=== PATIENT | male | born 1930 | race Asian ===

== ENCOUNTER 2016-06-02 04:02 | Inpatient (IN) | payer MEDICARE, OTHER ==
[~2016-06-02] VITALS: Ht 162.6 cm; Wt 61.8 kg
[2016-06-02] MEDS ORDERED: CEFTRIAXONE 1 GM/50 ML (PMX) 50 ML IVPB STA (04:51)
[2016-06-02] MEDS ORDERED: SOD CHLORIDE 0.9% 1,000 ML IV STA (04:51)
[2016-06-02] MEDS ORDERED: ALBUTEROL 0.5% (NEB) 2.5 MG/0.5 ML AMP INH STA (04:51)
[2016-06-02] MEDS ORDERED: AZITHROMYCIN 500MG/250 ML NS IVPB IV STA (04:51)
--- NOTE | 2016-06-02 04:59 | ERA ---
ER Documentation Chief Complaint Date/Time DATE: 06/02/16 TIME: 04:56 Chief Complaint incessant cough and vomiting since 2250 last night. Appears unwell HPI Patient is an 85-year-old male who has had cough and congestion for the last 3 months however he developed increasing respiratory distress last night. They have seen their primary care physician who is done a chest x-ray was which was within normal limits and who evaluated him for possible recurrent lymphoma which was also negative. Initially the patient had flulike symptoms which started all this coughing and congestion. His flulike symptoms apparently resolved but the coughing and congestion never went away. Patient does not have any chest pain, fever, sore throat, otalgia, or rhinorrhea. His coughing and congestion has progressed however he does not produce any sputum. He has become so dyspneic he can ambulate nor can he lay down flat. He has not had any swelling or edema. He does not have any abdominal pain or nausea or vomiting. He is never experienced these symptoms before. Nothing seems to help him. The remainder of the systems are negative ROS All systems reviewed and are negative except as per history of present illness. Medications Home Meds No Active Prescriptions or Reported Meds Allergies Allergies: Coded Allergies: No Known Allergies (Verified Allergy, Unknown, 04/28/15) PMhx/Soc History of Surgery: Yes (bilat brain hematoma drain,rt knee sx) Anesthesia Reaction: No Hx Neurological Disorder: Yes (Seizure) Hx Respiratory Disorders: No Hx Cardiac Disorders: Yes (HTN) Hx Psychiatric Problems: Yes (Depression) Hx Miscellaneous Medical Probl: Yes (UTI,non-Hodgkins lymphoma,DM) Hx Alcohol Use: No Hx Substance Use: No Hx Tobacco Use: Yes (ex-smoker) Smoking Status: Former smoker FmHx Family History: coronary disease Physical Exam Vitals Vital Signs Date Time Temp Pulse Resp B/P Pulse Ox O2 Delivery O2 Flow Rate FiO2 06/02/16 05:44 97 24 100 Non Rebreather Mask 15.0 06/02/16 05:05 104 32 113/88 98 Non Rebreather 15.0 06/02/16 04:50 Non Rebreather 15 06/02/16 04:11 98.6 109 34 105/58 82 Physical Exam Const: [] Well-developed male lying on the bed with obvious respiratory distress Head: Atraumatic normocephalic Eyes: Normal Conjunctiva ENT: Normal External Ears, Nose and Mouth. Neck: Full range of motion..~ No meningismus. Resp: Moderate respiratory distress noted with tachypnea, retractions, nasal flaring, crackles noted in the right base Cardio: Regular rate and rhythm, no murmurs Abd: Soft, non tender, non distended. Normal bowel sounds Skin: No petechiae or rashes Back: No midline or flank tenderness Ext: No cyanosis, or edema Neur: Awake and alert, oriented 3, generally weak but moves all extremities equally Psych: Normal Mood and Affect Result Diagram: 06/02/16 0505 06/02/16 0505 Results 24 hrs Laboratory Tests Test 06/02/16 04:51 06/02/16 05:05 Arterial Blood HCO3 18.4mmol/L Arterial Blood Base Excess -4.9mmol/L Arterial Blood Oxygen Saturation 95.3mmHG Tom Test ACCEPTAB Arterial Blood Gas Puncture Site Right Radial Arterial Blood Carboxyhemoglobin 0.3% Arterial Blood Date Drawn 06/02/2016 5:37:52 AM Arterial Blood Methemoglobin 0.5% Arterial Blood pCO2 (Temp correct) 29.9mmhg Arterial Blood pH (Temp corrected) 7.408 Arterial Blood pO2 (Temp corrected) 79.8mmHG Blood Gas A-a O2 Differential 603.3mmHg Blood Gas Modality MASK - NRB Blood Gas Notified Time 06/02/2016 5:43:38 AM Blood Gas Notified Whom BR Blood Gas Specimen Source Blood arterial Blood Gas Temperature 37.0C FiO2 100.0% Oxyhemoglobin Percent 94.5% Total Hemoglobin 14.4g/dl Activated Partial Thromboplast Time 25.9Sec Alanine Aminotransferase (ALT/SGPT) 24IU/L Albumin 4.3g/dl Albumin/Globulin Ratio 1.30 Alkaline Phosphatase 106IU/L Anion Gap 23 Aspartate Amino Transf (AST/SGOT) 25IU/L B-Type Natriuretic Peptide 268PG/ML Basophils # 0.010^3/ul Basophils % 0.2% Blood Urea Nitrogen 38mg/dl Calcium Level 9.9mg/dl Carbon Dioxide Level 21mmol/L Chloride Level 100mmol/L Creatinine 0.87mg/dl Direct Bilirubin 0.00mg/dl Eosinophils # 0.010^3/ul Eosinophils % 0.1% Globulin 3.30g/dl Glucose Level 137mg/dl Hematocrit 42.3% Hemoglobin 14.4g/dl INR International Normalized Ratio 0.97 Indirect Bilirubin 0.6mg/dl Lactic Acid Level 6.2mmol/L Lymphocytes # 0.810^3/ul Lymphocytes % 4.9% Mean Corpuscular Hemoglobin 28.8pg Mean Corpuscular Hemoglobin Concent 34.0g/dl Mean Corpuscular Volume 84.6fl Mean Platelet Volume 9.0fl Monocytes # 0.610^3/ul Monocytes % 3.6% Neutrophils # 14.410^3/ul Neutrophils % 90.9% Nucleated Red Blood Cells # 0.010^3/ul Nucleated Red Blood Cells % 0.0/100WBC Platelet Count 82037^3/UL Potassium Level 4.0mmol/L Prothrombin Time 12.9Sec Prothrombin Time Ratio 1.0 Red Blood Count 5.0010^6/ul Red Cell Distribution Width 13.9% Sodium Level 140mmol/L Total Bilirubin 0.6mg/dl Total Protein 7.6g/dl Troponin I < 0.010ng/ml White Blood Count 15.910^3/ul Current Medications Medications (Trade) Dose Ordered Sig/Sidney Route PRN Reason Start Time Stop Time Status Last Admin Dose Admin Sodium Chloride (NS) 1,000 ml @ 1,000 mls/hr Q1H STAT IV 06/02/16 04:51 06/02/16 05:50 DC 06/02/16 05:16 Albuterol (Proventil 0.5% (Neb)) 10 mg ONCE STAT INH 06/02/16 04:51 06/02/16 04:55 DC 06/02/16 05:44 Azithromycin 500 mg 500 mg ONCE STAT IV 06/02/16 04:51 06/02/16 04:55 DC 06/02/16 06:08 Ceftriaxone Sodium (Rocephin) 50 ml @ 100 mls/hr ONCE STAT IVPB 06/02/16 04:51 06/02/16 05:20 DC 06/02/16 05:26 IV Flush 10 ml 10 ml STK-MED ONCE .ROUTE 06/02/16 05:44 06/02/16 05:45 DC Sodium Chloride 100 ml @ ud STK-MED ONCE .ROUTE 06/02/16 05:44 06/02/16 05:45 DC Iohexol 100 ml @ ud STK-MED ONCE .ROUTE 06/02/16 05:44 06/02/16 05:45 DC Iohexol (Omnipaque) 100 ml @ ud STK-MED ONCE .ROUTE 06/02/16 05:44 06/02/16 05:45 DC Procedures/MDM Differential includes but is not limited to congestive heart failure, pulmonary edema, pneumonia, pleural effusion, pulmonary embolus, cancer EKG: Rate/Rhythm: Normal Sinus Rhythm at 103 bpm patient has T-wave inversions noted in lateral leads, he has significant motion artifact noted QRS, ST, T-waves: No changes consistent w/ acute ischemia Impression: No evidence of ischemia or arrhythmia Chest x-ray confirms that he has a right middle and right lower lobe pneumonia Patient is currently receiving his neb treatment. I have a call out to Dr. Maribeth Lima to admit him to the stepdown unit. I have discussed his pneumonia with his family. A CAT scan of his chest is pending at this time. Critical care time of 40 minutes not to include procedures. Departure Diagnosis: Primary Impression: Pneumonia Qualified Code: J18.9 - Pneumonia of right lower lobe due to infectious organism Additional Impressions: Dyspnea Qualified Code: R06.02 - Shortness of breath Hypoxemia Respiratory distress Condition: JILLIAN Daigle Jun 02, 2016 04:59
[2016-06-02 05:21] LABS: ADD SCAN DIFF NO
[2016-06-02 05:24] LABS: BASOPHILS % 0.2 % (0.0-2.0); EOSINOPHILS % 0.1 % (0.0-7.0); HEMATOCRIT 42.3 % (42.0-52.0); HEMOGLOBIN 14.4 g/dl (14.0-18.0); LYMPHOCYTES # 0.8 10^3/ul (0.8-2.9); LYMPHOCYTES % 4.9 % (15.0-51.0); MEAN CORPUSCULAR HEMOGLOBIN 28.8 pg (29.0-33.0); MEAN CORPUSCULAR VOLUME 84.6 fl (82.0-101.0); MONOCYTE # 0.6 10^3/ul (0.3-0.9); MONOCYTES % 3.6 % (0.0-11.0); NEUTROPHIL # 14.4 10^3/ul (1.6-7.5); NEUTROPHILS % 90.9 % (39.0-77.0); PLATELET COUNT 301 10^3/UL (140-415); RED CELL DISTRIBUTION WIDTH 13.9 % (11.5-14.5); WHITE BLOOD COUNT 15.9 10^3/ul (4.8-10.8)
[2016-06-02 05:34] LABS: ALBUMIN 4.3 g/dl (3.3-4.9)
[2016-06-02 05:35] LABS: CHLORIDE 100 mmol/L (97-110); INR 0.97; PROTIME 12.9 Sec (12.2-14.2); SODIUM 140 mmol/L (135-144)
[2016-06-02 05:36] LABS: PARTIAL THROMBOPLASTIN TIME 25.9 Sec (25.0-35.0)
[2016-06-02 05:37] LABS: ALKALINE PHOSPHATASE 106 IU/L (42-121); ANION GAP 23 (8-16); ASPARTATE AMINO TRANSFERASE 25 IU/L (15-46); BILIRUBIN,INDIRECT 0.6 mg/dl (0-1.1); BILIRUBIN,TOTAL 0.6 mg/dl (0.2-1.3); CARBON DIOXIDE 21 mmol/L (21-31); CREATININE 0.87 mg/dl (0.61-1.24); TOTAL PROTEIN 7.6 g/dl (6.1-8.1)
[2016-06-02 05:38] LABS: ALANINE AMINOTRANSFERASE 24 IU/L (13-69); BLOOD UREA NITROGEN 38 mg/dl (7-20); CALCIUM 9.9 mg/dl (8.4-10.2); GLUCOSE 137 mg/dl (70-220)
[2016-06-02 05:43] LABS: AADO2 Arterial 603.3 mmHg (7.0-24.0); Allen Test ACCEPTAB; Arterial Base Excess -4.9 mmol/L (-3.0-3); Arterial COHb 0.3 % (0.0-3.0); Arterial Fraction of Oxyhgb 94.5 % (93.0-99.0); Arterial HCO3 18.4 mmol/L (22.0-26.0); Arterial MetHb 0.5 % (0.0-1.5); Arterial Total Hemglobin 14.4 g/dl (12.0-18.0); MODE MASK - NRB
[2016-06-02] MEDS ORDERED: SOD CHLORIDE 0.9% 100 ML ONE (05:44)
[2016-06-02] MEDS ORDERED: IOHEXOL 100 ML ONE ×2 (05:44)
[2016-06-02 05:47] LABS: B-TYPE NATRIURETIC PEPTIDE 268 PG/ML (0-450)
[2016-06-02 05:52] LABS: TROPONIN-I < 0.010 ng/ml (0.00-0.12)
--- NOTE | 2016-06-02 06:11 | RADRPT ---
PROCEDURE: CHEST - 1 VIEW CLINICAL INDICATION: 85-year-old male with shortness of breath. TECHNIQUE: A single frontal AP view of the chest was performed portably. The images were reviewed on a PACS workstation. COMPARISON: And 2015 FINDINGS: The cardiomediastinal silhouette is within normal limits. There is diffuse patchy infiltrate within the right mid/lower lung zone. There is mild left basilar subsegmental atelectasis. There is no evidence for congestive heart failure. There is no evidence for pneumothorax. The osseous structures are intact. IMPRESSION: 1. Diffuse patchy right mid/lower lung zone infiltrate. 2. Mild left basilar subsegmental atelectasis. .Ray Ace MD, MD Date Time Electronically viewed and signed by .Ray Ace MD, MD on 06/02/2016 06:11 .Missy/
[2016-06-02] MEDS ORDERED: SOD CHLORIDE 0.9% 1,000 ML IV SCH (07:51)
[2016-06-02] MEDS ORDERED: DOCUSATE SODIUM 100 MG CAP PO PRN (08:00)
[2016-06-02] MEDS ORDERED: ONDANSETRON 4 MG INJ IV PRN ×2 (08:00)
[2016-06-02] MEDS ORDERED: ACETAMINOPHEN 325 MG TAB PO PRN (08:00)
[2016-06-02] MEDS ORDERED: NACL 0.9% 3 ML SYG IV SCH (08:00)
[2016-06-02] MEDS ORDERED: SOD CHLORIDE 0.9% 1,000 ML IV ONE ×2 (08:00→10:30)
[2016-06-02] MEDS ORDERED: MAGNESIUM HYDROXIDE 30ML CUP PO PRN (08:00)
[2016-06-02] MEDS ORDERED: HYDROCODONE/APAP (5/325) TAB PO PRN ×2 (08:00)
[2016-06-02] MEDS ORDERED: BISACODYL (EC) 5 MG TAB PO PRN (08:00)
--- NOTE | 2016-06-02 08:12 | EN ---
Date/Time of Note Date/Time of Note DATE: 06/02/16 TIME: 08:11 ER Progress Note This patient was signed out to me as the admitting physician had not been spoken to. I spoke to Dr. Benito, who will be admitting this patient to telemetry. The admission underwent an that her Dr. Ahn because Dr. Choudhury name did not appear as an option in the computer even though he does have admitting privileges here. Patient is currently doing well and speaking full sentences on a nonrebreather mask. AMARI FOSTER DO Jun 02, 2016 08:12
[2016-06-02] MEDS ORDERED: HYPOGLYCEMIA PROTOCOL when Glucose is <70 mg/dL or symptomatic <90 mg/dL. XX ONE (08:30)
[2016-06-02] MEDS: HEPARIN 5,000 UNIT/0.5 ML SYG SC SCH ×2 (08:44→22:36)
[2016-06-02] MEDS: metroNIDAZOLE 500 MG/NS (PMX) 100 ML IVPB SCH ×3 (08:46→22:28)
[2016-06-02] MEDS: IPRATROPIUM (NEB) 0.5 MG/2.5 ML AMP NEB SCH ×5 (09:00→21:24)
[2016-06-02] MEDS: ALBUTEROL 0.5% (NEB) 2.5 MG/0.5 ML AMP NEB SCH ×5 (09:00→21:24)
--- NOTE | 2016-06-02 09:22 | RADRPT ---
PROCEDURE: CTA Chest. CLINICAL INDICATION: Shortness of breath. TECHNIQUE: Multiple contiguous axial CT images of the chest were obtained following the administra tion of 110 cc of Omnipaque 350 intravenous contrast. Coronal, sagittal and 3-D reconstructions we re also obtained. CTDIvol(mGy): 4.69, 32.86, 10.54; Total Exam DLP (mGy-cm): 437.77. COMPARISON: Chest x-ray 06/02/2016. FINDINGS: Limited imaging of the lower neck is unremarkable. The heart is not enlarged. There is no pericardial effusion. There is no mediastinal, hilar or axi llary lymphadenopathy. The thoracic aorta is normal in caliber with atherosclerotic calcification. The pulmonary arteries are not enlarged. There are no central filling defects to suggest the prese nce of acute pulmonary embolism. Patchy consolidation is seen within throughout the right lung. Scattered few peribronchovascular gr ound-glass nodules are also present throughout the right lung. The left lung is clear. There is no pleural effusion. The tracheobronchial tree is normal in caliber. Limited imaging of the upper abdomen is unremarkable. Bony mineralization is decreased. Moderate anterior wedge deformity of L1 is observed. Degenerativ e changes of the spine are present. IMPRESSION: No evidence of acute pulmonary embolism. Patchy consolidation throughout the right lung suggesting sequelae of pneumonia. Correlate with del ropriate clinical data and signs and symptomatology. RPTAT: HLST .Sophy Green MD, MD Date Time Electronically viewed and signed by .Sophy Green MD, on 06/02/2016 09:22 .T/
[2016-06-02] MEDS ORDERED: DEXTROSE 50% 50 ML SYRINGE IV PRN ×2 (09:30)
[2016-06-02] MEDS ORDERED: GLUCAGON 1 MG INJ IM PRN (09:30)
[2016-06-02] MEDS ORDERED: GLUCOSE GEL 15 GRAM TUBE PO PRN ×2 (09:30)
[2016-06-02] MEDS ORDERED: GLUCOSE GEL 15 GRAM TUBE BUCCAL PRN (09:30)
--- NOTE | 2016-06-02 10:44 | HP ---
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 Multiple possible etiologies of which aspiration PNA is most likely. But also with confirmed Influenza B. Can also have CAP. Lower likelihood for health care associated PNA -empiric abx: ceftriaxone/azithro/flagyl. Low threshold to broaden to vanc/zosyn -oseltamivir 75 mg po BID x 5 days -f/u cultures -trend lactate -currently receiving 3 L NS. Also running NS 100 cc/hr #aspiration PNA -see above #influenza B -see above Pulm #respiratory distress -NRB, titrate 02 as needed -will avoid BIPAP given aspiration risk, intubation is ok but not necessary at this time Acid/Base (renal) #lactic acidosis-likely 2/2 sepsis and dehdration in setting of recent emesis. -aggressive fluid resuscitation for now Cards #HTN-currently normotensive likely 2/2 volume depletion/sepsis -will hold off on meds for now. Can add back norvasc 5 and spironolactone when improved Endo #DMII-BG goal 140-180. Well controlled at home -sliding scale for now -hold lantus 20 for now as NPO -hold metformin in inpatient setting Neuro #dysphagia -formal speech eval when clinically improved -no feeds for now -can resume low dose d5 later today but will have to monitor BG closely Rheum #gout -hold allopurinol for now to minimize pill burden Goals of Care -had at length discussion with patient and son. Patient is DNR. Short term intubation ok. Central line if indicated would be ok as well for pressors, etc. Fen/PPX -NPO for now -HSQ/SCD for DVT ppx -GI ppx will be ordered IV for now as patient with hx of GERD and would like to minimize pill burden at this time. HPI/ROS Admit Date/Time Admit Date/Time 06/02/2016 0900 Hx of Present Illness *hx obtained from patient and confirmed by son who was present throughout encounter. 85 y/o male pmh idiopathic SDH s/p craniotomy x 2, G tube placement for dysphagia, DMII (Last A1c 6.1), HTN, Gout, HLD, Non Hodgkins Lymphoma (in remission) who presented with respiratory distress and found to have RML/RLL PNA. Patient has had cough for about 3 months. He has been G tube dependent but had passed a swallow study about 3 months ago and soft oral feeds were starting to be introduced when patient developed a cough. Patient has had a cough, mostly at night for 3 months. Has had outpatient chest xrays and multiple courses of abx. Patient describes that cough is mostly at night when he is sleeping or laying down. Of note patient has continuous feeds for 20 hours per day, even at night when supine/sleeping. 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 He describes that vomitus was mostly g tube feeds. Er course: patient came in around 4 am. Was saturating low 80s on RA. Tachypnic to mid 30s. Started on NRB. Given 2 L NS. Lactic acid initially 6.2 on repeat ~ 12. 3rd liter of NS ordered. Leukocytosis w/ neutrophil predominance, WBC 15.9. He had a CXR w/ e/o R mid/lower lobe patchy infiltrate. Also had CTA which ruled out PE. Patient received azithromycin and rocephin IV x1. Also received nebs. AB.4 29/.9 79 18 on 15 L NRB. Blood cultures and flu swab also done. Patient found to be positive for Influenza B. Tamiflu ordered. EKG NSR w/ no e/ o acute ischemia. At this point patient reports sob mildly improved. Tachypnea has improved. He is saturating well on 10 L NRB. He denies fevers, chills, chest pain, diarrhea, constipation, dysuria, difficulty voiding, abdominal pain. PMH/Family/Social Past Medical History NHL (PET negative 2016), idiopathic SDH s/p craniotomy x 2, Dysphagia s/p G tube , DMII (A1c 6.1), HTN, HLD Past Surgical History appendectomy, tonsillectomy, laminectomy, prostatectomy, craniotomy x 2. Past Surgical Hx: appendectomy, other Family History Significant Family History: no pertinent family hx Social History Alcohol Use: none Smoking Status: Former smoker Drug Use: none Exam/Review of Systems Vital Signs Vitals Vital Signs Date Time Temp Pulse Resp B/P Pulse Ox O2 Delivery O2 Flow Rate FiO2 06/02/16 07:44 109 31 110/64 96 Non Rebreather 10.0 06/02/16 04:11 98.6 Intake and Output 06/01/16 06/01/16 06/02/16 15:00 23:00 07:00 Intake Total 50 ml Balance 50 ml Exam Exam Gen: mild respiratory distress, WD/WN HEENT: OP clear, no scleral icterus, MMM Resp: Crackles/mild wheezes RML/RLL. minimal wheezing on left. Cards: distant heart sounds but appears to be rrr w/o murmur/rubs/gallops Abd: soft, NT/ND, +BS, area around G tube without erythema/tenderness/ cellulitis. No purulence. Ext: no c/c/e Labs Result Diagram: 06/02/16 0505 06/02/16 0505 Medications Medications Current Medications Sodium Chloride (NS) 1,000 ml @ 100 mls/hr Q10H IV Last administered on 08:34; Admin Dose 100 MLS/HR; Start 06/02/16 at 07:51; Stop 06/02/16 at 16: 00 Ondansetron HCl (Zofran Inj) 4 mg Q6H PRN IV NAUSEA AND/OR VOMITING; Start at 08:00 Acetaminophen (Tylenol Tab) 650 mg Q6H PRN PO PAIN LEVEL 1-3 OR FEVER; Start at 08:00 Bisacodyl (Dulcolax) 5 mg DAILY PRN PO CONSTIPATION; Start 06/02/16 at 08:00 Heparin Sodium (Porcine) 5000 unit 5,000 unit Q12 SC Last administered on 08:44; Admin Dose 5,000 UNIT; Start 06/02/16 at 09:00 Ceftriaxone Sodium 50 ml @ 100 mls/hr Q24H IVPB ; Start 06/03/16 at 05:00 Azithromycin 250 ml @ 250 mls/hr Q24H IV ; Start 06/03/16 at 06:00 Metronidazole (Flagyl 500 Mg (Pmx)) 100 ml @ 100 mls/hr Q8 IVPB Last administered on 06/02/16t 08:46; Admin Dose 100 MLS/HR; Start 06/02/16 at 08:30 Miscellaneous Information 1 ea NOTE XX ; Start 06/02/16 at 09:30 Glucose (Glutose) 15 gm Q15M PRN PO DECREASED GLUCOSE; Start 06/02/16 at 09:30 Glucose (Glutose) 22.5 gm Q15M PRN PO DECREASED GLUCOSE; Start 06/02/16 at 09: 30 Dextrose (D50w Syringe) 25 ml Q15M PRN IV DECREASED GLUCOSE; Start 06/02/16 at 09:30 Dextrose (D50w Syringe) 50 ml Q15M PRN IV DECREASED GLUCOSE; Start 06/02/16 at 09:30 Glucagon (Glucagen) 1 mg Q15M PRN IM DECREASED GLUCOSE; Start 06/02/16 at 09:30 Glucose (Glutose) 15 gm Q15M PRN BUCCAL DECREASED GLUCOSE; Start 06/02/16 at 09 :30 Diagnostic Test (Pha) (Accucheck) 1 ea 02 XX ; Start 06/03/16 at 02:00 Levetiracetam (Keppra) 500 mg Q12 PO ; Start 06/02/16 at 21:00 SEDA BERGERON MD Jun 02, 2016 10:19
[2016-06-02] MEDS: OSELTAMIVIR 75 MG CAP PO SCH ×2 (10:46→22:23)
[2016-06-02] MEDS: INSULIN ASPART [NOVOLOG] 3 ML PEN SC SCH ×3 (12:00→21:00)
[2016-06-02 16:43] LABS: ADD UMIC NO; URINE BILIRUBIN (Dip) NEGATIVE (NEGATIVE); URINE BLOOD (Dip) NEGATIVE (NEGATIVE); URINE COLOR LT. YELLOW (YELLOW); URINE GLUCOSE (Dip) NEGATIVE (NEGATIVE); URINE KETONES (Dip) TRACE (NEGATIVE); URINE LEUKOCYTE ESTERASE (Dip) NEGATIVE (NEGATIVE); URINE NITRITE (Dip) NEGATIVE (NEGATIVE); URINE TOTAL PROTEIN (Dip) NEGATIVE (NEGATIVE); URINE UROBILINOGEN (Dip) 0.2 E.U./dL (0.1-1.0)
[2016-06-02 16:51] LABS: AADO2 Arterial 323.3 mmHg (7.0-24.0); Allen Test ACCEPTAB; Arterial Base Excess -11.8 mmol/L (-3.0-3); Arterial COHb 0.1 % (0.0-3.0); Arterial Fraction of Oxyhgb 94.8 % (93.0-99.0); Arterial HCO3 12.7 mmol/L (22.0-26.0); Arterial MetHb 0.5 % (0.0-1.5); Arterial Total Hemglobin 13.3 g/dl (12.0-18.0); MODE MASK - SIMPLE
[2016-06-02] MEDS: DEXTROSE 5%-0.45% NACL 1,000 ML IV SCH (18:15)
[2016-06-02 20:30] VITALS: BP 139/79; PULSE 103; RESP 20
[2016-06-02 20:40] VITALS: PULSE 102
[2016-06-02 20:45] VITALS: Ht 162.6 cm; Wt 61.8 kg
[2016-06-02 21:05] VITALS: BP 139/79; RESP 16
[2016-06-02] MEDS: LEVETIRACETAM 500 MG TAB PO SCH (22:23)
[2016-06-02 23:22] VITALS: BP 139/72; RESP 16
[2016-06-03] VITALS (12 sets, daily range): BP systolic 103–135; BP diastolic 60–68; PULSE 93–98; RESP 16–18
[2016-06-03] MEDS: INSULIN ASPART [NOVOLOG] 3 ML PEN SC SCH ×5 (00:42→21:00)
[2016-06-03] MEDS: IPRATROPIUM (NEB) 0.5 MG/2.5 ML AMP NEB SCH ×6 (01:14→21:00)
[2016-06-03] MEDS: ALBUTEROL 0.5% (NEB) 2.5 MG/0.5 ML AMP NEB SCH ×6 (01:14→21:00)
[2016-06-03] MEDS: ACCUCHECK AT 2AM (Patients on SS coverage) XX SCH (02:00)
[2016-06-03] MEDS ORDERED: [UNRECOGNIZED DRUG - CODE] GTB (05:16)
[2016-06-03] MEDS ORDERED: SPIR100T31 GTB (05:16)
[2016-06-03] MEDS ORDERED: LEVE500T8 GTB (05:16)
[2016-06-03] MEDS ORDERED: CLON-379 GTB (05:16)
[2016-06-03] MEDS ORDERED: CHLO12TA GTB (05:16)
[2016-06-03] MEDS ORDERED: MAGN400T27 GTB (05:16)
[2016-06-03] MEDS ORDERED: CHOL40002 GTB (05:16)
[2016-06-03] MEDS ORDERED: LANT3I SC (05:16)
[2016-06-03] MEDS ORDERED: AMLO-145 GTB (05:16)
[2016-06-03] MEDS ORDERED: METF500T4 PO (05:16)
[2016-06-03] MEDS ORDERED: METF-382 GTB (05:16)
[2016-06-03] MEDS ORDERED: ALLO100T GTB (05:16)
[2016-06-03] MEDS ORDERED: LACT1CAP35 GTB (05:16)
[2016-06-03] MEDS ORDERED: ACET500C5 GTB (05:16)
[2016-06-03] MEDS: DEXTROSE 5%-0.45% NACL 1,000 ML IV SCH ×2 (05:20→10:58)
[2016-06-03] MEDS: CEFTRIAXONE 1 GM/50 ML (PMX) 50 ML IVPB SCH (05:31)
[2016-06-03] MEDS: metroNIDAZOLE 500 MG/NS (PMX) 100 ML IVPB SCH ×3 (06:11→22:38)
[2016-06-03 06:52] LABS: ADD SCAN DIFF NO
[2016-06-03 07:06] LABS: BASOPHILS % 0.2 % (0.0-2.0); EOSINOPHILS % 0.1 % (0.0-7.0); HEMATOCRIT 30.6 % (42.0-52.0); HEMOGLOBIN 10.4 g/dl (14.0-18.0); LYMPHOCYTES # 1.2 10^3/ul (0.8-2.9); LYMPHOCYTES % 6.4 % (15.0-51.0); MEAN CORPUSCULAR HEMOGLOBIN 28.9 pg (29.0-33.0); MEAN PLATELET VOLUME 9.4 fl (7.4-10.4); MONOCYTE # 0.8 10^3/ul (0.3-0.9); MONOCYTES % 4.2 % (0.0-11.0); NEUTROPHIL # 16.5 10^3/ul (1.6-7.5); NEUTROPHILS % 87.4 % (39.0-77.0); PLATELET COUNT 245 10^3/UL (140-415); RED CELL DISTRIBUTION WIDTH 14.2 % (11.5-14.5); WHITE BLOOD COUNT 18.9 10^3/ul (4.8-10.8)
[2016-06-03 07:16] LABS: POTASSIUM 3.6 mmol/L (3.5-5.1)
[2016-06-03 07:19] LABS: CREATININE 0.6 mg/dl (0.61-1.24)
[2016-06-03 07:23] LABS: CALCIUM 8.9 mg/dl (8.4-10.2); MAGNESIUM 1.5 mg/dl (1.7-2.5)
--- NOTE | 2016-06-03 07:47 | PN ---
Date/Time of Note Date/Time of Note DATE: 06/03/16 TIME: 07:35 Assessment/Plan VTE Prophylaxis VTE Prophylaxis Intervention: SCD's Lines/Catheters IV Catheter Type (from Nrs): [place] Lock Urinary Cath still in place: Yes Reason Cath still needed: urinary retention Assessment/Plan Chief Complaint/Hosp Course 1. R pneumonia , either aspiration or community acquired . 2. h/o bilateral subdural hematomas s/p surgery 3. non Hodgekins lymphoma 4. DM 5. HTN 6. h/o encephalitis / encephalopathy 1 year ago 7. diffuse weakness 8. recent PET scan showed bilateral hydronephrosis , renal ultrasound ordered . 9. dysphagia , speech therapy ordered .he has PEG for feeding , dietary consult Problems: Subjective 24 Hr Interval Summary Free Text/Dictation He is awake but does have some expressive aphasia .He was admitted yesterday morning with an expressive aphasia . Respiratory: cough Cardiovascular: no complaints Gastrointestinal: no complaints Genitourinary: no complaints Exam/Review of Systems Vital Signs Vitals Vital Signs Date Time Temp Pulse Resp B/P Pulse Ox O2 Delivery O2 Flow Rate FiO2 06/03/16 05:28 89 18 94 Nasal Cannula 4.0 37 06/03/16 03:28 98.2 135/68 Intake and Output 06/02/16 06/02/16 06/03/16 15:00 23:00 07:00 Intake Total 1055 ml Output Total 1850 ml Balance -795 ml Exam Constitutional: alert Psych: confusion Head: normocephalic Respiratory: congested cough Cardiovascular: regular rate and rhythm Gastrointestinal: soft Musculoskeletal: nl extremities to inspection Results Result Diagram: 06/03/16 0522 06/03/16 0522 Results 24 hrs Laboratory Tests Test 06/02/16 09:39 06/02/16 10:08 06/02/16 12:32 06/02/16 14:17 Lactic Acid Level 12.2 *H 11.5 *H Arterial Blood HCO3 12.7 L Arterial Blood Base Excess -11.8 L Arterial Blood Oxygen Saturation 95.4 Tom Test ACCEPTAB Arterial Blood Gas Puncture Site Right Radial Arterial Blood Carboxyhemoglobin 0.1 Arterial Blood Date Drawn 06/02/2016 4:45:30 PM Arterial Blood Methemoglobin 0.5 Arterial Blood pCO2 (Temp correct) 25.9 L Arterial Blood pH (Temp corrected) 7.310 L Arterial Blood pO2 (Temp corrected) 83.2 Blood Gas A-a O2 Differential 323.3 H Blood Gas Modality MASK - SIMPLE Blood Gas Notified Time 06/02/2016 4:51:13 PM Blood Gas Notified Whom RT Blood Gas Specimen Source Blood arterial Blood Gas Temperature 37.0 FiO2 61.0 Oxyhemoglobin Percent 94.8 Total Hemoglobin 13.3 Bedside Glucose 220 Test 06/02/16 16:35 06/02/16 22:26 06/03/16 00:41 06/03/16 05:22 Urine Bilirubin NEGATIVE Urine Clarity CLEAR Urine Color LT. YELLOW Urine Glucose NEGATIVE Urine Hemoglobin NEGATIVE Urine Ketones TRACE Urine Leukocyte Esterase NEGATIVE Urine Nitrite NEGATIVE Urine Specific [place] 1.015 Urine Total Protein NEGATIVE Urine Urobilinogen 0.2 E.U./dL Urine pH 5.5 Bedside Glucose 197 164 Anion Gap 18 H Basophils # 0.0 Basophils % 0.2 Blood Urea Nitrogen 20 # Calcium Level 8.9 Carbon Dioxide Level 19 L Chloride Level 108 Creatinine 0.60 L Eosinophils # 0.0 Eosinophils % 0.1 Glucose Level 129 Hematocrit 30.6 #L Hemoglobin 10.4 #L Lactic Acid Level 3.2 H Lymphocytes # 1.2 Lymphocytes % 6.4 L Magnesium Level 1.5 L Mean Corpuscular Hemoglobin 28.9 L Mean Corpuscular Hemoglobin Concent 34.0 Mean Corpuscular Volume 85.0 Mean Platelet Volume 9.4 Monocytes # 0.8 Monocytes % 4.2 Neutrophils # 16.5 H Neutrophils % 87.4 H Nucleated Red Blood Cells # 0.0 Nucleated Red Blood Cells % 0.0 Platelet Count 245 Potassium Level 3.6 Red Blood Count 3.60 #L Red Cell Distribution Width 14.2 Sodium Level 141 White Blood Count 18.9 H Medications Medications Current Medications Ondansetron HCl (Zofran Inj) 4 mg Q6H PRN IV NAUSEA AND/OR VOMITING; Start at 08:00 Acetaminophen (Tylenol Tab) 650 mg Q6H PRN PO PAIN LEVEL 1-3 OR FEVER; Start at 08:00 Bisacodyl (Dulcolax) 5 mg DAILY PRN PO CONSTIPATION; Start 06/02/16 at 08:00 Heparin Sodium (Porcine) 5000 unit 5,000 unit Q12 SC Last administered on t 22:36; Admin Dose 5,000 UNIT; Start 06/02/16 at 09:00 Ceftriaxone Sodium 50 ml @ 100 mls/hr Q24H IVPB Last administered on 05:31; Admin Dose 100 MLS/HR; Start 06/03/16 at 05:00 Azithromycin 250 ml @ 250 mls/hr Q24H IV ; Start 06/03/16 at 06:00 Metronidazole (Flagyl 500 Mg (Pmx)) 100 ml @ 100 mls/hr Q8 IVPB Last administered on 06/03/16 06:11; Admin Dose 100 MLS/HR; Start 06/02/16 at 08:30 Miscellaneous Information 1 ea NOTE XX ; Start 06/02/16 at 09:30 Glucose (Glutose) 15 gm Q15M PRN PO DECREASED GLUCOSE; Start 06/02/16 at 09:30 Glucose (Glutose) 22.5 gm Q15M PRN PO DECREASED GLUCOSE; Start 06/02/16 at 09: 30 Dextrose (D50w Syringe) 25 ml Q15M PRN IV DECREASED GLUCOSE; Start 06/02/16 at 09:30 Dextrose (D50w Syringe) 50 ml Q15M PRN IV DECREASED GLUCOSE; Start 06/02/16 at 09:30 Glucagon (Glucagen) 1 mg Q15M PRN IM DECREASED GLUCOSE; Start 06/02/16 at 09:30 Glucose (Glutose) 15 gm Q15M PRN BUCCAL DECREASED GLUCOSE; Start 06/02/16 at 09 :30 Diagnostic Test (Pha) (Accucheck) 1 ea 02 XX ; Start 06/03/16 at 02:00 Levetiracetam 500 mg 500 mg Q12 PO Last administered on 06/02/16 22:23; Admin Dose 500 MG; Start 06/02/16 at 21:00 Dextrose/Sodium Chloride (D5-1/2ns) 1,000 ml @ 75 mls/hr [id number] IV Last administered on 06/02/16 18:15; Admin Dose 75 MLS/HR; Start 06/02/16 at 16:00 Oseltamivir Phosphate (Tamiflu) 75 mg Q12 PO Last administered on 06/02/16 22: 23; Admin Dose 75 MG; Start 06/02/16 at 10:30; Stop 06/07/16 at 10:29 Allopurinol (Zyloprim) 100 mg DAILY GTB ; Start 06/03/16 at 09:00; Status UNV Amlodipine Besylate (Norvasc) 5 mg DAILY GTB ; Start 06/03/16 at 09:00; Status UNV Clonidine (Catapres) 0.1 mg Q4H PRN GTB ELEVATED BLOOD PRESSURE; Start at 07:30; Status UNV Levetiracetam (Keppra) 500 mg BID GTB ; Start 06/03/16 at 09:00; Status UNV Magnesium Oxide (Mag-Ox 400) 400 mg BID GTB ; Start 06/03/16 at 09:00; Status UNV Metformin HCl (Glucophage) 500 mg BID GTB ; Start 06/03/16 at 09:00; Status UNV Spironolactone (Aldactone) 25 mg DAILY GTB ; Start 06/03/16 at 09:00; Status UNV Miscellaneous Information 2,000 unit DAILY GTB ; Start 06/03/16 at 09:00; Status UNV Miscellaneous Information 1 each DAILY GTB ; Start 06/03/16 at 09:00; Status UNV Miscellaneous Information 1 each DAILY GTB ; Start 06/03/16 at 09:00; Status UNV MACIEJ VIDES MD Jun 03, 2016 07:46
[2016-06-03] MEDS: [UNRECOGNIZED DRUG - OTHER] XX SCH ×2 (08:00→16:00)
--- NOTE | 2016-06-03 08:06 | RADRPT ---
PROCEDURE: XR Chest. CLINICAL INDICATION: Shortness of breath. TECHNIQUE: Single frontal view. COMPARISON: 06/02/2016. FINDINGS: There is patchy air space disease throughout the right mid and lower lung zones consistent with pneu monia, unchanged. The lungs are otherwise clear. The heart size is normal. There is no pleural effusion. There is no pneumothorax. IMPRESSION: 1. Patchy pneumonia in the right mid and lower lung zones, unchanged. 2. Otherwise normal chest x-ray. RPTAT: QQ .Brooks Mares MD, MD Date Time Electronically viewed and signed by .Brooks Mares MD, MD on 06/03/2016 08:06 .R/
[2016-06-03] MEDS: ALLOPURINOL 100 MG TAB GTB SCH (08:39)
[2016-06-03] MEDS: CHOLECALCIFEROL 1,000 UNIT TAB GTB SCH (08:39)
[2016-06-03] MEDS: OSELTAMIVIR 75 MG CAP PO SCH ×2 (08:39→22:37)
[2016-06-03] MEDS: MULTIVITAMINS 5 ML CUP GTB SCH (08:39)
[2016-06-03] MEDS: SPIRONOLACTONE 25 MG TAB GTB SCH (08:40)
[2016-06-03] MEDS: metFORMIN 500 MG TAB GTB SCH ×2 (08:40→18:15)
[2016-06-03] MEDS: MAGNESIUM OXIDE 400 MG TAB GTB SCH ×2 (08:40→22:38)
[2016-06-03] MEDS: LEVETIRACETAM 500 MG TAB PO SCH ×2 (09:00→21:00)
[2016-06-03] MEDS: AZITHROMYCIN 500MG/NS (PMX) 250 ML IV SCH ×2 (09:00→10:58)
[2016-06-03] MEDS: LEVETIRACETAM 500 MG TAB GTB SCH ×2 (09:24→22:39)
--- NOTE | 2016-06-03 09:25 | RADRPT ---
PROCEDURE: Retroperitoneal US. CLINICAL INDICATION: Pain, hydronephrosis TECHNIQUE: Multiple sonographic images of the kidneys and retroperitoneum were obtained. The imag es were reviewed on a PACS workstation. COMPARISON: 06/02/2016 FINDINGS: The kidneys are normal in size, contour, cortical thickness and cortical echogenicity. The right kidney measures 10.2 cm. The left kidney measures 11.1 cm. There are bilateral simple kidney cysts, the largest in the right kidney measures 1.4 cm and the lar gest in the left kidney measures 2.2 cm. No kidney stones are visualized. There is mild left-sided hydronephrosis. The urinary bladder is not visualized. RPTAT: AA IMPRESSION: Mild left-sided hydronephrosis. Bilateral simple kidney cysts. .Jewel Rao MD, Date Time Electronically viewed and signed by .Jewel Rao MD, on 06/03/2016 09:25 .S/
[2016-06-03] MEDS: AMLODIPINE 5 MG TAB GTB SCH (09:26)
[2016-06-03] MEDS: LACTOBACILLUS RHAMNOSUS CAP GTB SCH (09:26)
[2016-06-03] MEDS: HEPARIN 5,000 UNIT/0.5 ML SYG SC SCH ×2 (09:36→22:41)
[2016-06-03] MEDS ORDERED: MAGNESIUM SULFATE 2 GM/50 ML 50 ML IVPB ONE (17:00)
[2016-06-03] MEDS ORDERED: POTASSIUM CHLORIDE 20 MEQ POWDER FOR ORAL SOLN GTB ONE (17:00)
[2016-06-04] VITALS (11 sets, daily range): BP systolic 125–137; BP diastolic 59–73; PULSE 88–101; RESP 17–18
[2016-06-04] MEDS: IPRATROPIUM (NEB) 0.5 MG/2.5 ML AMP NEB SCH ×6 (01:28→20:12)
[2016-06-04] MEDS: ALBUTEROL 0.5% (NEB) 2.5 MG/0.5 ML AMP NEB SCH ×6 (01:28→20:12)
[2016-06-04] MEDS: ACCUCHECK AT 2AM (Patients on SS coverage) XX SCH (01:44)
[2016-06-04] MEDS: AZITHROMYCIN 500MG/NS (PMX) 250 ML IV SCH (05:38)
[2016-06-04] MEDS: metroNIDAZOLE 500 MG/NS (PMX) 100 ML IVPB SCH ×3 (05:38→22:27)
[2016-06-04] MEDS: CEFTRIAXONE 1 GM/50 ML (PMX) 50 ML IVPB SCH (05:38)
[2016-06-04 06:16] LABS: ADD SCAN DIFF NO
[2016-06-04 06:21] LABS: BASOPHILS % 0.2 % (0.0-2.0); EOSINOPHILS % 0.2 % (0.0-7.0); HEMATOCRIT 31.5 % (42.0-52.0); HEMOGLOBIN 10.7 g/dl (14.0-18.0); LYMPHOCYTES # 2.6 10^3/ul (0.8-2.9); LYMPHOCYTES % 15.5 % (15.0-51.0); MEAN CORPUSCULAR HEMOGLOBIN 28.8 pg (29.0-33.0); MEAN CORPUSCULAR VOLUME 84.7 fl (82.0-101.0); MEAN PLATELET VOLUME 9.1 fl (7.4-10.4); MONOCYTE # 0.7 10^3/ul (0.3-0.9); MONOCYTES % 3.8 % (0.0-11.0); NEUTROPHIL # 13.3 10^3/ul (1.6-7.5); NEUTROPHILS % 78.6 % (39.0-77.0); PLATELET COUNT 226 10^3/UL (140-415); RED BLOOD COUNT 3.72 10^6/ul (4.70-6.10); RED CELL DISTRIBUTION WIDTH 14.6 % (11.5-14.5); WHITE BLOOD COUNT 16.9 10^3/ul (4.8-10.8)
[2016-06-04 06:30] LABS: POTASSIUM 3.7 mmol/L (3.5-5.1)
[2016-06-04 06:31] LABS: ALBUMIN 3.2 g/dl (3.3-4.9); POTASSIUM 3.6 mmol/L (3.5-5.1)
[2016-06-04 06:32] LABS: CREATININE 0.63 mg/dl (0.61-1.24)
[2016-06-04 06:33] LABS: BILIRUBIN,INDIRECT 0.4 mg/dl (0-1.1); BILIRUBIN,TOTAL 0.4 mg/dl (0.2-1.3); CREATININE 0.66 mg/dl (0.61-1.24)
[2016-06-04 06:34] LABS: ALBUMIN/GLOBULIN RATIO 0.8; CALCIUM 8.8 mg/dl (8.4-10.2); TOTAL PROTEIN 7.2 g/dl (6.1-8.1)
[2016-06-04 06:35] LABS: MAGNESIUM 1.8 mg/dl (1.7-2.5)
--- NOTE | 2016-06-04 08:39 | PN ---
Date/Time of Note Date/Time of Note DATE: 06/04/16 TIME: 08:33 Assessment/Plan VTE Prophylaxis VTE Prophylaxis Intervention: SCD's Lines/Catheters IV Catheter Type (from Nrs): Saline Lock Urinary Cath still in place: Yes Reason Cath still needed: urinary retention Assessment/Plan Chief Complaint/Hosp Course 1. R pneumonia , either aspiration or community acquired . He is positive for Influenza B and is on Tamiflu . 2. h/o bilateral subdural hematomas s/p surgery 3. h/o non Hodgekins lymphoma 4. DM 5. HTN 6. h/o encephalitis / encephalopathy 1 year ago 7. diffuse weakness 8. recent PET scan showed bilateral hydronephrosis , renal ultrasound done and only shows mild L hydronephrosis 9. dysphagia , speech therapy ordered .he has PEG for feeding , dietary consult , video swallowing study ordered Problems: Subjective 24 Hr Interval Summary Free Text/Dictation He is awake and able to talk , although slowly , he does have a cough Respiratory: cough Cardiovascular: no complaints Gastrointestinal: other Genitourinary: no complaints Musculoskeletal: no complaints Neurologic: other Exam/Review of Systems Vital Signs Vitals Vital Signs Date Time Temp Pulse Resp B/P Pulse Ox O2 Delivery O2 Flow Rate FiO2 06/04/16 08:16 101 06/04/16 07:42 100.4 17 134/71 94 06/04/16 05:25 Nasal Cannula 3.0 06/03/16 05:28 37 Intake and Output 06/03/16 06/03/16 06/04/16 15:00 23:00 07:00 Intake Total 755 ml 660 ml Output Total 1000 ml 950 ml Balance -245 ml -290 ml Exam He is weak diffusely Constitutional: alert, frail Respiratory: congested cough, crackles/rales Cardiovascular: regular rate and rhythm Gastrointestinal: soft Musculoskeletal: nl extremities to inspection Neurological: lethargic, other Results Result Diagram: 06/04/16 0552 06/04/16 0555 Results 24 hrs Laboratory Tests Test 06/03/16 11:58 06/03/16 17:15 06/03/16 20:42 06/04/16 05:52 Bedside Glucose 156 158 155 Anion Gap 17 H Basophils # 0.0 Basophils % 0.2 Blood Urea Nitrogen 16 Calcium Level 9.0 Carbon Dioxide Level 19 L Chloride Level 107 Creatinine 0.63 Eosinophils # 0.0 Eosinophils % 0.2 Glucose Level 160 Hematocrit 31.5 L Hemoglobin 10.7 L Lymphocytes # 2.6 Lymphocytes % 15.5 Mean Corpuscular Hemoglobin 28.8 L Mean Corpuscular Hemoglobin Concent 34.0 Mean Corpuscular Volume 84.7 Mean Platelet Volume 9.1 Monocytes # 0.7 Monocytes % 3.8 Neutrophils # 13.3 H Neutrophils % 78.6 H Nucleated Red Blood Cells # 0.0 Nucleated Red Blood Cells % 0.0 Platelet Count 226 Potassium Level 3.7 Red Blood Count 3.72 L Red Cell Distribution Width 14.6 H Sodium Level 139 White Blood Count 16.9 H Test 06/04/16 05:55 06/04/16 08:04 Alanine Aminotransferase (ALT/SGPT) 26 Albumin 3.2 L Albumin/Globulin Ratio 0.80 Alkaline Phosphatase 95 Anion Gap 17 H Aspartate Amino Transf (AST/SGOT) 25 Blood Urea Nitrogen 16 Calcium Level 8.8 Carbon Dioxide Level 19 L Chloride Level 107 Creatinine 0.66 Direct Bilirubin 0.00 Globulin 4.00 H Glucose Level 166 Indirect Bilirubin 0.4 Magnesium Level 1.8 Phosphorus Level 1.0 L Potassium Level 3.6 Sodium Level 139 Total Bilirubin 0.4 Total Protein 7.2 Bedside Glucose 203 Medications Medications Current Medications Ondansetron HCl (Zofran Inj) 4 mg Q6H PRN IV NAUSEA AND/OR VOMITING; Start at 08:00 Acetaminophen (Tylenol Tab) 650 mg Q6H PRN PO PAIN LEVEL 1-3 OR FEVER; Start at 08:00 Bisacodyl (Dulcolax) 5 mg DAILY PRN PO CONSTIPATION; Start 06/02/16 at 08:00 Heparin Sodium (Porcine) 5000 unit 5,000 unit Q12 SC Last administered on 22:41; Admin Dose 5,000 UNIT; Start 06/02/16 at 09:00 Ceftriaxone Sodium 50 ml @ 100 mls/hr Q24H IVPB Last administered on 05:38; Admin Dose 100 MLS/HR; Start 06/03/16 at 05:00 Azithromycin 250 ml @ 250 mls/hr Q24H IV Last administered on 06/04/16 05:38 ; Admin Dose 250 MLS/HR; Start 06/03/16 at 06:00 Metronidazole (Flagyl 500 Mg (Pmx)) 100 ml @ 100 mls/hr Q8 IVPB Last administered on 06/04/16 05:38; Admin Dose 100 MLS/HR; Start 06/02/16 at 08:30 Miscellaneous Information 1 ea NOTE XX ; Start 06/02/16 at 09:30 Glucose (Glutose) 15 gm Q15M PRN PO DECREASED GLUCOSE; Start 06/02/16 at 09:30 Glucose (Glutose) 22.5 gm Q15M PRN PO DECREASED GLUCOSE; Start 06/02/16 at 09: 30 Dextrose (D50w Syringe) 25 ml Q15M PRN IV DECREASED GLUCOSE; Start 06/02/16 at 09:30 Dextrose (D50w Syringe) 50 ml Q15M PRN IV DECREASED GLUCOSE; Start 06/02/16 at 09:30 Glucagon (Glucagen) 1 mg Q15M PRN IM DECREASED GLUCOSE; Start 06/02/16 at 09:30 Glucose (Glutose) 15 gm Q15M PRN BUCCAL DECREASED GLUCOSE; Start 06/02/16 at 09 :30 Diagnostic Test (Pha) (Accucheck) 1 ea 02 XX ; Start 06/03/16 at 02:00 Levetiracetam (Keppra) 500 mg Q12 PO Last administered on 06/03/16 09:00; Admin Dose 500 MG; Start 06/02/16 at 21:00 Oseltamivir Phosphate (Tamiflu) 75 mg Q12 PO Last administered on 06/03/16 22: 37; Admin Dose 75 MG; Start 06/02/16 at 10:30; Stop 06/07/16 at 10:29 Allopurinol (Zyloprim) 100 mg DAILY GTB Last administered on 06/03/16 08:39; Admin Dose 100 MG; Start 06/03/16 at 09:00 Amlodipine Besylate (Norvasc) 5 mg DAILY GTB Last administered on 06/03/16 09: 26; Admin Dose 5 MG; Start 06/03/16 at 09:00 Levetiracetam (Keppra) 500 mg BID GTB Last administered on 06/03/16 22:39; Admin Dose 500 MG; Start 06/03/16 at 09:00 Magnesium Oxide (Mag-Ox 400) 400 mg BID GTB Last administered on 06/03/16 22: 38; Admin Dose 400 MG; Start 06/03/16 at 09:00 Spironolactone (Aldactone) 25 mg DAILY GTB Last administered on 06/03/16 08:40 ; Admin Dose 25 MG; Start 06/03/16 at 09:00 Cholecalciferol (Vitamin D) 2,000 unit DAILY GTB Last administered on 08:39; Admin Dose 2,000 UNIT; Start 06/03/16 at 09:00 Lactobacillus Acidophilus/ Rhamnosus (Culturelle) 1 cap DAILY GTB Last administered on 06/03/16 09:26; Admin Dose 1 CAP; Start 06/03/16 at 09:00 Multivitamins (Thera-Plus) 5 ml DAILY GTB Last administered on 06/03/16 08:39 ; Admin Dose 5 ML; Start 06/03/16 at 09:00 Clonidine (Catapres) 0.1 mg Q4H PRN GTB SBP Greater than 150; Start 06/03/16 at 08:30 MACIEJ VIDES MD Jun 04, 2016 08:39
[2016-06-04] MEDS: LEVETIRACETAM 500 MG TAB GTB SCH ×2 (09:00→20:58)
[2016-06-04] MEDS: LEVETIRACETAM 500 MG TAB PO SCH (09:03)
[2016-06-04] MEDS: MULTIVITAMINS 5 ML CUP GTB SCH (09:03)
[2016-06-04] MEDS: SPIRONOLACTONE 25 MG TAB GTB SCH (09:03)
[2016-06-04] MEDS: ALLOPURINOL 100 MG TAB GTB SCH (09:03)
[2016-06-04] MEDS: CHOLECALCIFEROL 1,000 UNIT TAB GTB SCH (09:04)
[2016-06-04] MEDS: AMLODIPINE 5 MG TAB GTB SCH (09:04)
[2016-06-04] MEDS: LACTOBACILLUS RHAMNOSUS CAP GTB SCH (09:05)
[2016-06-04] MEDS: ACETAMINOPHEN 325 MG TAB PO PRN ×2 (09:05→23:53)
[2016-06-04] MEDS: MAGNESIUM OXIDE 400 MG TAB GTB SCH ×2 (09:06→20:59)
[2016-06-04] MEDS: INSULIN ASPART [NOVOLOG] 3 ML PEN SC SCH ×4 (09:09→21:00)
[2016-06-04] MEDS: HEPARIN 5,000 UNIT/0.5 ML SYG SC SCH ×2 (09:10→21:13)
[2016-06-04] MEDS: OSELTAMIVIR 75 MG CAP PO SCH ×2 (09:21→20:58)
[2016-06-04] MEDS: metFORMIN 500 MG TAB GTB SCH ×2 (09:22→17:10)
[2016-06-04] MEDS: GUAIFENESIN/DM 5ML CUP PEG PRN ×2 (09:27→23:56)
--- NOTE | 2016-06-04 09:56 | CONS ---
Date/Time of Note Date/Time of Note DATE: 06/04/16 TIME: 09:47 Assessment/Plan Assessment/Plan Chief Complaint/Hosp Course 1) Influenza B with hx of vomiting and current lung infiltrates continue with ceftriaxone/flagyl/tamiflu d/c azithro and start doxy to cover atypicals and MRSA s.aureus is the most common bacteria post flu check procalcitonin in a.m. send nasal for MRSA 2) hx of NHL Problems: Consultation Date/Type/Reason Admit Date/Time 06/02/2016 0900 Date of Consultation: Jun 04, 2016 Type of Consultation: ID Hx of Present Illness pt states he has had a cough for 3 weeks but it got worse and he got more SOB He also states he had some vomiting before he was admitted no current N, V, D his cough is non productive no dysuria, sore throat, CP, abd pain, joint pains Respiratory: cough Cardiovascular: no complaints Gastrointestinal: other Genitourinary: no complaints Musculoskeletal: no complaints Neurologic: other Psychological: confusion Past Medical History gout, HTN, DM, hyperlipidemia, spinal stenosis, NHL, Past Surgical History appy, laminectomy, prostatectomy, roderick craniotomies Past Surgical Hx: appendectomy, other Social History Alcohol Use: none Smoking Status: Never smoker Drug Use: none Exam/Review of Systems Vital Signs Vitals Vital Signs Date Time Temp Pulse Resp B/P Pulse Ox O2 Delivery O2 Flow Rate FiO2 06/04/16 08:16 101 06/04/16 07:42 100.4 17 134/71 94 06/04/16 05:25 Nasal Cannula 3.0 06/03/16 05:28 37 Intake and Output 06/03/16 06/03/16 06/04/16 15:00 23:00 07:00 Intake Total 755 ml 660 ml Output Total 1000 ml 950 ml Balance -245 ml -290 ml Exam Constitutional: alert, oriented Head: normocephalic Eyes: nl conjunctiva ENMT: other (dry mucous membranes) Respiratory: other (coarse rhonchi on right) Cardiovascular: regular rate and rhythm Gastrointestinal: non-tender, other (g tube site is clear), soft Musculoskeletal: other (no edema) Results Result Diagram: 06/04/16 0552 06/04/16 0555 Results 24 hrs Laboratory Tests Test 06/03/16 11:58 06/03/16 17:15 06/03/16 20:42 06/04/16 05:52 Bedside Glucose 156 158 155 Anion Gap 17 H Basophils # 0.0 Basophils % 0.2 Blood Urea Nitrogen 16 Calcium Level 9.0 Carbon Dioxide Level 19 L Chloride Level 107 Creatinine 0.63 Eosinophils # 0.0 Eosinophils % 0.2 Glucose Level 160 Hematocrit 31.5 L Hemoglobin 10.7 L Lymphocytes # 2.6 Lymphocytes % 15.5 Mean Corpuscular Hemoglobin 28.8 L Mean Corpuscular Hemoglobin Concent 34.0 Mean Corpuscular Volume 84.7 Mean Platelet Volume 9.1 Monocytes # 0.7 Monocytes % 3.8 Neutrophils # 13.3 H Neutrophils % 78.6 H Nucleated Red Blood Cells # 0.0 Nucleated Red Blood Cells % 0.0 Platelet Count 226 Potassium Level 3.7 Red Blood Count 3.72 L Red Cell Distribution Width 14.6 H Sodium Level 139 White Blood Count 16.9 H Test 06/04/16 05:55 06/04/16 08:04 Alanine Aminotransferase (ALT/SGPT) 26 Albumin 3.2 L Albumin/Globulin Ratio 0.80 Alkaline Phosphatase 95 Anion Gap 17 H Aspartate Amino Transf (AST/SGOT) 25 Blood Urea Nitrogen 16 Calcium Level 8.8 Carbon Dioxide Level 19 L Chloride Level 107 Creatinine 0.66 Direct Bilirubin 0.00 Globulin 4.00 H Glucose Level 166 Indirect Bilirubin 0.4 Magnesium Level 1.8 Phosphorus Level 1.0 L Potassium Level 3.6 Sodium Level 139 Total Bilirubin 0.4 Total Protein 7.2 Bedside Glucose 203 Medications Medications Current Medications Ondansetron HCl (Zofran Inj) 4 mg Q6H PRN IV NAUSEA AND/OR VOMITING; Start at 08:00 Acetaminophen (Tylenol Tab) 650 mg Q6H PRN PO PAIN LEVEL 1-3 OR FEVER Last administered on 06/04/16 09:05; Admin Dose 650 MG; Start 06/02/16 at 08:00 Bisacodyl (Dulcolax) 5 mg DAILY PRN PO CONSTIPATION; Start 06/02/16 at 08:00 Heparin Sodium (Porcine) 5000 unit 5,000 unit Q12 SC Last administered on 09:10; Admin Dose 5,000 UNIT; Start 06/02/16 at 09:00 Ceftriaxone Sodium 50 ml @ 100 mls/hr Q24H IVPB Last administered on 05:38; Admin Dose 100 MLS/HR; Start 06/03/16 at 05:00 Azithromycin 250 ml @ 250 mls/hr Q24H IV Last administered on 06/04/16 05:38 ; Admin Dose 250 MLS/HR; Start 06/03/16 at 06:00 Metronidazole (Flagyl 500 Mg (Pmx)) 100 ml @ 100 mls/hr Q8 IVPB Last administered on 06/04/16 05:38; Admin Dose 100 MLS/HR; Start 06/02/16 at 08:30 Miscellaneous Information 1 ea NOTE XX ; Start 06/02/16 at 09:30 Glucose (Glutose) 15 gm Q15M PRN PO DECREASED GLUCOSE; Start 06/02/16 at 09:30 Glucose (Glutose) 22.5 gm Q15M PRN PO DECREASED GLUCOSE; Start 06/02/16 at 09: 30 Dextrose (D50w Syringe) 25 ml Q15M PRN IV DECREASED GLUCOSE; Start 06/02/16 at 09:30 Dextrose (D50w Syringe) 50 ml Q15M PRN IV DECREASED GLUCOSE; Start 06/02/16 at 09:30 Glucagon (Glucagen) 1 mg Q15M PRN IM DECREASED GLUCOSE; Start 06/02/16 at 09:30 Glucose (Glutose) 15 gm Q15M PRN BUCCAL DECREASED GLUCOSE; Start 06/02/16 at 09 :30 Diagnostic Test (Pha) (Accucheck) 1 ea 02 XX ; Start 06/03/16 at 02:00 Levetiracetam (Keppra) 500 mg Q12 PO Last administered on 06/04/16 09:03; Admin Dose 500 MG; Start 06/02/16 at 21:00 Oseltamivir Phosphate (Tamiflu) 75 mg Q12 PO Last administered on 06/04/16 09: 21; Admin Dose 75 MG; Start 06/02/16 at 10:30; Stop 06/07/16 at 10:29 Allopurinol (Zyloprim) 100 mg DAILY GTB Last administered on 06/04/16 09:03; Admin Dose 100 MG; Start 06/03/16 at 09:00 Amlodipine Besylate (Norvasc) 5 mg DAILY GTB Last administered on 06/04/16 09: 04; Admin Dose 5 MG; Start 06/03/16 at 09:00 Levetiracetam (Keppra) 500 mg BID GTB Last administered on 06/03/16 22:39; Admin Dose 500 MG; Start 06/03/16 at 09:00 Magnesium Oxide (Mag-Ox 400) 400 mg BID GTB Last administered on 06/04/16 09: 06; Admin Dose 400 MG; Start 06/03/16 at 09:00 Spironolactone (Aldactone) 25 mg DAILY GTB Last administered on 06/04/16 09:03 ; Admin Dose 25 MG; Start 06/03/16 at 09:00 Cholecalciferol (Vitamin D) 2,000 unit DAILY GTB Last administered on 09:04; Admin Dose 2,000 UNIT; Start 06/03/16 at 09:00 Lactobacillus Acidophilus/ Rhamnosus (Culturelle) 1 cap DAILY GTB Last administered on 06/04/16 09:05; Admin Dose 1 CAP; Start 06/03/16 at 09:00 Multivitamins (Thera-Plus) 5 ml DAILY GTB Last administered on 06/04/16 09:03 ; Admin Dose 5 ML; Start 06/03/16 at 09:00 Clonidine (Catapres) 0.1 mg Q4H PRN GTB SBP Greater than 150; Start 06/03/16 at 08:30 Insulin Glargine (Lantus) 10 unit DAILY@20 SC ; Start 06/04/16 at 20:00 Guaifenesin/ Dextromethorphan (Robitussin Dm Liquid Cup) 5 ml Q4H PRN PEG COUGH Last administered on 06/04/16 09:27; Admin Dose 5 ML; Start 06/04/16 at 09:30 CECILIA NGO MD Jun 04, 2016 09:56
[2016-06-04] MEDS: DOXYCYCLINE 100 MG TAB GTB SCH ×2 (10:31→20:58)
[2016-06-04] MEDS: INSULIN GLARGINE [LANtus] 3 ML PEN SC SCH (21:12)
[2016-06-05] VITALS (13 sets, daily range): BP systolic 101–138; BP diastolic 60–77; PULSE 88–99; RESP 16–20
[2016-06-05] MEDS: ACCUCHECK AT 2AM (Patients on SS coverage) XX SCH (02:00)
[2016-06-05] MEDS: ALBUTEROL 0.5% (NEB) 2.5 MG/0.5 ML AMP NEB SCH ×6 (02:11→20:50)
[2016-06-05] MEDS: IPRATROPIUM (NEB) 0.5 MG/2.5 ML AMP NEB SCH ×6 (02:12→20:50)
[2016-06-05] MEDS: CEFTRIAXONE 1 GM/50 ML (PMX) 50 ML IVPB SCH (04:05)
[2016-06-05] MEDS: metroNIDAZOLE 500 MG/NS (PMX) 100 ML IVPB SCH ×3 (05:24→21:22)
[2016-06-05 06:09] LABS: ADD SCAN DIFF NO
[2016-06-05 06:13] LABS: BASOPHILS % 0.2 % (0.0-2.0); EOSINOPHILS # 0.2 10^3/ul (0.0-0.5); EOSINOPHILS % 1.6 % (0.0-7.0); HEMATOCRIT 31.2 % (42.0-52.0); HEMOGLOBIN 10.7 g/dl (14.0-18.0); LYMPHOCYTES # 1.7 10^3/ul (0.8-2.9); LYMPHOCYTES % 13.6 % (15.0-51.0); MEAN CORPUSCULAR HEMOGLOBIN 28.9 pg (29.0-33.0); MEAN CORPUSCULAR HGB CONC 34.3 g/dl (32.0-37.0); MEAN CORPUSCULAR VOLUME 84.3 fl (82.0-101.0); MEAN PLATELET VOLUME 9.4 fl (7.4-10.4); MONOCYTE # 0.6 10^3/ul (0.3-0.9); MONOCYTES % 5.2 % (0.0-11.0); NEUTROPHIL # 9.8 10^3/ul (1.6-7.5); NEUTROPHILS % 78.9 % (39.0-77.0); PLATELET COUNT 216 10^3/UL (140-415); RED CELL DISTRIBUTION WIDTH 14.4 % (11.5-14.5); WHITE BLOOD COUNT 12.4 10^3/ul (4.8-10.8)
[2016-06-05 06:43] LABS: ALBUMIN 2.8 g/dl (3.3-4.9)
[2016-06-05 06:44] LABS: POTASSIUM 3.4 mmol/L (3.5-5.1)
[2016-06-05 06:46] LABS: ALBUMIN/GLOBULIN RATIO 0.75; CREATININE 0.63 mg/dl (0.61-1.24); TOTAL PROTEIN 6.5 g/dl (6.1-8.1)
[2016-06-05 06:47] LABS: CALCIUM 8.6 mg/dl (8.4-10.2)
[2016-06-05] MEDS ORDERED: POTASSIUM CHLORIDE 20 MEQ POWDER FOR ORAL SOLN GTB ONE (08:00)
--- NOTE | 2016-06-05 08:08 | CONS ---
Date/Time of Note Date/Time of Note DATE: 06/05/16 TIME: 08:04 Assessment/Plan Assessment/Plan Chief Complaint/Hosp Course 1) Influenza B with hx of vomiting and current lung infiltrates continue with ceftriaxone/flagyl/tamiflu d/c azithro and start doxy to cover atypicals and MRSA s.aureus is the most common bacteria post flu check procalcitonin in a.m. send nasal for MRSA 06/05 - continue with ceftriaxone/flagyl/tamiflu/doxy when wbc normalizes can change to po doxy/augmentin/tamiflu (via g-tube) 2) hx of NHL Problems: Consultation Date/Type/Reason Admit Date/Time Jun 02, 2016 at 07:46 Initial Consult Date 06/04/16 Type of Consultation: ID 24 HR Interval Summary Free Text/Dictation pt states breathing is better, cough of whitish phlegm is present no N, V, D Exam/Review of Systems Vital Signs Vitals Vital Signs Date Time Temp Pulse Resp B/P Pulse Ox O2 Delivery O2 Flow Rate FiO2 06/05/16 08:02 90 06/05/16 07:07 99.2 101/61 96 06/05/16 05:07 18 Nasal Cannula 3.0 06/03/16 05:28 37 Intake and Output 06/04/16 06/04/16 06/05/16 15:00 23:00 07:00 Intake Total 730 ml 810 ml Output Total 900 ml 500 ml Balance -170 ml 310 ml Exam Constitutional: alert Head: normocephalic ENMT: other (yellow-white secretions on roof of mouth and around tongue, no thrush) Respiratory: other (crackles at R base) Cardiovascular: regular rate and rhythm Gastrointestinal: non-tender, soft Musculoskeletal: nl extremities to inspection Results Result Diagram: 06/05/16 0555 06/05/16 0555 Results 24 hrs Laboratory Tests Test 06/04/16 11:53 06/04/16 16:18 06/04/16 21:07 06/05/16 05:55 Bedside Glucose 181 146 163 Alanine Aminotransferase (ALT/SGPT) 32 Albumin 2.8 L Albumin/Globulin Ratio 0.75 Alkaline Phosphatase 81 Anion Gap 17 H Aspartate Amino Transf (AST/SGOT) 16 Basophils # 0.0 Basophils % 0.2 Blood Urea Nitrogen 20 Calcium Level 8.6 Carbon Dioxide Level 20 L Chloride Level 104 Creatinine 0.63 Direct Bilirubin 0.00 Eosinophils # 0.2 Eosinophils % 1.6 Globulin 3.70 H Glucose Level 169 Hematocrit 31.2 L Hemoglobin 10.7 L Indirect Bilirubin 0.0 Lymphocytes # 1.7 Lymphocytes % 13.6 L Mean Corpuscular Hemoglobin 28.9 L Mean Corpuscular Hemoglobin Concent 34.3 Mean Corpuscular Volume 84.3 Mean Platelet Volume 9.4 Monocytes # 0.6 Monocytes % 5.2 Neutrophils # 9.8 H Neutrophils % 78.9 H Nucleated Red Blood Cells # 0.0 Nucleated Red Blood Cells % 0.0 Platelet Count 216 Potassium Level 3.4 L Red Blood Count 3.70 L Red Cell Distribution Width 14.4 Sodium Level 138 Total Bilirubin 0.0 L Total Protein 6.5 White Blood Count 12.4 #H Test 06/05/16 07:32 Bedside Glucose 178 Medications Medications Current Medications Ondansetron HCl (Zofran Inj) 4 mg Q6H PRN IV NAUSEA AND/OR VOMITING; Start at 08:00 Acetaminophen (Tylenol Tab) 650 mg Q6H PRN PO PAIN LEVEL 1-3 OR FEVER Last administered on 06/04/16 23:53; Admin Dose 650 MG; Start 06/02/16 at 08:00 Bisacodyl (Dulcolax) 5 mg DAILY PRN PO CONSTIPATION; Start 06/02/16 at 08:00 Heparin Sodium (Porcine) 5000 unit 5,000 unit Q12 SC Last administered on 21:13; Admin Dose 5,000 UNIT; Start 06/02/16 at 09:00 Ceftriaxone Sodium 50 ml @ 100 mls/hr Q24H IVPB Last administered on 06/05/16 04:05; Admin Dose 100 MLS/HR; Start 06/03/16 at 05:00 Metronidazole (Flagyl 500 Mg (Pmx)) 100 ml @ 100 mls/hr Q8 IVPB Last administered on 06/05/16 05:24; Admin Dose 100 MLS/HR; Start 06/02/16 at 08:30 Miscellaneous Information 1 ea NOTE XX ; Start 06/02/16 at 09:30 Glucose (Glutose) 15 gm Q15M PRN PO DECREASED GLUCOSE; Start 06/02/16 at 09:30 Glucose (Glutose) 22.5 gm Q15M PRN PO DECREASED GLUCOSE; Start 06/02/16 at 09: 30 Dextrose (D50w Syringe) 25 ml Q15M PRN IV DECREASED GLUCOSE; Start 06/02/16 at 09:30 Dextrose (D50w Syringe) 50 ml Q15M PRN IV DECREASED GLUCOSE; Start 06/02/16 at 09:30 Glucagon (Glucagen) 1 mg Q15M PRN IM DECREASED GLUCOSE; Start 06/02/16 at 09:30 Glucose (Glutose) 15 gm Q15M PRN BUCCAL DECREASED GLUCOSE; Start 06/02/16 at 09 :30 Diagnostic Test (Pha) (Accucheck) 1 ea 02 XX ; Start 06/03/16 at 02:00 Oseltamivir Phosphate (Tamiflu) 75 mg Q12 PO Last administered on 06/04/16 20: 58; Admin Dose 75 MG; Start 06/02/16 at 10:30; Stop 06/07/16 at 10:29 Allopurinol (Zyloprim) 100 mg DAILY GTB Last administered on 06/04/16 09:03; Admin Dose 100 MG; Start 06/03/16 at 09:00 Amlodipine Besylate (Norvasc) 5 mg DAILY GTB Last administered on 06/04/16 09: 04; Admin Dose 5 MG; Start 06/03/16 at 09:00 Levetiracetam (Keppra) 500 mg BID GTB Last administered on 06/04/16 20:58; Admin Dose 500 MG; Start 06/03/16 at 09:00 Magnesium Oxide (Mag-Ox 400) 400 mg BID GTB Last administered on 06/04/16 20: 59; Admin Dose 400 MG; Start 06/03/16 at 09:00 Spironolactone (Aldactone) 25 mg DAILY GTB Last administered on 06/04/16 09:03 ; Admin Dose 25 MG; Start 06/03/16 at 09:00 Cholecalciferol (Vitamin D) 2,000 unit DAILY GTB Last administered on 09:04; Admin Dose 2,000 UNIT; Start 06/03/16 at 09:00 Lactobacillus Acidophilus/ Rhamnosus (Culturelle) 1 cap DAILY GTB Last administered on 06/04/16 09:05; Admin Dose 1 CAP; Start 06/03/16 at 09:00 Multivitamins (Thera-Plus) 5 ml DAILY GTB Last administered on 06/04/16 09:03 ; Admin Dose 5 ML; Start 06/03/16 at 09:00 Clonidine (Catapres) 0.1 mg Q4H PRN GTB SBP Greater than 150; Start 06/03/16 at 08:30 Insulin Glargine (Lantus) 10 unit DAILY@20 SC Last administered on 06/04/16 21 :12; Admin Dose 10 UNIT; Start 06/04/16 at 20:00 Guaifenesin/ Dextromethorphan (Robitussin Dm Liquid Cup) 5 ml Q4H PRN PEG COUGH Last administered on 06/04/16 23:56; Admin Dose 5 ML; Start 06/04/16 at 09:30 Doxycycline Hyclate (Vibramycin) 100 mg BID GTB Last administered on 06/04/16 20:58; Admin Dose 100 MG; Start 06/04/16 at 10:00 CECILIA NGO MD Jun 05, 2016 08:08
--- NOTE | 2016-06-05 08:12 | PN ---
Date/Time of Note Date/Time of Note DATE: 06/05/16 TIME: 08:03 Assessment/Plan VTE Prophylaxis VTE Prophylaxis Intervention: SCD's Lines/Catheters IV Catheter Type (from Nrs): Peripheral IV Urinary Cath still in place: Yes Reason Cath still needed: urinary retention Assessment/Plan Chief Complaint/Hosp Course 1. R pneumonia , either aspiration or community acquired . He is positive for Influenza B and is on Tamiflu . He is being seen by ID . 2. h/o bilateral subdural hematomas s/p surgery 3. h/o non Hodgekins lymphoma 4. DM 5. HTN 6. h/o encephalitis / encephalopathy 1 year ago 7. diffuse weakness/debilitated 8. recent PET scan showed bilateral hydronephrosis , renal ultrasound done and only shows mild L hydronephrosis 9. dysphagia , speech therapy ordered .he has PEG for feeding , dietary consult , video swallowing study ordered Problems: Subjective 24 Hr Interval Summary Free Text/Dictation He is lethargic , but rouses easily to verbal stimuli stimuli . He has a cough and seems to have difficulty with swallowing . Respiratory: cough Cardiovascular: no complaints Genitourinary: no complaints Psychological: confusion Exam/Review of Systems Vital Signs Vitals Vital Signs Date Time Temp Pulse Resp B/P Pulse Ox O2 Delivery O2 Flow Rate FiO2 06/05/16 07:07 99.2 90 101/61 96 06/05/16 05:07 18 Nasal Cannula 3.0 06/03/16 05:28 37 Intake and Output 06/04/16 06/04/16 06/05/16 15:00 23:00 07:00 Intake Total 730 ml 810 ml Output Total 900 ml 500 ml Balance -170 ml 310 ml Exam Constitutional: frail Psych: confusion Respiratory: congested cough Cardiovascular: regular rate and rhythm Gastrointestinal: soft Musculoskeletal: muscle weakness Neurological: lethargic Results Result Diagram: 06/05/16 0555 06/05/16 0555 Results 24 hrs Laboratory Tests Test 06/04/16 08:04 06/04/16 11:53 06/04/16 16:18 06/04/16 21:07 Bedside Glucose 203 181 146 163 Test 06/05/16 05:55 06/05/16 07:32 Alanine Aminotransferase (ALT/SGPT) 32 Albumin 2.8 L Albumin/Globulin Ratio 0.75 Alkaline Phosphatase 81 Anion Gap 17 H Aspartate Amino Transf (AST/SGOT) 16 Basophils # 0.0 Basophils % 0.2 Blood Urea Nitrogen 20 Calcium Level 8.6 Carbon Dioxide Level 20 L Chloride Level 104 Creatinine 0.63 Direct Bilirubin 0.00 Eosinophils # 0.2 Eosinophils % 1.6 Globulin 3.70 H Glucose Level 169 Hematocrit 31.2 L Hemoglobin 10.7 L Indirect Bilirubin 0.0 Lymphocytes # 1.7 Lymphocytes % 13.6 L Mean Corpuscular Hemoglobin 28.9 L Mean Corpuscular Hemoglobin Concent 34.3 Mean Corpuscular Volume 84.3 Mean Platelet Volume 9.4 Monocytes # 0.6 Monocytes % 5.2 Neutrophils # 9.8 H Neutrophils % 78.9 H Nucleated Red Blood Cells # 0.0 Nucleated Red Blood Cells % 0.0 Platelet Count 216 Potassium Level 3.4 L Red Blood Count 3.70 L Red Cell Distribution Width 14.4 Sodium Level 138 Total Bilirubin 0.0 L Total Protein 6.5 White Blood Count 12.4 #H Bedside Glucose 178 Medications Medications Current Medications Ondansetron HCl (Zofran Inj) 4 mg Q6H PRN IV NAUSEA AND/OR VOMITING; Start at 08:00 Acetaminophen (Tylenol Tab) 650 mg Q6H PRN PO PAIN LEVEL 1-3 OR FEVER Last administered on 06/04/16 23:53; Admin Dose 650 MG; Start 06/02/16 at 08:00 Bisacodyl (Dulcolax) 5 mg DAILY PRN PO CONSTIPATION; Start 06/02/16 at 08:00 Heparin Sodium (Porcine) 5000 unit 5,000 unit Q12 SC Last administered on 21:13; Admin Dose 5,000 UNIT; Start 06/02/16 at 09:00 Ceftriaxone Sodium 50 ml @ 100 mls/hr Q24H IVPB Last administered on 06/05/16 04:05; Admin Dose 100 MLS/HR; Start 06/03/16 at 05:00 Metronidazole (Flagyl 500 Mg (Pmx)) 100 ml @ 100 mls/hr Q8 IVPB Last administered on 06/05/16 05:24; Admin Dose 100 MLS/HR; Start 06/02/16 at 08:30 Miscellaneous Information 1 ea NOTE XX ; Start 06/02/16 at 09:30 Glucose (Glutose) 15 gm Q15M PRN PO DECREASED GLUCOSE; Start 06/02/16 at 09:30 Glucose (Glutose) 22.5 gm Q15M PRN PO DECREASED GLUCOSE; Start 06/02/16 at 09: 30 Dextrose (D50w Syringe) 25 ml Q15M PRN IV DECREASED GLUCOSE; Start 06/02/16 at 09:30 Dextrose (D50w Syringe) 50 ml Q15M PRN IV DECREASED GLUCOSE; Start 06/02/16 at 09:30 Glucagon (Glucagen) 1 mg Q15M PRN IM DECREASED GLUCOSE; Start 06/02/16 at 09:30 Glucose (Glutose) 15 gm Q15M PRN BUCCAL DECREASED GLUCOSE; Start 06/02/16 at 09 :30 Diagnostic Test (Pha) (Accucheck) ea XX ; Start 06/03/16 at 02:00 Oseltamivir Phosphate (Tamiflu) 75 mg Q12 PO Last administered on 06/04/16 20: 58; Admin Dose 75 MG; Start 06/02/16 at 10:30; Stop 06/07/16 at 10:29 Allopurinol (Zyloprim) 100 mg DAILY GTB Last administered on 06/04/16 09:03; Admin Dose 100 MG; Start 06/03/16 at 09:00 Amlodipine Besylate (Norvasc) 5 mg DAILY GTB Last administered on 06/04/16 09: 04; Admin Dose 5 MG; Start 06/03/16 at 09:00 Levetiracetam (Keppra) 500 mg BID GTB Last administered on 06/04/16 20:58; Admin Dose 500 MG; Start 06/03/16 at 09:00 Magnesium Oxide (Mag-Ox 400) 400 mg BID GTB Last administered on 06/04/16 20: 59; Admin Dose 400 MG; Start 06/03/16 at 09:00 Spironolactone (Aldactone) 25 mg DAILY GTB Last administered on 06/04/16 09:03 ; Admin Dose 25 MG; Start 06/03/16 at 09:00 Cholecalciferol (Vitamin D) 2,000 unit DAILY GTB Last administered on 09:04; Admin Dose 2,000 UNIT; Start 06/03/16 at 09:00 Lactobacillus Acidophilus/ Rhamnosus (Culturelle) 1 cap DAILY GTB Last administered on 06/04/16 09:05; Admin Dose 1 CAP; Start 06/03/16 at 09:00 Multivitamins (Thera-Plus) 5 ml DAILY GTB Last administered on 06/04/16 09:03 ; Admin Dose 5 ML; Start 06/03/16 at 09:00 Clonidine (Catapres) 0.1 mg Q4H PRN GTB SBP Greater than 150; Start 06/03/16 at 08:30 Insulin Glargine (Lantus) 10 unit DAILY@20 SC Last administered on 06/04/16 21 :12; Admin Dose 10 UNIT; Start 06/04/16 at 20:00 Guaifenesin/ Dextromethorphan (Robitussin Dm Liquid Cup) 5 ml Q4H PRN PEG COUGH Last administered on 06/04/16 23:56; Admin Dose 5 ML; Start 06/04/16 at 09:30 Doxycycline Hyclate (Vibramycin) 100 mg BID GTB Last administered on 06/04/16 20:58; Admin Dose 100 MG; Start 06/04/16 at 10:00 AMCIEJ VIDES MD Jun 05, 2016 08:12
[2016-06-05] MEDS: LEVETIRACETAM 500 MG TAB GTB SCH ×2 (09:26→21:09)
[2016-06-05] MEDS: MULTIVITAMINS 5 ML CUP GTB SCH (09:26)
[2016-06-05] MEDS: OSELTAMIVIR 75 MG CAP PO SCH ×2 (09:26→21:09)
[2016-06-05] MEDS: ALLOPURINOL 100 MG TAB GTB SCH (09:26)
[2016-06-05] MEDS: MAGNESIUM OXIDE 400 MG TAB GTB SCH ×2 (09:26→21:09)
[2016-06-05] MEDS: SPIRONOLACTONE 25 MG TAB GTB SCH (09:26)
[2016-06-05] MEDS: DOXYCYCLINE 100 MG TAB GTB SCH ×2 (09:26→21:09)
[2016-06-05] MEDS: CHOLECALCIFEROL 1,000 UNIT TAB GTB SCH (09:26)
[2016-06-05] MEDS: AMLODIPINE 5 MG TAB GTB SCH (09:27)
[2016-06-05] MEDS: LACTOBACILLUS RHAMNOSUS CAP GTB SCH (09:27)
[2016-06-05] MEDS: HEPARIN 5,000 UNIT/0.5 ML SYG SC SCH ×2 (09:28→21:21)
[2016-06-05] MEDS: metFORMIN 500 MG TAB GTB SCH ×2 (09:32→18:05)
[2016-06-05] MEDS: INSULIN ASPART [NOVOLOG] 3 ML PEN SC SCH ×4 (09:38→21:00)
--- NOTE | 2016-06-05 13:07 | RADRPT ---
PROCEDURE: CT Brain without contrast. CLINICAL INDICATION: Neurologic deficit TECHNIQUE: A CT of the brain was performed on multidetector high-resolution CT scanner utilizing a xial sections from the skull base through the vertex without contrast. One or more of the following dose reduction techniques were used: Automated exposure control, Adjustment of the mA and/or kV acc ording to patient size, and/or use of iterative reconstruction technique. DOSE: CTDI = 38 mGy and the DLP = 634 mGy-cm. COMPARISON: Correlation to Brain MRI 09/27/2015 FINDINGS: Old right frontal craniotomy changes. Right cerebral convexity subdural hematoma measures up to 7 mm. This is decreased size since 2015. Left cerebral convexity subdural hematoma measures up to 5 mm posteriorly which is slightly decrease d from prior. Focal prominence of the left frontal extra-axial space measuring up to 14 mm is uncha nged. No definite acute hemorrhage identified. Patchy hypoattenuation of the cerebral white matter is most consistent with chronic microvascular ischemic changes. Stable large ventricles with moderate volume loss. Atherosclerotic calcifications of the cavernous s egments of the internal carotid arteries are seen. No significant opacification of the visualized paranasal sinuses or mastoids. IMPRESSION: Mild interval decrease in size of the bilateral cerebral convexity subdural hematomas when correlate d to 09/27/2015. No definite acute hemorrhage. Chronic microvascular disease and moderate volume loss. RPTAT: AA .Jairo Alvarado MD, MD Date Time Electronically viewed and signed by .Jairo Alvarado MD, MD on 06/05/2016 13:06 .T/
[2016-06-05] MEDS ORDERED: BARIUM SULFATE 135 ML (E-Z HD) PO ONE (13:23)
[2016-06-05] MEDS: INSULIN GLARGINE [LANtus] 3 ML PEN SC SCH (21:21)
[2016-06-06] VITALS (11 sets, daily range): BP systolic 115–140; BP diastolic 57–70; PULSE 83–96; RESP 16–20
[2016-06-06] MEDS: IPRATROPIUM (NEB) 0.5 MG/2.5 ML AMP NEB SCH ×6 (00:44→20:07)
[2016-06-06] MEDS: ALBUTEROL 0.5% (NEB) 2.5 MG/0.5 ML AMP NEB SCH ×6 (00:44→20:07)
[2016-06-06] MEDS: ACCUCHECK AT 2AM (Patients on SS coverage) XX SCH (02:00)
[2016-06-06] MEDS: CEFTRIAXONE 1 GM/50 ML (PMX) 50 ML IVPB SCH (04:45)
[2016-06-06] MEDS: metroNIDAZOLE 500 MG/NS (PMX) 100 ML IVPB SCH ×3 (05:29→21:56)
--- NOTE | 2016-06-06 06:51 | CONS ---
Date/Time of Note Date/Time of Note DATE: 06/06/16 TIME: 06:48 Assessment/Plan Assessment/Plan Chief Complaint/Hosp Course 1) Influenza B with hx of vomiting and current lung infiltrates continue with ceftriaxone/flagyl/tamiflu d/c azithro and start doxy to cover atypicals and MRSA s.aureus is the most common bacteria post flu check procalcitonin in a.m. send nasal for MRSA 06/05 - continue with ceftriaxone/flagyl/tamiflu/doxy when wbc normalizes can change to po doxy/augmentin/tamiflu (via g-tube) 06/06 - a.m. labs are pending but if wbc is normal will change ceftriaxone/flagyl to augmentin via g-tube nasal was neg for MRSA awaits swallow eval CT of brain showed somewhat smaller SDH, no new issues 2) hx of NHL Problems: Consultation Date/Type/Reason Admit Date/Time Jun 02, 2016 at 07:46 Initial Consult Date 06/04/16 Type of Consultation: ID 24 HR Interval Summary Free Text/Dictation cough is lightening up according to patient no SOB, N, V, D pt states there was no swallow eval or PT yesterday Exam/Review of Systems Vital Signs Vitals Vital Signs Date Time Temp Pulse Resp B/P Pulse Ox O2 Delivery O2 Flow Rate FiO2 06/06/16 04:48 89 20 98 Nasal Cannula 3.0 06/06/16 03:43 98.0 140/63 06/03/16 05:28 37 Intake and Output 06/05/16 06/05/16 06/06/16 15:00 23:00 07:00 Intake Total 660 ml Output Total 700 ml Balance -40 ml Exam Constitutional: alert (pt is slow to answer questions) Head: normocephalic Eyes: nl conjunctiva ENMT: mucosa pink and moist Respiratory: clear to auscultation Cardiovascular: regular rate and rhythm Gastrointestinal: non-tender, soft Results Result Diagram: 06/05/16 0555 06/05/16 0555 Results 24 hrs Laboratory Tests Test 06/05/16 07:32 06/05/16 11:32 06/05/16 18:01 06/05/16 21:11 Bedside Glucose 178 153 172 157 Medications Medications Current Medications Ondansetron HCl (Zofran Inj) 4 mg Q6H PRN IV NAUSEA AND/OR VOMITING; Start at 08:00 Acetaminophen (Tylenol Tab) 650 mg Q6H PRN PO PAIN LEVEL 1-3 OR FEVER Last administered on 06/04/16 23:53; Admin Dose 650 MG; Start 06/02/16 at 08:00 Bisacodyl (Dulcolax) 5 mg DAILY PRN PO CONSTIPATION; Start 06/02/16 at 08:00 Heparin Sodium (Porcine) 5000 unit 5,000 unit Q12 SC Last administered on 21:21; Admin Dose 5,000 UNIT; Start 06/02/16 at 09:00 Ceftriaxone Sodium 50 ml @ 100 mls/hr Q24H IVPB Last administered on 06/06/16 04:45; Admin Dose 100 MLS/HR; Start 06/03/16 at 05:00 Metronidazole (Flagyl 500 Mg (Pmx)) 100 ml @ 100 mls/hr Q8 IVPB Last administered on 06/06/16 05:29; Admin Dose 100 MLS/HR; Start 06/02/16 at 08:30 Miscellaneous Information 1 ea NOTE XX ; Start 06/02/16 at 09:30 Glucose (Glutose) 15 gm Q15M PRN PO DECREASED GLUCOSE; Start 06/02/16 at 09:30 Glucose (Glutose) 22.5 gm Q15M PRN PO DECREASED GLUCOSE; Start 06/02/16 at 09: 30 Dextrose (D50w Syringe) 25 ml Q15M PRN IV DECREASED GLUCOSE; Start 06/02/16 at 09:30 Dextrose (D50w Syringe) 50 ml Q15M PRN IV DECREASED GLUCOSE; Start 06/02/16 at 09:30 Glucagon (Glucagen) 1 mg Q15M PRN IM DECREASED GLUCOSE; Start 06/02/16 at 09:30 Glucose (Glutose) 15 gm Q15M PRN BUCCAL DECREASED GLUCOSE; Start 06/02/16 at 09 :30 Diagnostic Test (Pha) (Accucheck) 1 ea 02 XX ; Start 06/03/16 at 02:00 Oseltamivir Phosphate (Tamiflu) 75 mg Q12 PO Last administered on 06/05/16 21: 09; Admin Dose 75 MG; Start 06/02/16 at 10:30; Stop 06/07/16 at 10:29 Allopurinol (Zyloprim) 100 mg DAILY GTB Last administered on 06/05/16 09:26; Admin Dose 100 MG; Start 06/03/16 at 09:00 Amlodipine Besylate (Norvasc) 5 mg DAILY GTB Last administered on 06/05/16 09: 27; Admin Dose 5 MG; Start 06/03/16 at 09:00 Levetiracetam (Keppra) 500 mg BID GTB Last administered on 06/05/16 21:09; Admin Dose 500 MG; Start 06/03/16 at 09:00 Magnesium Oxide (Mag-Ox 400) 400 mg BID GTB Last administered on 06/05/16 21:09 ; Admin Dose 400 MG; Start 06/03/16 at 09:00 Spironolactone (Aldactone) 25 mg DAILY GTB Last administered on 06/05/16 09:26 ; Admin Dose 25 MG; Start 06/03/16 at 09:00 Cholecalciferol (Vitamin D) 2,000 unit DAILY GTB Last administered on 06/05/16 09:26; Admin Dose 2,000 UNIT; Start 06/03/16 at 09:00 Lactobacillus Acidophilus/ Rhamnosus (Culturelle) 1 cap DAILY GTB Last administered on 06/05/16 09:27; Admin Dose 1 CAP; Start 06/03/16 at 09:00 Multivitamins (Thera-Plus) 5 ml DAILY GTB Last administered on 06/05/16 09:26; Admin Dose 5 ML; Start 06/03/16 at 09:00 Clonidine (Catapres) 0.1 mg Q4H PRN GTB SBP Greater than 150; Start 06/03/16 at 08:30 Insulin Glargine (Lantus) 10 unit DAILY@20 SC Last administered on 06/05/16 21: 21; Admin Dose 10 UNIT; Start 06/04/16 at 20:00 Guaifenesin/ Dextromethorphan (Robitussin Dm Liquid Cup) 5 ml Q4H PRN PEG COUGH Last administered on 06/04/16 23:56; Admin Dose 5 ML; Start 06/04/16 at 09:30 Doxycycline Hyclate (Vibramycin) 100 mg BID GTB Last administered on 06/05/16 21:09; Admin Dose 100 MG; Start 06/04/16 at 10:00 CECILIA NGO MD Jun 06, 2016 06:51
[2016-06-06 06:57] LABS: ADD SCAN DIFF NO
[2016-06-06 07:02] LABS: BASOPHILS % 0.3 % (0.0-2.0); EOSINOPHILS # 0.2 10^3/ul (0.0-0.5); HEMATOCRIT 31.7 % (42.0-52.0); LYMPHOCYTES # 1.6 10^3/ul (0.8-2.9); MEAN CORPUSCULAR HEMOGLOBIN 29.1 pg (29.0-33.0); MEAN CORPUSCULAR HGB CONC 34.7 g/dl (32.0-37.0); MEAN CORPUSCULAR VOLUME 83.9 fl (82.0-101.0); MEAN PLATELET VOLUME 9.6 fl (7.4-10.4); MONOCYTES % 8.8 % (0.0-11.0); NEUTROPHIL # 8.2 10^3/ul (1.6-7.5); NEUTROPHILS % 73.6 % (39.0-77.0); PLATELET COUNT 247 10^3/UL (140-415); RED BLOOD COUNT 3.78 10^6/ul (4.70-6.10); RED CELL DISTRIBUTION WIDTH 14.4 % (11.5-14.5); WHITE BLOOD COUNT 11.2 10^3/ul (4.8-10.8)
[2016-06-06 07:03] LABS: ALBUMIN 2.9 g/dl (3.3-4.9)
[2016-06-06 07:04] LABS: POTASSIUM 3.6 mmol/L (3.5-5.1)
[2016-06-06 07:06] LABS: BILIRUBIN,INDIRECT 0.1 mg/dl (0-1.1); BILIRUBIN,TOTAL 0.1 mg/dl (0.2-1.3); CREATININE 0.62 mg/dl (0.61-1.24)
[2016-06-06 07:07] LABS: ALBUMIN/GLOBULIN RATIO 0.76; CALCIUM 8.4 mg/dl (8.4-10.2); MAGNESIUM 1.5 mg/dl (1.7-2.5); TOTAL PROTEIN 6.7 g/dl (6.1-8.1)
[2016-06-06] MEDS: SPIRONOLACTONE 25 MG TAB GTB SCH (08:39)
[2016-06-06] MEDS: LACTOBACILLUS RHAMNOSUS CAP GTB SCH (08:40)
[2016-06-06] MEDS: MAGNESIUM OXIDE 400 MG TAB GTB SCH ×2 (08:41→21:55)
[2016-06-06] MEDS: LEVETIRACETAM 500 MG TAB GTB SCH ×2 (08:41→21:55)
[2016-06-06] MEDS: AMLODIPINE 5 MG TAB GTB SCH (08:43)
[2016-06-06] MEDS: DOXYCYCLINE 100 MG TAB GTB SCH ×2 (08:44→21:55)
[2016-06-06] MEDS: MULTIVITAMINS 5 ML CUP GTB SCH (08:44)
[2016-06-06] MEDS: OSELTAMIVIR 75 MG CAP PO SCH ×2 (08:45→21:55)
[2016-06-06] MEDS: CHOLECALCIFEROL 1,000 UNIT TAB GTB SCH (08:45)
[2016-06-06] MEDS: ALLOPURINOL 100 MG TAB GTB SCH (08:45)
[2016-06-06] MEDS: HEPARIN 5,000 UNIT/0.5 ML SYG SC SCH ×2 (08:53→21:54)
[2016-06-06] MEDS: metFORMIN 500 MG TAB GTB SCH ×2 (08:54→17:59)
[2016-06-06] MEDS: INSULIN ASPART [NOVOLOG] 3 ML PEN SC SCH ×4 (08:55→21:00)
--- NOTE | 2016-06-06 09:51 | RADRPT ---
PROCEDURE: Video-fluoroscopy swallowing study. CLINICAL INDICATION: Dysphagia. TECHNIQUE: Fluoroscopic guided video swallowing study was done in conjunction with the speech ther apist. The study was confined to the oral, pharyngeal, and cervical phases of the swallowing mechani sm. 3.0 minutes of fluoroscopy time was used. COMPARISON: No prior study is available for comparison. FINDINGS: There is penetration with nectar-thick liquids with spoon and cup. The patient aspirates without co ugh reflex during swallowing the nectar-thick liquids by straw. The patient also aspirated during s wallowing of puree. IMPRESSION: 1. Abnormal study with silent aspiration during swallowing. 2. Please refer to the speech therapist's recommendations for future feedings. RPTAT: QQ .Brooks Mares MD, MD Date Time Electronically viewed and signed by .Brooks Mares MD, MD on 06/06/2016 09:51 .R/
[2016-06-06] MEDS ORDERED: MAGNESIUM SULFATE 2 GM/50 ML 50 ML IVPB ONE (10:00)
--- NOTE | 2016-06-06 10:08 | CONS ---
Date/Time of Note Date/Time of Note DATE: 06/06/16 TIME: 10:03 Assessment/Plan Assessment/Plan Chief Complaint/Hosp Course 1. R pneumonia , either aspiration or community acquired . He is positive for Influenza B and is on Tamiflu . He is being seen by ID .WBC is still elevated . 2. h/o bilateral subdural hematomas s/p surgery. CT yesterday shows slight decrease in subdural hematomas 3. h/o non Hodgekins lymphoma 4. DM 5. HTN 6. h/o encephalitis / encephalopathy 1 year ago 7. diffuse weakness/debilitated 8. recent PET scan showed bilateral hydronephrosis , renal ultrasound done and only shows mild L hydronephrosis 9. dysphagia , speech therapy ordered .he has PEG for feeding , dietary consult , video swallowing study yesterday shows aspiration . 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 Problems: Consultation Date/Type/Reason Admit Date/Time Jun 02, 2016 at 07:46 Initial Consult Date 06/04/16 Type of Consultation: ID 24 HR Interval Summary Free Text/Dictation He is awake and alert . His sons are in the room . Constitutional: no complaints Exam/Review of Systems Vital Signs Vitals Vital Signs Date Time Temp Pulse Resp B/P Pulse Ox O2 Delivery O2 Flow Rate FiO2 06/06/16 09:10 96 20 97 Nasal Cannula 06/06/16 09:10 2.0 06/06/16 07:13 98.5 118/69 06/03/16 05:28 37 Intake and Output 06/05/16 06/05/16 06/06/16 15:00 23:00 07:00 Intake Total 760 ml 710 ml Output Total 700 ml 750 ml Balance 60 ml -40 ml Exam Constitutional: alert Psych: no complaints Respiratory: clear to auscultation, diminished breath sounds Cardiovascular: regular rate and rhythm Gastrointestinal: soft Musculoskeletal: nl extremities to inspection Results Result Diagram: 06/06/16 0550 06/06/16 0550 Results 24 hrs Laboratory Tests Test 06/05/16 11:32 06/05/16 18:01 06/05/16 21:11 06/06/16 05:50 Bedside Glucose 153 172 157 Alanine Aminotransferase (ALT/SGPT) 28 Albumin 2.9 L Albumin/Globulin Ratio 0.76 Alkaline Phosphatase 85 Anion Gap 17 H Aspartate Amino Transf (AST/SGOT) 12 L Basophils # 0.0 Basophils % 0.3 Blood Urea Nitrogen 19 Calcium Level 8.4 Carbon Dioxide Level 20 L Chloride Level 102 Creatinine 0.62 Direct Bilirubin 0.00 Eosinophils # 0.2 Eosinophils % 2.0 Globulin 3.80 H Glucose Level 176 Hematocrit 31.7 L Hemoglobin 11.0 L Indirect Bilirubin 0.1 Lymphocytes # 1.6 Lymphocytes % 14.0 L Magnesium Level 1.5 L Mean Corpuscular Hemoglobin 29.1 Mean Corpuscular Hemoglobin Concent 34.7 Mean Corpuscular Volume 83.9 Mean Platelet Volume 9.6 Monocytes # 1.0 H Monocytes % 8.8 Neutrophils # 8.2 H Neutrophils % 73.6 Nucleated Red Blood Cells # 0.0 Nucleated Red Blood Cells % 0.0 Platelet Count 247 Potassium Level 3.6 Red Blood Count 3.78 L Red Cell Distribution Width 14.4 Sodium Level 135 Total Bilirubin 0.1 L Total Protein 6.7 White Blood Count 11.2 H Test 06/06/16 08:13 Bedside Glucose 188 Medications Medications Current Medications Ondansetron HCl (Zofran Inj) 4 mg Q6H PRN IV NAUSEA AND/OR VOMITING; Start at 08:00 Acetaminophen (Tylenol Tab) 650 mg Q6H PRN PO PAIN LEVEL 1-3 OR FEVER Last administered on 06/04/16 23:53; Admin Dose 650 MG; Start 06/02/16 at 08:00 Bisacodyl (Dulcolax) 5 mg DAILY PRN PO CONSTIPATION; Start 06/02/16 at 08:00 Heparin Sodium (Porcine) 5000 unit 5,000 unit Q12 SC Last administered on 08:53; Admin Dose 5,000 UNIT; Start 06/02/16 at 09:00 Ceftriaxone Sodium 50 ml @ 100 mls/hr Q24H IVPB Last administered on 06/06/16 04:45; Admin Dose 100 MLS/HR; Start 06/03/16 at 05:00 Metronidazole (Flagyl 500 Mg (Pmx)) 100 ml @ 100 mls/hr Q8 IVPB Last administered on 06/06/16 05:29; Admin Dose 100 MLS/HR; Start 06/02/16 at 08:30 Miscellaneous Information 1 ea NOTE XX ; Start 06/02/16 at 09:30 Glucose (Glutose) 15 gm Q15M PRN PO DECREASED GLUCOSE; Start 06/02/16 at 09:30 Glucose (Glutose) 22.5 gm Q15M PRN PO DECREASED GLUCOSE; Start 06/02/16 at 09: 30 Dextrose (D50w Syringe) 25 ml Q15M PRN IV DECREASED GLUCOSE; Start 06/02/16 at 09:30 Dextrose (D50w Syringe) 50 ml Q15M PRN IV DECREASED GLUCOSE; Start 06/02/16 at 09:30 Glucagon (Glucagen) 1 mg Q15M PRN IM DECREASED GLUCOSE; Start 06/02/16 at 09:30 Glucose (Glutose) 15 gm Q15M PRN BUCCAL DECREASED GLUCOSE; Start 06/02/16 at 09 :30 Diagnostic Test (Pha) (Accucheck) 1 ea 02 XX ; Start 06/03/16 at 02:00 Oseltamivir Phosphate (Tamiflu) 75 mg Q12 PO Last administered on 06/06/16 08: 45; Admin Dose 75 MG; Start 06/02/16 at 10:30; Stop 06/07/16 at 10:29 Allopurinol (Zyloprim) 100 mg DAILY GTB Last administered on 06/06/16 08:45; Admin Dose 100 MG; Start 06/03/16 at 09:00 Amlodipine Besylate (Norvasc) 5 mg DAILY GTB Last administered on 06/06/16 08: 43; Admin Dose 5 MG; Start 06/03/16 at 09:00 Levetiracetam (Keppra) 500 mg BID GTB Last administered on 06/06/16 08:41; Admin Dose 500 MG; Start 06/03/16 at 09:00 Magnesium Oxide (Mag-Ox 400) 400 mg BID GTB Last administered on 06/06/16 08:41 ; Admin Dose 400 MG; Start 06/03/16 at 09:00 Spironolactone (Aldactone) 25 mg DAILY GTB Last administered on 06/06/16 08:39 ; Admin Dose 25 MG; Start 06/03/16 at 09:00 Cholecalciferol (Vitamin D) 2,000 unit DAILY GTB Last administered on 06/06/16 08:45; Admin Dose 2,000 UNIT; Start 06/03/16 at 09:00 Lactobacillus Acidophilus/ Rhamnosus (Culturelle) 1 cap DAILY GTB Last administered on 06/06/16 08:40; Admin Dose 1 CAP; Start 06/03/16 at 09:00 Multivitamins (Thera-Plus) 5 ml DAILY GTB Last administered on 06/06/16 08:44; Admin Dose 5 ML; Start 06/03/16 at 09:00 Clonidine (Catapres) 0.1 mg Q4H PRN GTB SBP Greater than 150; Start 06/03/16 at 08:30 Insulin Glargine (Lantus) 10 unit DAILY@20 SC Last administered on 06/05/16 21: 21; Admin Dose 10 UNIT; Start 06/04/16 at 20:00 Guaifenesin/ Dextromethorphan (Robitussin Dm Liquid Cup) 5 ml Q4H PRN PEG COUGH Last administered on 06/04/16 23:56; Admin Dose 5 ML; Start 06/04/16 at 09:30 Doxycycline Hyclate (Vibramycin) 100 mg BID GTB Last administered on 06/06/16 08:44; Admin Dose 100 MG; Start 06/04/16 at 10:00 MACIEJ VIDES MD Jun 06, 2016 10:08
--- NOTE | 2016-06-06 15:57 | RADRPT ---
PROCEDURE: CHEST 1VW CLINICAL INDICATION: Pneumonia TECHNIQUE: Single frontal view of the chest was obtained COMPARISON: 06/03/2016 FINDINGS: The cardiac size is normal. Aortic vascular calcifications are demonstrated. There is no pulmonary vascular congestion. Stable patchy consolidation seen in the right lung. Mild degenerative changes of the visualized osseous structures are visualized. IMPRESSION: 1. Stable patchy consolidation seen in the right lung. 2. Atherosclerosis. RPTAT:PP .Raheel Patiño MD, MD Date Time Electronically viewed and signed by .Raheel Patiño MD, on 06/06/2016 15:51 .V/
[2016-06-06] MEDS: INSULIN GLARGINE [LANtus] 3 ML PEN SC SCH (21:53)
[2016-06-07] MEDS: IPRATROPIUM (NEB) 0.5 MG/2.5 ML AMP NEB SCH ×6 (01:20→20:24)
[2016-06-07] MEDS: ALBUTEROL 0.5% (NEB) 2.5 MG/0.5 ML AMP NEB SCH ×6 (01:20→20:24)
[2016-06-07] MEDS: ACCUCHECK AT 2AM (Patients on SS coverage) XX SCH (02:00)
[2016-06-07] MEDS: metroNIDAZOLE 500 MG/NS (PMX) 100 ML IVPB SCH (06:12)
[2016-06-07] MEDS: CEFTRIAXONE 1 GM/50 ML (PMX) 50 ML IVPB SCH (06:12)
[2016-06-07 07:57] LABS: ADD SCAN DIFF NO
[2016-06-07 07:59] LABS: BASOPHILS % 0.4 % (0.0-2.0); EOSINOPHILS # 0.4 10^3/ul (0.0-0.5); EOSINOPHILS % 3.8 % (0.0-7.0); HEMATOCRIT 32.6 % (42.0-52.0); LYMPHOCYTES # 1.7 10^3/ul (0.8-2.9); LYMPHOCYTES % 18.2 % (15.0-51.0); MEAN CORPUSCULAR HEMOGLOBIN 28.2 pg (29.0-33.0); MEAN CORPUSCULAR HGB CONC 33.7 g/dl (32.0-37.0); MEAN CORPUSCULAR VOLUME 83.6 fl (82.0-101.0); MEAN PLATELET VOLUME 9.2 fl (7.4-10.4); MONOCYTE # 0.9 10^3/ul (0.3-0.9); NEUTROPHIL # 5.9 10^3/ul (1.6-7.5); NEUTROPHILS % 64.3 % (39.0-77.0); PLATELET COUNT 257 10^3/UL (140-415); RED CELL DISTRIBUTION WIDTH 14.5 % (11.5-14.5); WHITE BLOOD COUNT 9.1 10^3/ul (4.8-10.8)
[2016-06-07 08:23] VITALS: BP 119/67; RESP 26
[2016-06-07] MEDS: OSELTAMIVIR 75 MG CAP PO SCH (08:41)
[2016-06-07] MEDS: SPIRONOLACTONE 25 MG TAB GTB SCH (08:42)
[2016-06-07] MEDS: LEVETIRACETAM 500 MG TAB GTB SCH ×2 (08:42→20:42)
[2016-06-07] MEDS: AMLODIPINE 5 MG TAB GTB SCH (08:42)
[2016-06-07] MEDS: MULTIVITAMINS 5 ML CUP GTB SCH (08:42)
[2016-06-07] MEDS: MAGNESIUM OXIDE 400 MG TAB GTB SCH ×2 (08:42→20:42)
[2016-06-07] MEDS: CHOLECALCIFEROL 1,000 UNIT TAB GTB SCH (08:42)
[2016-06-07] MEDS: ALLOPURINOL 100 MG TAB GTB SCH (08:42)
[2016-06-07] MEDS: metFORMIN 500 MG TAB GTB SCH ×2 (08:42→18:52)
[2016-06-07] MEDS: DOXYCYCLINE 100 MG TAB GTB SCH ×2 (08:42→20:42)
[2016-06-07 08:53] LABS: ALBUMIN 2.9 g/dl (3.3-4.9)
[2016-06-07 08:54] LABS: POTASSIUM 3.8 mmol/L (3.5-5.1)
[2016-06-07 08:56] LABS: ALBUMIN/GLOBULIN RATIO 0.87; CALCIUM 8.3 mg/dl (8.4-10.2); CREATININE 0.62 mg/dl (0.61-1.24); TOTAL PROTEIN 6.2 g/dl (6.1-8.1)
[2016-06-07] MEDS: INSULIN ASPART [NOVOLOG] 3 ML PEN SC SCH ×4 (09:17→20:42)
[2016-06-07] MEDS: HEPARIN 5,000 UNIT/0.5 ML SYG SC SCH ×2 (09:18→20:57)
--- NOTE | 2016-06-07 10:09 | CONS ---
Date/Time of Note Date/Time of Note DATE: 06/07/16 TIME: 10:04 Assessment/Plan Assessment/Plan Chief Complaint/Hosp Course 1) Influenza B with hx of vomiting and current lung infiltrates continue with ceftriaxone/flagyl/tamiflu d/c azithro and start doxy to cover atypicals and MRSA s.aureus is the most common bacteria post flu check procalcitonin in a.m. send nasal for MRSA 06/05 - continue with ceftriaxone/flagyl/tamiflu/doxy when wbc normalizes can change to po doxy/augmentin/tamiflu (via g-tube) 06/06 - a.m. labs are pending but if wbc is normal will change ceftriaxone/flagyl to augmentin via g-tube nasal was neg for MRSA awaits swallow eval CT of brain showed somewhat smaller SDH, no new issues 06/07 - normal wbc now, d/c ceftriaxone and flagyl start augmentin and continue with doxy thru 06/09/16 d/c tamiflu (completed his 5 day course) can d/c isolation on 06/09 2) hx of NHL Problems: Consultation Date/Type/Reason Admit Date/Time Jun 02, 2016 at 07:46 Initial Consult Date 06/04/16 Type of Consultation: ID [id number] HR Interval Summary Free Text/Dictation spoke to managed care liaison present no V, has very soft stools no SOB, but has cough Exam/Review of Systems Vital Signs Vitals Vital Signs Date Time Temp Pulse Resp B/P Pulse Ox O2 Delivery O2 Flow Rate FiO2 06/07/16 09:16 77 20 97 Nasal Cannula 2.0 06/07/16 08:23 98.0 119/67 Intake and Output 06/06/16 06/06/16 06/07/16 15:00 23:00 07:00 Intake Total 100 ml 150 ml Output Total 500 ml Balance 100 ml -350 ml Exam Constitutional: alert Head: normocephalic Eyes: nl conjunctiva ENMT: mucosa pink and moist Respiratory: clear to auscultation Cardiovascular: regular rate and rhythm Gastrointestinal: non-tender, soft Results Result Diagram: 06/07/16 0730 06/07/16 0730 Results 24 hrs Laboratory Tests Test 06/06/16 12:57 06/06/16 17:38 06/06/16 21:48 06/07/16 07:30 Bedside Glucose 166 127 142 Alanine Aminotransferase (ALT/SGPT) 27 Albumin 2.9 L Albumin/Globulin Ratio 0.87 Alkaline Phosphatase 80 Anion Gap 15 Aspartate Amino Transf (AST/SGOT) 11 L Basophils # 0.0 Basophils % 0.4 Blood Urea Nitrogen 18 Calcium Level 8.3 L Carbon Dioxide Level 22 Chloride Level 101 Creatinine 0.62 Direct Bilirubin 0.00 Eosinophils # 0.4 Eosinophils % 3.8 Globulin 3.30 H Glucose Level 153 Hematocrit 32.6 L Hemoglobin 11.0 L Indirect Bilirubin 0.0 Lymphocytes # 1.7 Lymphocytes % 18.2 Mean Corpuscular Hemoglobin 28.2 L Mean Corpuscular Hemoglobin Concent 33.7 Mean Corpuscular Volume 83.6 Mean Platelet Volume 9.2 Monocytes # 0.9 Monocytes % 10.0 Neutrophils # 5.9 Neutrophils % 64.3 Nucleated Red Blood Cells # 0.0 Nucleated Red Blood Cells % 0.0 Platelet Count 257 Potassium Level 3.8 Red Blood Count 3.90 L Red Cell Distribution Width 14.5 Sodium Level 134 L Total Bilirubin 0.0 L Total Protein 6.2 White Blood Count 9.1 Test 06/07/16 07:36 Bedside Glucose 162 Medications Medications Current Medications Ondansetron HCl (Zofran Inj) 4 mg Q6H PRN IV NAUSEA AND/OR VOMITING; Start at 08:00 Acetaminophen (Tylenol Tab) 650 mg Q6H PRN PO PAIN LEVEL 1-3 OR FEVER Last administered on 06/04/16 23:53; Admin Dose 650 MG; Start 06/02/16 at 08:00 Bisacodyl (Dulcolax) 5 mg DAILY PRN PO CONSTIPATION; Start 06/02/16 at 08:00 Heparin Sodium (Porcine) 5000 unit 5,000 unit Q12 SC Last administered on 09:18; Admin Dose 5,000 UNIT; Start 06/02/16 at 09:00 Ceftriaxone Sodium 50 ml @ 100 mls/hr Q24H IVPB Last administered on 06/07/16 06:12; Admin Dose 100 MLS/HR; Start 06/03/16 at 05:00 Metronidazole (Flagyl 500 Mg (Pmx)) 100 ml @ 100 mls/hr Q8 IVPB Last administered on 06/07/16 06:12; Admin Dose 100 MLS/HR; Start 06/02/16 at 08:30 Miscellaneous Information 1 ea NOTE XX ; Start 06/02/16 at 09:30 Glucose (Glutose) 15 gm Q15M PRN PO DECREASED GLUCOSE; Start 06/02/16 at 09:30 Glucose (Glutose) 22.5 gm Q15M PRN PO DECREASED GLUCOSE; Start 06/02/16 at 09: 30 Dextrose (D50w Syringe) 25 ml Q15M PRN IV DECREASED GLUCOSE; Start 06/02/16 at 09:30 Dextrose (D50w Syringe) 50 ml Q15M PRN IV DECREASED GLUCOSE; Start 06/02/16 at 09:30 Glucagon (Glucagen) 1 mg Q15M PRN IM DECREASED GLUCOSE; Start 06/02/16 at 09:30 Glucose (Glutose) 15 gm Q15M PRN BUCCAL DECREASED GLUCOSE; Start 06/02/16 at 09 :30 Diagnostic Test (Pha) (Accucheck) 1 ea 02 XX ; Start 06/03/16 at 02:00 Oseltamivir Phosphate (Tamiflu) 75 mg Q12 PO Last administered on 06/07/16 08: 41; Admin Dose 75 MG; Start 06/02/16 at 10:30; Stop 06/07/16 at 10:29 Allopurinol (Zyloprim) 100 mg DAILY GTB Last administered on 06/07/16 08:42; Admin Dose 100 MG; Start 06/03/16 at 09:00 Amlodipine Besylate (Norvasc) 5 mg DAILY GTB Last administered on 06/07/16 08: 42; Admin Dose 5 MG; Start 06/03/16 at 09:00 Levetiracetam (Keppra) 500 mg BID GTB Last administered on 06/07/16 08:42; Admin Dose 500 MG; Start 06/03/16 at 09:00 Magnesium Oxide (Mag-Ox 400) 400 mg BID GTB Last administered on 06/07/16 08:42 ; Admin Dose 400 MG; Start 06/03/16 at 09:00 Spironolactone (Aldactone) 25 mg DAILY GTB Last administered on 06/07/16 08:42 ; Admin Dose 25 MG; Start 06/03/16 at 09:00 Cholecalciferol (Vitamin D) 2,000 unit DAILY GTB Last administered on 06/07/16 08:42; Admin Dose 2,000 UNIT; Start 06/03/16 at 09:00 Lactobacillus Acidophilus/ Rhamnosus (Culturelle) 1 cap DAILY GTB Last administered on 06/06/16 08:40; Admin Dose 1 CAP; Start 06/03/16 at 09:00 Multivitamins (Thera-Plus) 5 ml DAILY GTB Last administered on 06/07/16 08:42; Admin Dose 5 ML; Start 06/03/16 at 09:00 Clonidine (Catapres) 0.1 mg Q4H PRN GTB SBP Greater than 150; Start 06/03/16 at 08:30 Insulin Glargine (Lantus) 10 unit DAILY@20 SC Last administered on 06/06/16 21: 53; Admin Dose 10 UNIT; Start 06/04/16 at 20:00 Guaifenesin/ Dextromethorphan (Robitussin Dm Liquid Cup) 5 ml Q4H PRN PEG COUGH Last administered on 06/04/16 23:56; Admin Dose 5 ML; Start 06/04/16 at 09:30 Doxycycline Hyclate (Vibramycin) 100 mg BID GTB Last administered on 06/07/16 08:42; Admin Dose 100 MG; Start 06/04/16 at 10:00 CECILIA NGO MD Jun 07, 2016 10:09
[2016-06-07] MEDS: LACTOBACILLUS RHAMNOSUS CAP GTB SCH (10:15)
--- NOTE | 2016-06-07 10:15 | PN ---
Date/Time of Note Date/Time of Note DATE: 06/07/16 TIME: 10:05 Assessment/Plan VTE Prophylaxis VTE Prophylaxis Intervention: SCD's Lines/Catheters IV [facility]ter Type (from [facility]): Saline Lock Urinary Cath still in place: No Assessment/Plan Chief Complaint/Hosp Course 1. R pneumonia , either aspiration or community acquired . He is positive for Influenza B and is on Tamiflu . He is being seen by ID .WBC is normal. He is being switched from IV to gastric tube antibiotic administration. 2. h/o bilateral subdural hematomas s/p surgery. CT yesterday shows slight decrease in subdural hematomas 3. h/o non Hodgekins lymphoma 4. DM 5. HTN 6. h/o encephalitis / encephalopathy 1 year ago 7. diffuse weakness/debilitated 8. recent PET scan showed bilateral hydronephrosis , renal ultrasound done and only shows mild L hydronephrosis 9. dysphagia , speech therapy ordered .he has PEG for feeding , dietary consult , video swallowing study yesterday shows aspiration . He must be NPO and is better with oral and NT suctioning .Will teach his home RN how to do the oral and the nasotracheal deep suctioning. Problems: Subjective 24 Hr Interval Summary Free Text/Dictation He is awake and alert. His home health nurse is in the room with him. She is going to learn how to suction him both orally and with deep tracheal suctioning. Respiratory: cough Gastrointestinal: no complaints Genitourinary: no complaints Musculoskeletal: no complaints Exam/Review of Systems Vital Signs Vitals Vital Signs Date Time Temp Pulse Resp B/P Pulse Ox O2 Delivery O2 Flow Rate FiO2 06/07/16 09:16 77 20 97 Nasal Cannula 2.0 06/07/16 08:23 98.0 119/67 Intake and Output 06/06/16 06/06/16 06/07/16 15:00 23:00 07:00 Intake Total 100 ml 150 ml Output Total 500 ml Balance 100 ml -350 ml Exam Constitutional: alert, well developed Respiratory: congested cough, wheezing Cardiovascular: regular rate and rhythm Gastrointestinal: soft Musculoskeletal: nl extremities to inspection Results Result Diagram: 06/07/16 0730 06/07/16 0730 Results 24 hrs Laboratory Tests Test 06/06/16 12:57 06/06/16 17:38 06/06/16 21:48 06/07/16 07:30 Bedside Glucose 166 127 142 Alanine Aminotransferase (ALT/SGPT) 27 Albumin 2.9 L Albumin/Globulin Ratio 0.87 Alkaline Phosphatase 80 Anion Gap 15 Aspartate Amino Transf (AST/SGOT) 11 L Basophils # 0.0 Basophils % 0.4 Blood Urea Nitrogen 18 Calcium Level 8.3 L Carbon Dioxide Level 22 Chloride Level 101 Creatinine 0.62 Direct Bilirubin 0.00 Eosinophils # 0.4 Eosinophils % 3.8 Globulin 3.30 H Glucose Level 153 Hematocrit 32.6 L Hemoglobin 11.0 L Indirect Bilirubin 0.0 Lymphocytes # 1.7 Lymphocytes % 18.2 Mean Corpuscular Hemoglobin 28.2 L Mean Corpuscular Hemoglobin Concent 33.7 Mean Corpuscular Volume 83.6 Mean Platelet Volume 9.2 Monocytes # 0.9 Monocytes % 10.0 Neutrophils # 5.9 Neutrophils % 64.3 Nucleated Red Blood Cells # 0.0 Nucleated Red Blood Cells % 0.0 Platelet Count 257 Potassium Level 3.8 Red Blood Count 3.90 L Red Cell Distribution Width 14.5 Sodium Level 134 L Total Bilirubin 0.0 L Total Protein 6.2 White Blood Count 9.1 Test 06/07/16 07:36 Bedside Glucose 162 Medications Medications Current Medications Ondansetron HCl (Zofran Inj) 4 mg Q6H PRN IV NAUSEA AND/OR VOMITING; Start at 08:00 Acetaminophen (Tylenol Tab) 650 mg Q6H PRN PO PAIN LEVEL 1-3 OR FEVER Last administered on 06/04/16 23:53; Admin Dose 650 MG; Start 06/02/16 at 08:00 Bisacodyl (Dulcolax) 5 mg DAILY PRN PO CONSTIPATION; Start 06/02/16 at 08:00 Heparin Sodium (Porcine) 5000 unit 5,000 unit Q12 SC Last administered on 09:18; Admin Dose 5,000 UNIT; Start 06/02/16 at 09:00 Ceftriaxone Sodium 50 ml @ 100 mls/hr Q24H IVPB Last administered on 06/07/16 06:12; Admin Dose 100 MLS/HR; Start 06/03/16 at 05:00 Metronidazole (Flagyl 500 Mg (Pmx)) 100 ml @ 100 mls/hr Q8 IVPB Last administered on 06/07/16 06:12; Admin Dose 100 MLS/HR; Start 06/02/16 at 08:30 Miscellaneous Information 1 ea NOTE XX ; Start 06/02/16 at 09:30 Glucose (Glutose) 15 gm Q15M PRN PO DECREASED GLUCOSE; Start 06/02/16 at 09:30 Glucose (Glutose) 22.5 gm Q15M PRN PO DECREASED GLUCOSE; Start 06/02/16 at 09: 30 Dextrose (D50w Syringe) 25 ml Q15M PRN IV DECREASED GLUCOSE; Start 06/02/16 at 09:30 Dextrose (D50w Syringe) 50 ml Q15M PRN IV DECREASED GLUCOSE; Start 06/02/16 at 09:30 Glucagon (Glucagen) 1 mg Q15M PRN IM DECREASED GLUCOSE; Start 06/02/16 at 09:30 Glucose (Glutose) 15 gm Q15M PRN BUCCAL DECREASED GLUCOSE; Start 06/02/16 at 09 :30 Diagnostic Test (Pha) (Accucheck) 1 ea 02 XX ; Start 06/03/16 at 02:00 Oseltamivir Phosphate (Tamiflu) 75 mg Q12 PO Last administered on 06/07/16 08: 41; Admin Dose 75 MG; Start 06/02/16 at 10:30; Stop 06/07/16 at 10:29 Allopurinol (Zyloprim) 100 mg DAILY GTB Last administered on 06/07/16 08:42; Admin Dose 100 MG; Start 06/03/16 at 09:00 Amlodipine Besylate (Norvasc) 5 mg DAILY GTB Last administered on 06/07/16 08: 42; Admin Dose 5 MG; Start 06/03/16 at 09:00 Levetiracetam (Keppra) 500 mg BID GTB Last administered on 06/07/16 08:42; Admin Dose 500 MG; Start 06/03/16 at 09:00 Magnesium Oxide (Mag-Ox 400) 400 mg BID GTB Last administered on 06/07/16 08:42 ; Admin Dose 400 MG; Start 06/03/16 at 09:00 Spironolactone (Aldactone) 25 mg DAILY GTB Last administered on 06/07/16 08:42 ; Admin Dose 25 MG; Start 06/03/16 at 09:00 Cholecalciferol (Vitamin D) 2,000 unit DAILY GTB Last administered on 06/07/16 08:42; Admin Dose 2,000 UNIT; Start 06/03/16 at 09:00 Lactobacillus Acidophilus/ Rhamnosus (Culturelle) 1 cap DAILY GTB Last administered on 06/06/16 08:40; Admin Dose 1 CAP; Start 06/03/16 at 09:00 Multivitamins (Thera-Plus) 5 ml DAILY GTB Last administered on 06/07/16 08:42; Admin Dose 5 ML; Start 06/03/16 at 09:00 Clonidine (Catapres) 0.1 mg Q4H PRN GTB SBP Greater than 150; Start 06/03/16 at 08:30 Insulin Glargine (Lantus) 10 unit DAILY@20 SC Last administered on 06/06/16 21: 53; Admin Dose 10 UNIT; Start 06/04/16 at 20:00 Guaifenesin/ Dextromethorphan (Robitussin Dm Liquid Cup) 5 ml Q4H PRN PEG COUGH Last administered on 06/04/16 23:56; Admin Dose 5 ML; Start 06/04/16 at 09:30 Doxycycline Hyclate (Vibramycin) 100 mg BID GTB Last administered on 06/07/16 08:42; Admin Dose 100 MG; Start 06/04/16 at 10:00 MACIEJ VIDES MD Jun 07, 2016 10:14
[2016-06-07] MEDS: AMOXICILLIN/CLAV 875 MG TAB GTB SCH ×2 (12:38→20:42)
[2016-06-07 20:00] VITALS: BP 121/64; RESP 22
[2016-06-07 20:28] VITALS: BP 121/64; PULSE 66; RESP 22
[2016-06-07] MEDS: ACETAMINOPHEN 325 MG TAB PO PRN (20:41)
[2016-06-07] MEDS: GUAIFENESIN/DM 5ML CUP PEG PRN (20:42)
[2016-06-07] MEDS: INSULIN GLARGINE [LANtus] 3 ML PEN SC SCH (20:54)
[2016-06-08] MEDS: IPRATROPIUM (NEB) 0.5 MG/2.5 ML AMP NEB SCH ×6 (01:18→20:48)
[2016-06-08] MEDS: ALBUTEROL 0.5% (NEB) 2.5 MG/0.5 ML AMP NEB SCH ×6 (01:18→20:47)
[2016-06-08] MEDS: ACCUCHECK AT 2AM (Patients on SS coverage) XX SCH (01:41)
[2016-06-08 07:57] VITALS: BP 125/66; RESP 16
[2016-06-08] MEDS: metFORMIN 500 MG TAB GTB SCH ×2 (09:08→18:01)
[2016-06-08] MEDS: CHOLECALCIFEROL 1,000 UNIT TAB GTB SCH (09:09)
[2016-06-08] MEDS: MAGNESIUM OXIDE 400 MG TAB GTB SCH ×2 (09:09→21:17)
[2016-06-08] MEDS: SPIRONOLACTONE 25 MG TAB GTB SCH (09:09)
[2016-06-08] MEDS: DOXYCYCLINE 100 MG TAB GTB SCH ×2 (09:09→21:17)
[2016-06-08] MEDS: LACTOBACILLUS RHAMNOSUS CAP GTB SCH (09:09)
[2016-06-08] MEDS: AMOXICILLIN/CLAV 875 MG TAB GTB SCH ×2 (09:09→21:18)
[2016-06-08] MEDS: LEVETIRACETAM 500 MG TAB GTB SCH ×2 (09:09→21:17)
[2016-06-08] MEDS: ALLOPURINOL 100 MG TAB GTB SCH (09:09)
[2016-06-08] MEDS: MULTIVITAMINS 5 ML CUP GTB SCH (09:09)
[2016-06-08] MEDS: AMLODIPINE 5 MG TAB GTB SCH (09:11)
[2016-06-08] MEDS: HEPARIN 5,000 UNIT/0.5 ML SYG SC SCH ×2 (09:35→21:29)
[2016-06-08] MEDS: INSULIN ASPART [NOVOLOG] 3 ML PEN SC SCH ×3 (09:35→18:46)
--- NOTE | 2016-06-08 11:38 | PN ---
Date/Time of Note Date/Time of Note DATE: 06/08/16 TIME: 11:35 Assessment/Plan VTE Prophylaxis VTE Prophylaxis Intervention: anti-embolic stocking Lines/Catheters IV Catheter Type (from Nrs): Saline Lock Urinary Cath still in place: Yes Reason Cath still needed: other (indicate) (bedbound) Assessment/Plan Assessment/Plan 1. Aspiration PNA, Influenza B - ceftriaxone and flagyl d/ulises - cont doxy and augmentin through 06/09 - completed 5 day course of tamiflu - plans to d/c home with caregiver on Friday 2. h/o bilateral subdural hematomas s/p surgery. CT with slight decrease in subdural hematomas 3. h/o non Hodgekins lymphoma 4. DM 5. HTN 6. h/o encephalitis / encephalopathy 1 year ago 7. diffuse weakness/debilitated 8. recent PET scan showed bilateral hydronephrosis , renal ultrasound done and only shows mild L hydronephrosis 9. dysphagia , speech therapy ordered .he has PEG for feeding , dietary consult , video swallowing study shows aspiration . He must be NPO and is better with oral and NT suctioning .Caregiver has undergone teaching for oral and the nasotracheal deep suctioning. Subjective 24 Hr Interval Summary Free Text/Dictation Patient has no acute complaints. Caregiver at bedside. Constitutional: improved, no complaints Exam/Review of Systems Vital Signs Vitals Vital Signs Date Time Temp Pulse Resp B/P Pulse Ox O2 Delivery O2 Flow Rate FiO2 06/08/16 08:52 72 18 98 Nasal Cannula 2.0 06/08/16 07:57 97.3 125/66 Intake and Output 06/07/16 06/07/16 06/08/16 15:00 23:00 07:00 Intake Total 800 ml Output Total 650 ml 600 ml Balance -650 ml 200 ml Exam Constitutional: alert, oriented, well developed Respiratory: clear to auscultation, normal air movement Cardiovascular: nl pulses, regular rate and rhythm Gastrointestinal: nl liver, spleen, non-tender, soft Results Result Diagram: 06/07/16 0730 06/07/16 0730 Results 24 hrs Laboratory Tests Test 06/07/16 12:39 06/07/16 18:50 06/07/16 20:40 06/08/16 08:01 Bedside Glucose 153 146 116 144 Medications Medications Current Medications Ondansetron HCl (Zofran Inj) 4 mg Q6H PRN IV NAUSEA AND/OR VOMITING; Start at 08:00 Acetaminophen (Tylenol Tab) 650 mg Q6H PRN PO PAIN LEVEL 1-3 OR FEVER Last administered on 06/07/16 20:41; Admin Dose 650 MG; Start 06/02/16 at 08:00 Bisacodyl (Dulcolax) 5 mg DAILY PRN PO CONSTIPATION; Start 06/02/16 at 08:00 Heparin Sodium (Porcine) (Heparin (5000 Units/0.5 ml)) 5,000 unit Q12 SC Last administered on 06/08/16 09:35; Admin Dose 5,000 UNIT; Start 06/02/16 at 09:00 Miscellaneous Information 1 ea NOTE XX ; Start 06/02/16 at 09:30 Glucose (Glutose) 15 gm Q15M PRN PO DECREASED GLUCOSE; Start 06/02/16 at 09:30 Glucose (Glutose) 22.5 gm Q15M PRN PO DECREASED GLUCOSE; Start 06/02/16 at 09: 30 Dextrose (D50w Syringe) 25 ml Q15M PRN IV DECREASED GLUCOSE; Start 06/02/16 at 09:30 Dextrose (D50w Syringe) 50 ml Q15M PRN IV DECREASED GLUCOSE; Start 06/02/16 at 09:30 Glucagon (Glucagen) 1 mg Q15M PRN IM DECREASED GLUCOSE; Start 06/02/16 at 09:30 Glucose (Glutose) 15 gm Q15M PRN BUCCAL DECREASED GLUCOSE; Start 06/02/16 at 09 :30 Diagnostic Test (Pha) (Accucheck) 1 ea 02 XX ; Start 06/03/16 at 02:00 Allopurinol (Zyloprim) 100 mg DAILY GTB Last administered on 06/08/16 09:09; Admin Dose 100 MG; Start 06/03/16 at 09:00 Amlodipine Besylate (Norvasc) 5 mg DAILY GTB Last administered on 06/08/16 09: 11; Admin Dose 5 MG; Start 06/03/16 at 09:00 Levetiracetam (Keppra) 500 mg BID GTB Last administered on 06/08/16 09:09; Admin Dose 500 MG; Start 06/03/16 at 09:00 Magnesium Oxide (Mag-Ox 400) 400 mg BID GTB Last administered on 06/08/16 09:09 ; Admin Dose 400 MG; Start 06/03/16 at 09:00 Spironolactone (Aldactone) 25 mg DAILY GTB Last administered on 06/08/16 09:09 ; Admin Dose 25 MG; Start 06/03/16 at 09:00 Cholecalciferol (Vitamin D) 2,000 unit DAILY GTB Last administered on 06/08/16 09:09; Admin Dose 2,000 UNIT; Start 06/03/16 at 09:00 Lactobacillus Acidophilus/ Rhamnosus (Culturelle) 1 cap DAILY GTB Last administered on 06/08/16 09:09; Admin Dose 1 CAP; Start 06/03/16 at 09:00 Multivitamins (Thera-Plus) 5 ml DAILY GTB Last administered on 06/08/16 09:09; Admin Dose 5 ML; Start 06/03/16 at 09:00 Clonidine (Catapres) 0.1 mg Q4H PRN GTB SBP Greater than 150; Start 06/03/16 at 08:30 Insulin Glargine (Lantus) 10 unit DAILY@20 SC Last administered on 06/07/16 20: 54; Admin Dose 10 UNIT; Start 06/04/16 at 20:00 Guaifenesin/ Dextromethorphan (Robitussin Dm Liquid Cup) 5 ml Q4H PRN PEG COUGH Last administered on 06/07/16 20:42; Admin Dose 5 ML; Start 06/04/16 at 09 :30 Doxycycline Hyclate (Vibramycin) 100 mg BID GTB Last administered on 06/08/16 09:09; Admin Dose 100 MG; Start 06/04/16 at 10:00 Amoxicillin/ Clavulanate Potassium (Augmentin) 875 mg BID GTB Last administered on 06/08/16 09:09; Admin Dose 875 MG; Start 06/07/16 at 11:00 RUBY GRAY MD Jun 08, 2016 11:38
[2016-06-08 19:41] VITALS: BP 104/63; RESP 20
[2016-06-08] MEDS: INSULIN GLARGINE [LANtus] 3 ML PEN SC SCH (20:08)
[2016-06-09] MEDS: ALBUTEROL 0.5% (NEB) 2.5 MG/0.5 ML AMP NEB SCH ×6 (00:15→20:57)
[2016-06-09] MEDS: IPRATROPIUM (NEB) 0.5 MG/2.5 ML AMP NEB SCH ×6 (00:15→20:57)
[2016-06-09 06:37] LABS: ADD SCAN DIFF NO
[2016-06-09] MEDS: INSULIN ASPART [NOVOLOG] 3 ML PEN SC SCH ×5 (06:45→23:05)
[2016-06-09 06:59] LABS: ABNORMAL IP MESSAGE 1; BASOPHIL # 0.1 10^3/ul (0.0-0.1); BASOPHILS % 0.7 % (0.0-2.0); EOSINOPHILS # 0.4 10^3/ul (0.0-0.5); EOSINOPHILS % 4.3 % (0.0-7.0); HEMATOCRIT 35.7 % (42.0-52.0); LYMPHOCYTES # 2.3 10^3/ul (0.8-2.9); LYMPHOCYTES % 23.6 % (15.0-51.0); MEAN CORPUSCULAR HEMOGLOBIN 28.9 pg (29.0-33.0); MEAN CORPUSCULAR HGB CONC 33.6 g/dl (32.0-37.0); MEAN PLATELET VOLUME 9.4 fl (7.4-10.4); MONOCYTE # 0.7 10^3/ul (0.3-0.9); MONOCYTES % 7.5 % (0.0-11.0); NEUTROPHIL # 5.6 10^3/ul (1.6-7.5); NUCLEATED RED BLOOD CELLS% 0.2 /100WBC (0.0-0.0); PLATELET COUNT 325 10^3/UL (140-415); RED BLOOD COUNT 4.15 10^6/ul (4.70-6.10); RED CELL DISTRIBUTION WIDTH 14.7 % (11.5-14.5); WHITE BLOOD COUNT 9.6 10^3/ul (4.8-10.8)
[2016-06-09 07:30] VITALS: BP 138/62; RESP 22
[2016-06-09 08:00] LABS: CREATININE 0.63 mg/dl (0.61-1.24)
[2016-06-09 08:01] LABS: CALCIUM 8.8 mg/dl (8.4-10.2)
[2016-06-09] MEDS: SPIRONOLACTONE 25 MG TAB GTB SCH (09:17)
[2016-06-09] MEDS: AMOXICILLIN/CLAV 875 MG TAB GTB SCH ×2 (09:17→20:46)
[2016-06-09] MEDS: LACTOBACILLUS RHAMNOSUS CAP GTB SCH (09:17)
[2016-06-09] MEDS: MAGNESIUM OXIDE 400 MG TAB GTB SCH ×2 (09:17→20:46)
[2016-06-09] MEDS: AMLODIPINE 5 MG TAB GTB SCH (09:17)
[2016-06-09] MEDS: ALLOPURINOL 100 MG TAB GTB SCH (09:17)
[2016-06-09] MEDS: MULTIVITAMINS 5 ML CUP GTB SCH (09:17)
[2016-06-09] MEDS: CHOLECALCIFEROL 1,000 UNIT TAB GTB SCH (09:17)
[2016-06-09] MEDS: metFORMIN 500 MG TAB GTB SCH ×2 (09:17→18:01)
[2016-06-09] MEDS: LEVETIRACETAM 500 MG TAB GTB SCH ×2 (09:17→20:46)
[2016-06-09] MEDS: DOXYCYCLINE 100 MG TAB GTB SCH ×2 (09:17→20:46)
[2016-06-09] MEDS: HEPARIN 5,000 UNIT/0.5 ML SYG SC SCH ×2 (09:31→20:51)
--- NOTE | 2016-06-09 10:59 | PN ---
Date/Time of Note Date/Time of Note DATE: 06/09/16 TIME: 10:58 Assessment/Plan VTE Prophylaxis VTE Prophylaxis Intervention: anti-embolic stocking Lines/Catheters IV Catheter Type (from Nrs): Peripheral IV Urinary Cath still in place: Yes Reason Cath still needed: urinary retention Assessment/Plan Assessment/Plan 1. Aspiration PNA, Influenza B - ceftriaxone and flagyl d/ulises - cont doxy and augmentin through 06/09 --> d/c Abx tomorrow - completed 5 day course of tamiflu - plans to d/c home with caregiver tomorrow 2. h/o bilateral subdural hematomas s/p surgery. CT with slight decrease in subdural hematomas 3. h/o non Hodgekins lymphoma 4. DM 5. HTN 6. h/o encephalitis / encephalopathy 1 year ago 7. diffuse weakness/debilitated 8. recent PET scan showed bilateral hydronephrosis , renal ultrasound done and only shows mild L hydronephrosis 9. dysphagia , speech therapy ordered .he has PEG for feeding , dietary consult , video swallowing study shows aspiration . He must be NPO and is better with oral and NT suctioning .Caregiver has undergone teaching for oral and the nasotracheal deep suctioning. Subjective 24 Hr Interval Summary Constitutional: improved, no complaints Exam/Review of Systems Vital Signs Vitals Vital Signs Date Time Temp Pulse Resp B/P Pulse Ox O2 Delivery O2 Flow Rate FiO2 06/09/16 09:21 74 20 97 Nasal Cannula 2.0 06/09/16 07:30 98.1 138/62 Intake and Output 06/08/16 06/08/16 06/09/16 15:00 23:00 07:00 Intake Total 960 ml 820 ml Output Total 800 ml 550 ml Balance 160 ml 270 ml Exam Constitutional: alert, oriented, well developed Respiratory: clear to auscultation, normal air movement Cardiovascular: nl pulses, regular rate and rhythm Gastrointestinal: nl liver, spleen, non-tender, soft Results Result Diagram: 06/09/16 0509 06/09/16 0509 Results 24 hrs Laboratory Tests Test 06/08/16 12:18 06/08/16 17:59 06/08/16 20:01 06/09/16 00:21 Bedside Glucose 150 144 125 119 Test 06/09/16 05:09 06/09/16 06:31 Anion Gap 14 Basophils # 0.1 Basophils % 0.7 Blood Urea Nitrogen 20 Calcium Level 8.8 Carbon Dioxide Level 24 Chloride Level 101 Creatinine 0.63 Eosinophils # 0.4 Eosinophils % 4.3 Glucose Level 157 Hematocrit 35.7 L Hemoglobin 12.0 L Lymphocytes # 2.3 Lymphocytes % 23.6 Mean Corpuscular Hemoglobin 28.9 L Mean Corpuscular Hemoglobin Concent 33.6 Mean Corpuscular Volume 86.0 Mean Platelet Volume 9.4 Monocytes # 0.7 Monocytes % 7.5 Neutrophils # 5.6 Neutrophils % 58.0 Nucleated Red Blood Cells # 0.0 Nucleated Red Blood Cells % 0.2 H Platelet Count 325 # Potassium Level 4.0 Red Blood Count 4.15 L Red Cell Distribution Width 14.7 H Sodium Level 135 White Blood Count 9.6 Bedside Glucose 165 Medications Medications Current Medications Ondansetron HCl (Zofran Inj) 4 mg Q6H PRN IV NAUSEA AND/OR VOMITING; Start at 08:00 Acetaminophen (Tylenol Tab) 650 mg Q6H PRN PO PAIN LEVEL 1-3 OR FEVER Last administered on 06/07/16 20:41; Admin Dose 650 MG; Start 06/02/16 at 08:00 Bisacodyl (Dulcolax) 5 mg DAILY PRN PO CONSTIPATION; Start 06/02/16 at 08:00 Heparin Sodium (Porcine) (Heparin (5000 Units/0.5 ml)) 5,000 unit Q12 SC Last administered on 06/09/16 09:31; Admin Dose 5,000 UNIT; Start 06/02/16 at 09:00 Miscellaneous Information 1 ea NOTE XX ; Start 06/02/16 at 09:30 Glucose (Glutose) 15 gm Q15M PRN PO DECREASED GLUCOSE; Start 06/02/16 at 09:30 Glucose (Glutose) 22.5 gm Q15M PRN PO DECREASED GLUCOSE; Start 06/02/16 at 09: 30 Dextrose (D50w Syringe) 25 ml Q15M PRN IV DECREASED GLUCOSE; Start 06/02/16 at 09:30 Dextrose (D50w Syringe) 50 ml Q15M PRN IV DECREASED GLUCOSE; Start 06/02/16 at 09:30 Glucagon (Glucagen) 1 mg Q15M PRN IM DECREASED GLUCOSE; Start 06/02/16 at 09:30 Glucose (Glutose) 15 gm Q15M PRN BUCCAL DECREASED GLUCOSE; Start 06/02/16 at 09 :30 Allopurinol (Zyloprim) 100 mg DAILY GTB Last administered on 06/09/16 09:17; Admin Dose 100 MG; Start 06/03/16 at 09:00 Amlodipine Besylate (Norvasc) 5 mg DAILY GTB Last administered on 06/09/16 09: 17; Admin Dose 5 MG; Start 06/03/16 at 09:00 Levetiracetam (Keppra) 500 mg BID GTB Last administered on 06/09/16 09:17; Admin Dose 500 MG; Start 06/03/16 at 09:00 Magnesium Oxide (Mag-Ox 400) 400 mg BID GTB Last administered on 06/09/16 09: ; Admin Dose 400 MG; Start 06/03/16 at 09:00 Spironolactone (Aldactone) 25 mg DAILY GTB Last administered on 06/09/16 09:17 ; Admin Dose 25 MG; Start 06/03/16 at 09:00 Cholecalciferol (Vitamin D) 2,000 unit DAILY GTB Last administered on 06/09/16 09:17; Admin Dose 2,000 UNIT; Start 06/03/16 at 09:00 Lactobacillus Acidophilus/ Rhamnosus (Culturelle) 1 cap DAILY GTB Last administered on 06/09/16 09:17; Admin Dose 1 CAP; Start 06/03/16 at 09:00 Multivitamins (Thera-Plus) 5 ml DAILY GTB Last administered on 06/09/16 09:17; Admin Dose 5 ML; Start 06/03/16 at 09:00 Clonidine (Catapres) 0.1 mg Q4H PRN GTB SBP Greater than 150; Start 06/03/16 at 08:30 Insulin Glargine (Lantus) 10 unit DAILY@20 SC Last administered on 06/08/16 20: 08; Admin Dose 10 UNIT; Start 06/04/16 at 20:00 Guaifenesin/ Dextromethorphan (Robitussin Dm Liquid Cup) 5 ml Q4H PRN PEG COUGH Last administered on 06/07/16 20:42; Admin Dose 5 ML; Start 06/04/16 at 09 :30 Doxycycline Hyclate (Vibramycin) 100 mg BID GTB Last administered on 06/09/16 09:17; Admin Dose 100 MG; Start 06/04/16 at 10:00 Amoxicillin/ Clavulanate Potassium (Augmentin) 875 mg BID GTB Last administered on 06/09/16 09:17; Admin Dose 875 MG; Start 06/07/16 at 11:00 Insulin Aspart (Novolog Insulin Pen) NOVOLOG *MODERATE* ALGORI... Q6 SC Last administered on 06/09/16 06:45; Admin Dose 2 UNIT; Start 06/09/16 at 00:00 RUBY GRAY MD Jun 09, 2016 10:59
[2016-06-09 20:53] VITALS: BP 125/66; RESP 18
[2016-06-09] MEDS: INSULIN GLARGINE [LANtus] 3 ML PEN SC SCH (21:04)
[2016-06-10] MEDS: ALBUTEROL 0.5% (NEB) 2.5 MG/0.5 ML AMP NEB SCH ×4 (00:32→12:59)
[2016-06-10] MEDS: IPRATROPIUM (NEB) 0.5 MG/2.5 ML AMP NEB SCH ×4 (00:32→12:59)
[2016-06-10] MEDS: INSULIN ASPART [NOVOLOG] 3 ML PEN SC SCH ×2 (05:23→12:04)
[2016-06-10 07:44] VITALS: BP 123/78; RESP 20
--- NOTE | 2016-06-10 08:17 | PDOCDIS ---
Discharge Instructions CONDITION Patient Condition: Fair HOME CARE INSTRUCTIONS: Special Diet: Tube FeedingYour diet recommendation is: keep patient NPO and tube feeding at 50 cc/hr for 24 hours . ACTIVITY: Activity Restrictions: Slowly Increase Activity Weight Bearing Bathing Restrictions: Shower FOLLOW UP/APPOINTMENTS Appointments MACIEJ Greenfield MD Jun 10, 2016 08:17
--- NOTE | 2016-06-10 08:41 | CONS ---
Date/Time of Note Date/Time of Note DATE: 06/10/16 TIME: 08:39 Assessment/Plan Assessment/Plan Chief Complaint/Hosp Course 1) Influenza B with hx of vomiting and current lung infiltrates continue with ceftriaxone/flagyl/tamiflu d/c azithro and start doxy to cover atypicals and MRSA s.aureus is the most common bacteria post flu check procalcitonin in a.m. send nasal for MRSA 06/05 - continue with ceftriaxone/flagyl/tamiflu/doxy when wbc normalizes can change to po doxy/augmentin/tamiflu (via g-tube) 06/06 - a.m. labs are pending but if wbc is normal will change ceftriaxone/flagyl to augmentin via g-tube nasal was neg for MRSA awaits swallow eval CT of brain showed somewhat smaller SDH, no new issues 06/07 - normal wbc now, d/c ceftriaxone and flagyl start augmentin and continue with doxy thru 06/09/16 d/c tamiflu (completed his 5 day course) can d/c isolation on 06/09 06/10 - d/c antibiotics and isolation ok for d/c from ID perspective 2) hx of NHL Problems: Consultation Date/Type/Reason Admit Date/Time Jun 02, 2016 at 07:46 Initial Consult Date 06/04/16 Type of Consultation: ID [id number] HR Interval Summary Free Text/Dictation spoke to daughter no N, V, D breathing is ok Exam/Review of Systems Vital Signs Vitals Vital Signs Date Time Temp Pulse Resp B/P Pulse Ox O2 Delivery O2 Flow Rate FiO2 06/10/16 07:44 97.5 83 20 123/78 97 06/10/16 06:06 Nasal Cannula 1.0 Intake and Output 06/09/16 06/09/16 06/10/16 15:00 23:00 07:00 Intake Total 960 ml 850 ml Output Total 900 ml 600 ml Balance 60 ml 250 ml Exam Constitutional: alert Head: normocephalic Eyes: nl conjunctiva ENMT: mucosa pink and moist Respiratory: clear to auscultation Cardiovascular: regular rate and rhythm Gastrointestinal: non-tender, soft Results Result Diagram: 06/09/16 0509 06/09/16 0509 Results 24 hrs Laboratory Tests Test 06/09/16 12:07 06/09/16 17:58 06/09/16 20:44 06/09/16 23:04 Bedside Glucose 164 152 132 121 Test 06/10/16 05:21 Bedside Glucose 149 Medications Medications Current Medications Ondansetron HCl (Zofran Inj) 4 mg Q6H PRN IV NAUSEA AND/OR VOMITING; Start at 08:00 Acetaminophen (Tylenol Tab) 650 mg Q6H PRN PO PAIN LEVEL 1-3 OR FEVER Last administered on 06/07/16 20:41; Admin Dose 650 MG; Start 06/02/16 at 08:00 Bisacodyl (Dulcolax) 5 mg DAILY PRN PO CONSTIPATION; Start 06/02/16 at 08:00 Heparin Sodium (Porcine) (Heparin (5000 Units/0.5 ml)) 5,000 unit Q12 SC Last administered on 06/09/16 20:51; Admin Dose 5,000 UNIT; Start 06/02/16 at 09:00 Miscellaneous Information 1 ea NOTE XX ; Start 06/02/16 at 09:30 Glucose (Glutose) 15 gm Q15M PRN PO DECREASED GLUCOSE; Start 06/02/16 at 09:30 Glucose (Glutose) 22.5 gm Q15M PRN PO DECREASED GLUCOSE; Start 06/02/16 at 09: 30 Dextrose (D50w Syringe) 25 ml Q15M PRN IV DECREASED GLUCOSE; Start 06/02/16 at 09:30 Dextrose (D50w Syringe) 50 ml Q15M PRN IV DECREASED GLUCOSE; Start 06/02/16 at 09:30 Glucagon (Glucagen) 1 mg Q15M PRN IM DECREASED GLUCOSE; Start 06/02/16 at 09:30 Glucose (Glutose) 15 gm Q15M PRN BUCCAL DECREASED GLUCOSE; Start 06/02/16 at 09 :30 Allopurinol (Zyloprim) 100 mg DAILY GTB Last administered on 06/09/16 09:17; Admin Dose 100 MG; Start 06/03/16 at 09:00 Amlodipine Besylate (Norvasc) 5 mg DAILY GTB Last administered on 06/09/16 09: 17; Admin Dose 5 MG; Start 06/03/16 at 09:00 Levetiracetam (Keppra) 500 mg BID GTB Last administered on 06/09/16 20:46; Admin Dose 500 MG; Start 06/03/16 at 09:00 Magnesium Oxide (Mag-Ox 400) 400 mg BID GTB Last administered on 06/09/16 20:46 ; Admin Dose 400 MG; Start 06/03/16 at 09:00 Spironolactone (Aldactone) 25 mg DAILY GTB Last administered on 06/09/16 09:17 ; Admin Dose 25 MG; Start 06/03/16 at 09:00 Cholecalciferol (Vitamin D) 2,000 unit DAILY GTB Last administered on 06/09/16 09:17; Admin Dose 2,000 UNIT; Start 06/03/16 at 09:00 Lactobacillus Acidophilus/ Rhamnosus (Culturelle) 1 cap DAILY GTB Last administered on 06/09/16 09:17; Admin Dose 1 CAP; Start 06/03/16 at 09:00 Multivitamins (Thera-Plus) 5 ml DAILY GTB Last administered on 06/09/16 09:17; Admin Dose 5 ML; Start 06/03/16 at 09:00 Clonidine (Catapres) 0.1 mg Q4H PRN GTB SBP Greater than 150; Start 06/03/16 at 08:30 Insulin Glargine (Lantus) 10 unit DAILY@20 SC Last administered on 06/09/16 21: 04; Admin Dose 10 UNIT; Start 06/04/16 at 20:00 Guaifenesin/ Dextromethorphan (Robitussin Dm Liquid Cup) 5 ml Q4H PRN PEG COUGH Last administered on 06/07/16 20:42; Admin Dose 5 ML; Start 06/04/16 at 09 :30 Insulin Aspart (Novolog Insulin Pen) NOVOLOG *MODERATE* ALGORI... Q6 SC Last administered on 06/10/16 05:23; Admin Dose 2 UNIT; Start 06/09/16 at 00:00 CECILIA NGO MD Jun 10, 2016 08:41
[2016-06-10] MEDS: LEVETIRACETAM 500 MG TAB GTB SCH (09:12)
[2016-06-10] MEDS: MAGNESIUM OXIDE 400 MG TAB GTB SCH (09:13)
[2016-06-10] MEDS: SPIRONOLACTONE 25 MG TAB GTB SCH (09:13)
[2016-06-10] MEDS: ALLOPURINOL 100 MG TAB GTB SCH (09:13)
[2016-06-10] MEDS: metFORMIN 500 MG TAB GTB SCH (09:13)
[2016-06-10] MEDS: CHOLECALCIFEROL 1,000 UNIT TAB GTB SCH (09:13)
[2016-06-10] MEDS: LACTOBACILLUS RHAMNOSUS CAP GTB SCH (09:13)
[2016-06-10] MEDS: AMLODIPINE 5 MG TAB GTB SCH (09:14)
[2016-06-10] MEDS: MULTIVITAMINS 5 ML CUP GTB SCH (09:14)
[2016-06-10] MEDS: HEPARIN 5,000 UNIT/0.5 ML SYG SC SCH (09:42)
== END 2016-06-10 13:50 | disposition home health service (06) | DRG 871 ==
LOC: E/R 04:02 → TEL 07:46 → MS2 06-06 17:15
PROVIDERS: ADMIT Internal Medicine; ATTEND Internal Medicine
DX: A41.9 Sepsis, unspecified organism (principal); J69.0 Pneumonitis due to inhalation of food and vomit; E87.2 Acidosis; N13.30 Unspecified hydronephrosis; R47.01 Aphasia; R13.10 Dysphagia, unspecified; Z93.1 Gastrostomy status; E86.0 Dehydration; E11.9 Type 2 diabetes mellitus without complications; I10 Essential (primary) hypertension; F32.9 Major depressive disorder, single episode, unspecified; M1A.9XX0 Chronic gout, unspecified, without tophus (tophi); J10.1 Influenza due to other identified influenza virus with other respiratory manifestations; Z66 Do not resuscitate; Z79.4 Long term (current) use of insulin; Z74.01 Bed confinement status; Z87.891 Personal history of nicotine dependence; Z85.72 Personal history of non-Hodgkin lymphomas
CPT/HCPCS: 36415; 36600; 70450; 71010; 71275; 74230; 76775; 80048; 80053; 81003; 82803; 82962; 83605; 83735; 83880; 84100; 84145; 84484; 85025; 85610; 85730; 87040; 87081; 87400; 92610; 92611; 93005; 94640; 94644; 94664; 96372; 96374; 96375; 97110; 97162; 97530; J0456; J0696; J1815; J3475; J7030; J7042; Q9967

== ENCOUNTER 2016-07-31 19:49 | Emergency (ER) | payer MEDICARE, OTHER ==
[~2016-07-31] VITALS: Ht 160 cm; Wt 56.8 kg
[~2016-07-31 19:49] MED LIST: ACET500C5 GTB; ALLO100T GTB; AMLO-145 GTB; CHLO12TA GTB; CHOL40002 GTB; CLON-379 GTB; LACT1CAP35 GTB; LANT3I SC; LEVE500T8 GTB; MAGN400T27 GTB; METF500T4 GTB; SPIR100T31 GTB; [UNRECOGNIZED DRUG - CODE] GTB
[2016-07-31 20:00] VITALS: Ht 160 cm; Wt 56.8 kg
[2016-07-31] MEDS ORDERED: DIATR MEGLU/DIATRIZOATE SODIUM 120 ML BTL ONE (20:21)
--- NOTE | 2016-07-31 20:52 | RADRPT ---
PROCEDURE: Abdominal series CLINICAL INDICATION: Follow-up G tube placement TECHNIQUE: AP abdomen supine COMPARISON: No relevant priors. Prior abdominal ultrasound dated 06/03/2016 FINDINGS: A gastrostomy tube is noted in the gastric lumen. Gastrographin is noted in the gastric lumen and p roximal small bowel. No evidence for extravasation is present. A nonobstructive bowel gas pattern is present. No evidence for pneumoperitoneum is noted. No air-fluid levels are seen. No free air is evident. No abnormal calcifications project over the renal collecting systems. The lung bases ar e not completely visualized. The osseus structures are remarkable for mild dextroscoliosis and spondylosis of the imaged spine. Laminectomy changes are present at the L3-L5 levels. Severe left and mild right hip degenerative ch anges and joint space narrowing are noted. IMPRESSION: 1. Gastrostomy tube present in gastric lumen without evidence for extravasation of gastrographin. 2. Nonobstructive bowel gas pattern. 3. Dextroscoliosis and L3-L5 laminectomy changes. 4. 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 RPTAT: HDC .Christy Estrada MD, MD Date Time Electronically viewed and signed by .Christy Estrada MD, on 07/31/2016 20:51 .C/
--- NOTE | 2016-07-31 21:43 | ERD ---
ER Documentation Chief Complaint Date/Time DATE: 07/31/16 TIME: 21:41 Chief Complaint GASTRIC TUBE REPLACEMENT HPI Patient is a 85-year-old male with diabetes who presents for a G-tube replacement. The patient's "G-tube exploded" 30 minutes ago per the overnight cashier. The patient was brought in by ambulance. Please have the history and physical exam is limited secondary to patient's mental status. The patient's primary doctor is Dr. Vides. ROS All systems reviewed and are negative except as per history of present illness. Medications Home Meds Reported Medications Chlorpheniramine Maleate (CHLORPHENIRAMINE MALEATE) 12 Mg Tablet.er, 12 MG GTB for allergy relief, TAB 06/03/16 Lactobacillus Combination No.4 (SENIOR PROBIOTIC) 1 Each Capsule, 1 EACH GTB DAILY, CAP 06/03/16 Acetaminophen* (Tylophen*) 500 Mg Capsule, 500 MG GTB Q6H Y for PAIN LEVEL 4-6, TAB 06/03/16 Multivit with Iron-Minerals (Spectravite Senior) 1 Each Tablet, 1 EACH GTB DAILY , TAB 06/03/16 Clonidine Hcl* (Clonidine Hcl*) 0.1 Mg Tab, 0.1 MG GTB Q4H Y for ELEVATED BLOOD PRESSURE, TAB 06/03/16 Insulin Glargine* (Lantus*) 100 Unit/Ml Soln, 20 UNIT SC QHS, #1 VIAL 06/03/16 Cholecalciferol (Vitamin D3) (Vitamin D3) 4,000 Unit Capsule, 2000 UNIT GTB DAILY, CAP 06/03/16 Amlodipine Besylate* (Amlodipine Besylate*) 5 Mg Tablet, 5 MG GTB DAILY, #30 TAB 06/03/16 Magnesium Oxide* (Mag-Oxide*) 400 Mg Tablet, 400 MG GTB BID, TAB 06/03/16 Levetiracetam* (Levetiracetam*) 500 Mg Tablet, 500 MG GTB BID, TAB 06/03/16 Allopurinol* (Allopurinol*) 100 Mg Tablet, 100 MG GTB DAILY, TAB 06/03/16 Metformin Hcl* (Metformin Hcl*) 500 Mg Tablet, 500 MG GTB BID, #30 TAB 06/03/16 Spironolactone* (Spironolactone*) 100 Mg Tablet, 25 MG GTB DAILY, TAB 06/03/16 Allergies Allergies: Coded Allergies: codeine (Verified Allergy, Severe, Vomitted, 06/02/16) PMhx/Soc History of Surgery: Yes (Extraction brain Hematoma, R knee ) Anesthesia Reaction: No Hx Neurological Disorder: No Hx Respiratory Disorders: No Hx Cardiac Disorders: No Hx Psychiatric Problems: No Hx Miscellaneous Medical Probl: Yes (SDH,G tube,gout, htn, non hodgkins lymphoma,) Hx Alcohol Use: Yes (Former occasionally) Hx Substance Use: No Hx Tobacco Use: No Smoking Status: Unknown if ever smoked FmHx Family History: No diabetes Physical Exam Vitals Vital Signs Date Time Temp Pulse Resp B/P Pulse Ox O2 Delivery O2 Flow Rate FiO2 07/31/16 20:00 97.2 68 17 140/71 100 Physical Exam Const: No acute distress Head: Atraumatic Eyes: Normal Conjunctiva ENT: Normal External Ears, Nose and Mouth. Neck: Full range of motion..~ No meningismus. Resp: Clear to auscultation bilaterally Cardio: Regular rate and rhythm, no murmurs Abd: Soft, G-tube in place in the abdomen but the distal portion of the G- tube is severed Skin: No petechiae or rashes Back: No midline or flank tenderness Ext: No cyanosis, or edema Neur: Awake Procedures/MDM G-tube Insertion by me: Sterile technique, local prep and lubrication, time out performed. Location: Epigastrum Device: 18 Kiswahili G-tube Technique: Fercho pressure with twisting motion. Balloon inflation Results: Gastric contents expressed. Compl: none X-ray Abdomen 1V Interpreted by me: Free Air: None Bowel Gas: Nonspecific Contrast: Intraluminal The patient had a G-tube replaced at the bedside without difficulty. The patient will be transferred back to his nursing facility. Departure Diagnosis: Primary Impression: Encounter for feeding tube placement Condition: Fair Patient Instructions: Feeding Tube Replacement Referrals: MACIEJ VIDES MD (PCP) Additional Instructions: Call your primary care doctor TOMORROW for an appointment during the next 1 WEEK.Tell the paralegal secretary that you were referred from this facility.See the doctor sooner or return here if your condition worsens before your appointment time. BIANKA HSU MD Jul 31, 2016 21:43
== END 2016-07-31 21:30 | disposition home or self-care (01) ==
LOC: E/R 19:49
DX: Z43.1 Encounter for attention to gastrostomy (principal); E11.9 Type 2 diabetes mellitus without complications; I10 Essential (primary) hypertension; Z79.4 Long term (current) use of insulin; Z79.84 Long term (current) use of oral hypoglycemic drugs
CPT/HCPCS: 74000

== ENCOUNTER 2016-08-14 07:44 | Inpatient (IN) | payer MEDICARE, OTHER ==
[~2016-08-14] VITALS: Ht 152.4 cm; Wt 48.0 kg
[2016-08-14 08:03] VITALS: Ht 152.4 cm; Wt 48.0 kg
[2016-08-14] MEDS ORDERED: LANT3I SC (08:49)
[2016-08-14] MEDS ORDERED: SPIR25TA GTB (08:50)
[2016-08-14] MEDS ORDERED: ESCI10TA GTB (08:51)
[2016-08-14] MEDS ORDERED: FAMO20TA18 GTB (08:52)
[2016-08-14] MEDS ORDERED: SODI1TAB2 GTB (08:53)
[2016-08-14 08:58] LABS: ADD SCAN DIFF NO
[2016-08-14 09:00] LABS: ABNORMAL IP MESSAGE 1; HEMOGLOBIN 13.6 g/dl (14.0-18.0); MEAN CORPUSCULAR HEMOGLOBIN 28.9 pg (29.0-33.0); MEAN CORPUSCULAR VOLUME 84.9 fl (82.0-101.0); PLATELET COUNT 259 10^3/UL (140-415); RED BLOOD COUNT 4.71 10^6/ul (4.70-6.10); RED CELL DISTRIBUTION WIDTH 14.5 % (11.5-14.5)
[2016-08-14 09:15] LABS: INR 1.14; PROTIME 14.6 Sec (12.2-14.2); PT RATIO 1.1
[2016-08-14 09:16] LABS: PARTIAL THROMBOPLASTIN TIME 34.9 Sec (25.0-35.0)
[2016-08-14 09:17] LABS: ANION GAP 16 (8-16); BLOOD UREA NITROGEN 30 mg/dl (7-20); CALCIUM 10.2 mg/dl (8.4-10.2); CARBON DIOXIDE 24 mmol/L (21-31); CHLORIDE 104 mmol/L (97-110); CREATININE 0.71 mg/dl (0.61-1.24); GLUCOSE 143 mg/dl (70-220); POTASSIUM 4.3 mmol/L (3.5-5.1); SODIUM 140 mmol/L (135-144)
--- NOTE | 2016-08-14 09:28 | RADRPT ---
PROCEDURE: CT Brain without contrast. CLINICAL INDICATION: Generalized weakness. Status post fall and head injury. TECHNIQUE: A CT of the brain was performed on a multidetector CT scanner utilizing axial sections from the skull base through the vertex without contrast. Images were reviewed on a high-resolution jellyfish workstation. Exam CTDI = 43.48 mGy and the DLP = 720.23 mGy-cm. One or more of the following dose reduction techniques were used: Automated exposure control Adjustment of the mA and/or kV according to patient size. Use of iterative reconstruction technique. COMPARISON: CT head 06/05/2016 FINDINGS: Moderate diffuse cerebral and cerebellar atrophy is present. There is proportionate dilatation of t he ventricular system and sulci in a symmetric fashion. There is prominence of the extraaxial spaces secondary to atrophy. There is no evidence of acute intracranial hemorrhage, mass effect or midline shift. There has been no substantial change in bilateral convexity subdural hematoma measures up to 9 mm over the right frontal lobe and 6 mm over the left parietal lobe at the vertex. There is promi nent CSF space over the left frontal lobe is again noted without interval change. Old right parieta l craniotomy changes are again identified. The density of the brain is normal and the martinez/white ma tter differentiation is well preserved. Mild patchy diffuse deep white matter microangiopathic isch emic change is seen. The osseous structures are unremarkable. Paranasal sinuses are clear. Vascu lar calcifications are identified. IMPRESSION: 1. No acute intracranial hemorrhage, mass effect or midline shift. 2. No substantial change in bilateral convexity subdural hemorrhage without evidence of acute compo nent. 3. Moderate generalized atrophy. Mild microangiopathic ischemic change. 4. Intracranial atherosclerosis. RPTAT: BB .Debbie Morrison MD, MD Date Time Electronically viewed and signed by .Debbie Morrison MD, on 08/14/2016 09:28 .O/
[2016-08-14 09:37] LABS: TROPONIN-I < 0.012 ng/ml (0.00-0.12)
--- NOTE | 2016-08-14 09:58 | RADRPT ---
PROCEDURE: XR Chest 1 View. CLINICAL INDICATION: Chest pain TECHNIQUE: AP view of the chest was obtained. COMPARISON: June 06, 2016 FINDINGS: Heart size is within normal limits. The aorta appears ectatic. The patient is rotated toward the right. Subsegmental atelectasis is noted in the left lower lobe and scattered throughout the right lung. No consolidations are identified. No pneumothorax is seen. Degenerative changes are noted i n the shoulders. IMPRESSION: Ectatic appearing aorta. Scattered atelectasis throughout the right lung and in the left lower lobe. RPTAT: AA .Sukhdev Turner MD, Date Time Electronically viewed and signed by .Sukhdev Turner MD, on 08/14/2016 09:57 .P/
[2016-08-14 10:39] LABS: ADD UMIC YES; URINE BILIRUBIN (Dip) NEGATIVE (NEGATIVE); URINE BLOOD (Dip) 1+ (NEGATIVE); URINE GLUCOSE (Dip) NEGATIVE (NEGATIVE); URINE KETONES (Dip) NEGATIVE (NEGATIVE); URINE LEUKOCYTE ESTERASE (Dip) 2+ (NEGATIVE); URINE NITRITE (Dip) NEGATIVE (NEGATIVE); URINE TOTAL PROTEIN (Dip) 1+ (NEGATIVE); URINE UROBILINOGEN (Dip) 0.2 E.U./dL (0.1-1.0)
[2016-08-14 10:47] LABS: BACTERIA,URINE FEW; URINE COLOR YELLOW (YELLOW)
[2016-08-14] MEDS ORDERED: CEFTRIAXONE 1 GM/50 ML (PMX) 50 ML IVPB STA (10:48)
[2016-08-14] MEDS ORDERED: SODIUM CHLORIDE 0.9% 1L BAG IV* STA (10:48)
[2016-08-14] MEDS ORDERED: SOD CHLORIDE 0.9% 1,000 ML IV SCH (11:05)
--- NOTE | 2016-08-14 11:12 | ERA ---
ER Documentation Chief Complaint Date/Time DATE: 08/14/16 TIME: 11:07 Chief Complaint fell from bed has left forehead abrasion, no ko HPI This 85-year-old male presents to the emergency room for evaluation after a ground-level fall. This patient does have a history of dementia and chronic weakness. According to the patient and patient's caregiver he was getting out of bed this morning and felt weak and fell forward. He had no loss of consciousness. The patient did hit his head, and he denies being on any blood thinners. This patients caregiver states that he does have a history of a previous brain bleed, and "hematoma". The patient was brought to the emergency room for evaluation. ROS All systems reviewed and are negative except as per history of present illness. Medications Home Meds Reported Medications Sodium Chloride* (Sodium Chloride*) 1 Gm Tablet, 1 GM GTB TID, TAB 08/14/16 Famotidine* (Famotidine*) 20 Mg Tablet, 20 MG GTB BID Y for GASTROINTESTINAL UPSET, #60 TAB 08/14/16 Escitalopram Oxalate* (Lexapro*) 10 Mg Tablet, 10 MG GTB DAILY, #30 TAB 08/14/16 Spironolactone* (Aldactone*) 25 Mg Tablet, 25 MG GTB DAILY, #30 TAB 08/14/16 Insulin Glargine* (Lantus*) 100 Unit/Ml Soln, 10 UNIT SC QHS, #1 VIAL 08/14/16 Chlorpheniramine Maleate (CHLORPHENIRAMINE MALEATE) 12 Mg Tablet.er, 12 MG GTB for allergy relief, TAB 06/03/16 Lactobacillus Combination No.4 (SENIOR PROBIOTIC) 1 Each Capsule, 1 EACH GTB DAILY, CAP 06/03/16 Acetaminophen* (Tylophen*) 500 Mg Capsule, 500 MG GTB Q6H Y for PAIN LEVEL 4-6, TAB 06/03/16 Multivit with Iron-Minerals (Spectravite Senior) 1 Each Tablet, 1 EACH GTB DAILY , TAB 06/03/16 Clonidine Hcl* (Clonidine Hcl*) 0.1 Mg Tab, 0.1 MG GTB Q4H Y for ELEVATED BLOOD PRESSURE, TAB 06/03/16 Cholecalciferol (Vitamin D3) (Vitamin D3) 4,000 Unit Capsule, 2000 UNIT GTB DAILY, CAP 06/03/16 Amlodipine Besylate* (Amlodipine Besylate*) 5 Mg Tablet, 5 MG GTB DAILY, #30 TAB 06/03/16 Magnesium Oxide* (Mag-Oxide*) 400 Mg Tablet, 400 MG GTB BID, TAB 06/03/16 Levetiracetam* (Levetiracetam*) 500 Mg Tablet, 500 MG GTB BID, TAB 06/03/16 Allopurinol* (Allopurinol*) 100 Mg Tablet, 100 MG GTB DAILY, TAB 06/03/16 Metformin Hcl* (Metformin Hcl*) 500 Mg Tablet, 500 MG GTB BID, #30 TAB 06/03/16 Discontinued Reported Medications Insulin Glargine* (Lantus*) 100 Unit/Ml Soln, 20 UNIT SC QHS, #1 VIAL 06/03/16 Spironolactone* (Spironolactone*) 100 Mg Tablet, 25 MG GTB DAILY, TAB 06/03/16 Allergies Allergies: Coded Allergies: codeine (Verified Allergy, Severe, Vomitted, 08/14/16) PMhx/Soc History of Surgery: Yes (Extraction brain Hematoma, R knee, GTUBE) Anesthesia Reaction: No Hx Neurological Disorder: No Hx Respiratory Disorders: No (NON HODGKINS LYMPHOMA) Hx Cardiac Disorders: Yes (DM, HTN) Hx Psychiatric Problems: No Hx Miscellaneous Medical Probl: Yes (SDH, GOUT) Hx Alcohol Use: Yes (Former occasionally) Hx Substance Use: No Hx Tobacco Use: No Smoking Status: Never smoker Physical Exam Vitals Vital Signs Date Time Temp Pulse Resp B/P Pulse Ox O2 Delivery O2 Flow Rate FiO2 08/14/16 08:45 78 18 106/63 97 08/14/16 08:03 98.1 74 18 121/64 99 Physical Exam INITIAL VITAL SIGNS: Reviewed by me GENERAL: The patient is well developed and appropriate for usual state of health in no apparent distress HEENT: Left orbital ridge ecchymosis, pupils equal, round, and reactive to light. EOMI. There is no scleral icterus. NECK: C-spine is soft and supple, there is no meningismus. There is no cervical lymphadenopathy. LUNGS: Clear to auscultation bilaterally. There are no rales, wheezes or rhonchi. HEART: Regular rate and rhythm, no murmurs, clicks, rubs or gallops. ABDOMEN: PEG tube, soft, non-tender, non-distended. There are bowel sounds in all four quadrants. No rebound or guarding. EXTREMITIES: There is no peripheral cyanosis or edema. No focal swelling or erythema. NEUROLOGICAL: The patient moves all four extremities with 5/5 strength. Cranial nerves II - XII are intact. Normal gait. Alert and oriented SKIN: There is no apparent rash or petechiae. Genitourinary: Urinary catheter in place HEME/LYMPHATIC: There is no evidence of excessive bruising or lymphedema. PSYCHIATRIC: The patient does not appear anxious or depressed. Result Diagram: 08/14/16 0835 08/14/1635 Results 24 hrs Laboratory Tests Test 08/14/16 08:35 08/14/16 10:06 White Blood Count 27.010^3/ul Red Blood Count 4.7110^6/ul Hemoglobin 13.6g/dl Hematocrit 40.0% Mean Corpuscular Volume 84.9fl Mean Corpuscular Hemoglobin 28.9pg Mean Corpuscular Hemoglobin Concent 34.0g/dl Red Cell Distribution Width 14.5% Platelet Count 32556^3/UL Mean Platelet Volume 10.0fl Prothrombin Time 14.6Sec Prothrombin Time Ratio 1.1 INR International Normalized Ratio 1.14 Activated Partial Thromboplast Time 34.9Sec Sodium Level 140mmol/L Potassium Level 4.3mmol/L Chloride Level 104mmol/L Carbon Dioxide Level 24mmol/L Anion Gap 16 Blood Urea Nitrogen 30mg/dl Creatinine 0.71mg/dl Glucose Level 143mg/dl Calcium Level 10.2mg/dl Troponin I < 0.012ng/ml Urine Color YELLOW Urine Clarity SLIGHTLY CLOUDY Urine pH 6.0 Urine Specific [place] 1.020 Urine Ketones NEGATIVE Urine Nitrite NEGATIVE Urine Bilirubin NEGATIVE Urine Urobilinogen 0.2 E.U./dL Urine Leukocyte Esterase 2+ Urine Microscopic RBC 2-5/HPF Urine Microscopic WBC 5-10/HPF Urine Bacteria FEW Urine Yeast FEW Urine Hemoglobin 1+ Urine Glucose NEGATIVE% Urine Total Protein 1+ Current Medications Medications (Trade) Dose Ordered Sig/Sidney Route PRN Reason Start Time Stop Time Status Last Admin Dose Admin Sodium Chloride 1490 ml 1,490 ml BOLUS OVER 2 HOURS STAT IV* 08/14/16 10:48 08/14/16 10:50 DC Ceftriaxone Sodium (Rocephin) 50 ml @ 100 mls/hr ONCE STAT IVPB 08/14/16 10:48 08/14/16 11:17 Procedures/MDM EKG: Rate/Rhythm: [Normal Sinus Rhythm] QRS, ST, T-waves: [No changes consistent w/ acute ischemia] Impression: [No evidence of ischemia or arrhythmia] Chest X-ray 1V Interpreted by me: Soft Tissue: No acute abnormalities Bones: No acute abnormalities Mediastinum/Cardiac Silhouette/Lungs: [No acute abnormalities] CT head without: 1. No acute intracranial hemorrhage, mass effect or midline shift. 2. No substantial change in bilateral convexity subdural hemorrhage without evidence of acute component. 3. Moderate generalized atrophy. Mild microangiopathic ischemic change. 4. Intracranial atherosclerosis. This 85-year-old male presents to the emergency room for evaluation of a ground- level fall. The patient had no loss of consciousness however he did have some ecchymosis over the left orbital ridge. I did ascertain that this patient had a previous history of brain bleeds. CT the head was obtained which does not show any acute intracranial processes. This patient does have a history of dementia however is alert oriented to person place and time. Lab work was obtained which did show leukocytosis. Chest x-ray was clear, and I did ask the patient's caregiver about his urinary catheter. The patient's caregiver states that his urinary catheter has not been changed in greater than 2 months. We did change a urinary catheter the patient does have white blood cells in the urine and 2+ leukocyte esterase. Blood and urine cultures were obtained, and the patient was started on Rocephin. I have contacted his primary care physician, Dr. Ahn who agrees with admission at this time on her [facility] floor Departure Diagnosis: Primary Impression: Fall with no significant injury Additional Impressions: Acute cystitis Closed head injury Condition: Stable BRETT SILVESTRE August 14, 2016 11:12
[2016-08-14] MEDS ORDERED: ONDANSETRON 4 MG INJ IV PRN ×2 (11:30→13:30)
[2016-08-14] MEDS ORDERED: ACETAMINOPHEN 325 MG TAB PO PRN (11:30)
[2016-08-14 11:36] VITALS: PULSE 66; TEMP 97.4
[2016-08-14 11:46] LABS: LYMPHOCYTES # 2.4 10^3/ul (0.8-2.9); MONOCYTE # 0.8 10^3/ul (0.3-0.9); NEUTROPHIL # 22.7 10^3/ul (1.6-7.5)
[2016-08-14 12:34] VITALS: BP 140/63; RESP 15
[2016-08-14] MEDS ORDERED: NACL 0.9% 3 ML SYG IV SCH (13:30)
[2016-08-14] MEDS ORDERED: FAMOTIDINE 20 MG TAB GTB PRN (13:30)
[2016-08-14] MEDS ORDERED: ACETAMINOPHEN 650MG/20.3ML CUP GTB PRN (14:00)
[2016-08-14] MEDS ORDERED: GLUCOSE GEL 15 GRAM TUBE BUCCAL PRN (14:30)
[2016-08-14] MEDS ORDERED: DEXTROSE 50% 50 ML SYRINGE IV PRN ×2 (14:30)
[2016-08-14] MEDS ORDERED: GLUCAGON 1 MG INJ IM PRN (14:30)
[2016-08-14] MEDS ORDERED: GLUCOSE GEL 15 GRAM TUBE PO PRN ×2 (14:30)
[2016-08-14 15:11] LABS: CREATINE KINASE 42 IU/L (23-200)
[2016-08-14 15:20] LABS: CK-MB 0.94 ng/ml (0.0-2.4)
[2016-08-14 15:24] LABS: TROPONIN-I < 0.012 ng/ml (0.00-0.12)
[2016-08-14] MEDS: metFORMIN 500 MG TAB GTB SCH (17:16)
[2016-08-14] MEDS: INSULIN ASPART [NOVOLOG] 3 ML PEN SC SCH ×2 (17:19→23:28)
--- NOTE | 2016-08-14 20:03 | HP ---
DATE OF ADMISSION: 08/14/2016 REASON FOR ADMISSION: Fall at home with head injury. HISTORY OF PRESENT ILLNESS: This 85-year-old man was in his usual state of health today when this m orning he was reaching for some zinc oxide ointment on the side of his bed. The bed rail was down. As he reached over, he rolled out of bed and fell on the floor injuring the left side of his face. The patient has a history of bilateral subdural hematomas, status post craniotomies. He has been d ebilitated since the subdural hematomas. He is bedridden, but is able to walk some, although his le gs are quite weak. The patient has other medical problems, which I will detail below. The patient is now being seen. He is in his bed and his son is with him. The patient is awake and alert. He a nswers questions appropriately. He is oriented to time and place. The patient does have a history of dysphagia and does have a permanent gastric feeding tube in place. He also has a Shultz catheter in place. The patient was seen in the emergency room today. He did have a CAT scan of the head, wh ich did not show any changes when compared to previous. He has no new intracranial hemorrhage, mass effect, or midline shift. He has the prior subdural hematomas without evidence of acute component. Urine was checked in the emergency room and was leukocyte esterase positive and the patient was pr esumed to have a urinary tract infection. The patient also had an elevated white blood count of 27, 000. PAST MEDICAL HISTORY: Remarkable for gout, hypertension, diabetes mellitus type 2, hyperlipidemia, spinal stenosis, left patellar fracture, elevated liver enzymes, fatty liver, edema, non-Hodgkin lym phoma, bilateral subdural hematomas. Episode of encephalopathy for which she was transferred to [facility] ____ intensive care unit. Etiology of this was never clear. Possible seizures. Since th at time, the patient has been on anti-seizure medications. PAST SURGICAL HISTORY: Remarkable for appendectomy, tonsillectomy, laminectomy, total prostatectomy in 2010, bilateral craniotomies for subdural hematomas in 2014 and 2015. CURRENT MEDICATION: Include the followin. Chlorphentermine maleate 12 mg extended release once a day. 2. Amlodipine 5 mg a day. 3. Clonidine 0.1 mg every 4 hours p.r.n. elevated blood pressure. 4. Spironolactone 25 mg a day. 5. Acetaminophen 500 mg q.6h. 6. Lexapro 10 mg daily. 7. Keppra 500 mg twice a day. 8. Sodium chloride tablets 1 gram down G-tube 3 times a day 9. Famotidine 20 mg a day. 10. Lactobacillus daily. 11. Magnesium oxide 400 mg twice a day. 12. Lantus insulin 10 units at bedtime. 13. Metformin 500 mg twice a day. 14. Vitamin D 2000 units daily. 15. Multivitamins 1 daily. 16. Allopurinol 100 mg daily. FAMILY HISTORY: Father is of coronary artery disease. Mother is of diabetes, hyp ertension. He has siblings with hypertension and diabetes. SOCIAL HISTORY: The patient does not smoke. Drank alcohol previously. PHYSICAL EXAMINATION: GENERAL: At this time, reveals a frail man in no apparent distress. He is awake and alert. HEENT: Head normocephalic. Eyes: Extraocular muscles intact. He has 2 contusions, 1 over the lef t eye and 1 over the left cheek bone. Nose and mouth are normal. NECK: Supple. No neck vein distention. LUNGS: Clear to auscultation. HEART: Regular rhythm. No murmurs, gallops, or rubs. ABDOMEN: Soft, nontender with a G-tube in place. EXTREMITIES: No edema. NEUROLOGIC: He is diffusely weak without any obvious focal neurologic deficits. IMPRESSION: 1. Fall out of bed today with left-sided facial contusions. CAT scan showed old subdural hematomas , nothing new. 2. Urinary tract infection with elevated white blood count. The patient has indwelling Shultz zena ter. 3. Type 2 diabetes mellitus. 4. Debility with being bedridden and unable to ambulate on his own. 5. Type 2 diabetes mellitus, insulin-dependent. 6. Hypertension. 7. History of non-Hodgkin lymphoma. 8. History of bilateral subdural hematomas, status post craniotomy. PLAN: 1. Resume routine medications. 2. Tube feeding. 3. Broad spectrum antibiotics until cultures are available. 4. We will continue NO CODE status as per the patient and family. 5. Check labs in the morning. Dictated By: MACIEJ VIDES MD, ND/NTS Conf#: [id number] DID#: [id number]
[2016-08-14] MEDS ORDERED: SODIUM CHLORIDE 1 GM TAB GTB SCH (21:00)
[2016-08-14] MEDS: LEVETIRACETAM 500 MG TAB GTB SCH (21:03)
[2016-08-14] MEDS: MAGNESIUM OXIDE 400 MG TAB GTB SCH (21:03)
[2016-08-14] MEDS: INSULIN GLARGINE [LANtus] 3 ML PEN SC SCH (21:05)
[2016-08-14 21:19] LABS: CREATINE KINASE 45 IU/L (23-200)
[2016-08-14 21:36] LABS: TROPONIN-I < 0.012 ng/ml (0.00-0.12)
[2016-08-15] MEDS: ACCU-CHEK XX SCH (02:00)
[2016-08-15] MEDS: metFORMIN 500 MG TAB GTB SCH ×2 (05:15→17:04)
[2016-08-15] MEDS: INSULIN ASPART [NOVOLOG] 3 ML PEN SC SCH ×3 (05:15→17:07)
[2016-08-15 08:13] VITALS: BP 142/78; RESP 20
[2016-08-15] MEDS: MAGNESIUM OXIDE 400 MG TAB GTB SCH ×2 (08:37→21:21)
[2016-08-15] MEDS: SPIRONOLACTONE 25 MG TAB GTB SCH (08:37)
[2016-08-15] MEDS: ESCITALOPRAM 10 MG TAB GTB SCH (08:37)
[2016-08-15] MEDS: CHOLECALCIFEROL 2,000 UNIT CAP PO SCH (08:37)
[2016-08-15] MEDS: MULTIVITAMINS/MINERALS TAB PO SCH (08:37)
[2016-08-15] MEDS: AMLODIPINE 5 MG TAB GTB SCH (08:37)
[2016-08-15] MEDS: LEVETIRACETAM 500 MG TAB GTB SCH ×2 (08:37→21:21)
[2016-08-15] MEDS: ALLOPURINOL 100 MG TAB GTB SCH (08:37)
[2016-08-15] MEDS ORDERED: LACTOBACILLUS COMBINATION NO 4 GTB SCH (09:00)
[2016-08-15] MEDS ORDERED: [UNRECOGNIZED DRUG - OTHER] GTB SCH (09:00)
[2016-08-15] MEDS: CEFTRIAXONE 1 GM/50 ML (PMX) 50 ML IVPB SCH (10:13)
[2016-08-15 11:38] LABS: ADD SCAN DIFF NO
[2016-08-15 11:40] LABS: BASOPHIL # 0.1 10^3/ul (0.0-0.1); BASOPHILS % 0.4 % (0.0-2.0); EOSINOPHILS # 0.2 10^3/ul (0.0-0.5); EOSINOPHILS % 1.7 % (0.0-7.0); HEMATOCRIT 35.7 % (42.0-52.0); LYMPHOCYTES # 1.7 10^3/ul (0.8-2.9); LYMPHOCYTES % 12.6 % (15.0-51.0); MEAN CORPUSCULAR HEMOGLOBIN 28.7 pg (29.0-33.0); MEAN CORPUSCULAR HGB CONC 33.6 g/dl (32.0-37.0); MEAN CORPUSCULAR VOLUME 85.4 fl (82.0-101.0); MEAN PLATELET VOLUME 9.4 fl (7.4-10.4); MONOCYTE # 0.6 10^3/ul (0.3-0.9); MONOCYTES % 4.2 % (0.0-11.0); NEUTROPHIL # 10.5 10^3/ul (1.6-7.5); NEUTROPHILS % 80.6 % (39.0-77.0); PLATELET COUNT 242 10^3/UL (140-415); RED BLOOD COUNT 4.18 10^6/ul (4.70-6.10); RED CELL DISTRIBUTION WIDTH 14.6 % (11.5-14.5); WHITE BLOOD COUNT 13.1 10^3/ul (4.8-10.8)
[2016-08-15 12:01] LABS: ALBUMIN 3.5 g/dl (3.3-4.9); POTASSIUM 3.5 mmol/L (3.5-5.1)
[2016-08-15 12:04] LABS: ALBUMIN/GLOBULIN RATIO 1.02; BILIRUBIN,INDIRECT 0.3 mg/dl (0-1.1); BILIRUBIN,TOTAL 0.3 mg/dl (0.2-1.3); CALCIUM 9.1 mg/dl (8.4-10.2); CREATININE 0.59 mg/dl (0.61-1.24); TOTAL PROTEIN 6.9 g/dl (6.1-8.1)
[2016-08-15 12:05] LABS: MAGNESIUM 1.6 mg/dl (1.7-2.5)
--- NOTE | 2016-08-15 13:48 | PN ---
Date/Time of Note Date/Time of Note DATE: 08/15/16 TIME: 13:41 Assessment/Plan VTE Prophylaxis VTE Prophylaxis Intervention: SCD's Lines/Catheters [facility] Saline Lock Urinary Cath still in place: Yes Reason Cath still needed: urinary retention Assessment/Plan Chief Complaint/Hosp Course 1. Fall from bed with head trauma , CT of head , nothing new . 2. UTI , he is growing alison albicans , will start diflucan 3. DM on insulin 4. HTN 5. h/o bilateral subdural hematomas 6. dementia 7. h/o NHL , in remission . Problems: Subjective 24 Hr Interval Summary Free Text/Dictation He is sleeping . He rouses easily to verbal stimuli and is responsive . Constitutional: no complaints Cardiovascular: no complaints Gastrointestinal: no complaints Genitourinary: no complaints Exam/Review of Systems Vital Signs Vitals Vital Signs Date Time Temp Pulse Resp B/P Pulse Ox O2 Delivery O2 Flow Rate FiO2 08/15/16 08:13 97.7 60 20 142/78 96 08/14/16 11:36 Room Air Intake and Output 08/14/16 08/14/16 08/15/16 15:00 23:00 07:00 Intake Total 130 ml 110 ml 980 ml Output Total 200 ml 800 ml Balance 130 ml -90 ml 180 ml Exam Constitutional: alert, frail Psych: no complaints Respiratory: clear to auscultation, normal air movement Cardiovascular: regular rate and rhythm Gastrointestinal: non-tender, soft Musculoskeletal: nl extremities to inspection Results Result Diagram: 08/15/16 1120 08/15/16 1120 Results 24 hrs Laboratory Tests Test 08/14/16 14:46 08/14/16 16:55 08/14/16 17:14 08/14/16 20:45 Lactic Acid Level 1.3 1.1 Creatine Kinase 42 45 Creatine Kinase Index 2.2 2.2 Creatinine Kinase MB (Mass) 0.94 1.00 Troponin I < 0.012 < 0.012 Bedside Glucose 149 Test 08/14/16 21:03 08/15/16 05:08 08/15/16 11:20 08/15/16 11:30 Bedside Glucose 121 103 129 White Blood Count 13.1 #H Red Blood Count 4.18 L Hemoglobin 12.0 L Hematocrit 35.7 L Mean Corpuscular Volume 85.4 Mean Corpuscular Hemoglobin 28.7 L Mean Corpuscular Hemoglobin Concent 33.6 Red Cell Distribution Width 14.6 H Platelet Count 242 Mean Platelet Volume 9.4 Neutrophils % 80.6 H Lymphocytes % 12.6 L Monocytes % 4.2 Eosinophils % 1.7 Basophils % 0.4 Nucleated Red Blood Cells % 0.0 Neutrophils # 10.5 H Lymphocytes # 1.7 Monocytes # 0.6 Eosinophils # 0.2 Basophils # 0.1 Nucleated Red Blood Cells # 0.0 Sodium Level 138 Potassium Level 3.5 Chloride Level 102 Carbon Dioxide Level 25 Anion Gap 15 Blood Urea Nitrogen 25 H Creatinine 0.59 L Glucose Level 125 Hemoglobin A1c 5.7 Calcium Level 9.1 Magnesium Level 1.6 L Total Bilirubin 0.3 Direct Bilirubin 0.00 Indirect Bilirubin 0.3 Aspartate Amino Transf (AST/SGOT) 17 Alanine Aminotransferase (ALT/SGPT) 28 Alkaline Phosphatase 85 Total Protein 6.9 Albumin 3.5 Globulin 3.40 H Albumin/Globulin Ratio 1.02 Medications Medications Current Medications Ondansetron HCl (Zofran Inj) 4 mg Q6H PRN IV NAUSEA AND/OR VOMITING; Start 01/21 at 13:30 Allopurinol (Zyloprim) 100 mg DAILY GTB Last administered on 08/15/16 08:37; Admin Dose 100 MG; Start 08/15/16 at 09:00 Amlodipine Besylate (Norvasc) 5 mg DAILY GTB Last administered on 08/15/16 08: 37; Admin Dose 5 MG; Start 08/15/16 at 09:00 Clonidine (Catapres) 0.1 mg Q4H PRN GTB SBP GREATER THAN 160; Start 08/14/16 at 13:30 Escitalopram Oxalate (Lexapro) 10 mg DAILY GTB Last administered on 08/15/16 08:37; Admin Dose 10 MG; Start 08/15/16 at 09:00 Famotidine (Pepcid) 20 mg DAILY PRN GTB GASTROINTESTINAL UPSET; Start 08/14/16 at 13:30 Insulin Glargine (Lantus) 10 unit QHS SC Last administered on 08/14/16 21:05; Admin Dose 10 UNIT; Start 08/14/16 at 21:00 Levetiracetam (Keppra) 500 mg BID GTB Last administered on 08/15/16 08:37; Admin Dose 500 MG; Start 08/14/16 at 21:00 Magnesium Oxide (Mag-Ox 400) 400 mg BID GTB Last administered on 08/15/16 08: 37; Admin Dose 400 MG; Start 08/14/16 at 21:00 Spironolactone (Aldactone) 25 mg DAILY GTB Last administered on 08/15/16 08:37 ; Admin Dose 25 MG; Start 08/15/16 at 09:00 Cholecalciferol (Vitamin D) 2,000 unit DAILY PO Last administered on 08/15/16 08:37; Admin Dose 2,000 UNIT; Start 08/15/16 at 09:00 Multivitamins/ Minerals (Theragran-M) 1 tab DAILY PO Last administered on 08:37; Admin Dose 1 TAB; Start 08/15/16 at 09:00 Acetaminophen (Tylenol Liquid) 650 mg Q4H PRN GTB PAIN AND OR ELEVATED TEMP; Start 08/14/16 at 14:00 Insulin Aspart (Novolog Insulin Pen) NOVOLOG *MILD* ALGORITHM Q6 SC Last administered on 08/14/16 17:19; Admin Dose 1 UNIT; Start 08/14/16 at 18:00 Diagnostic Test (Pha) 1 ea 1 ea 02 XX ; Start 08/15/16 at 02:00 Ceftriaxone Sodium (Rocephin) 50 ml @ 100 mls/hr Q24H IVPB Last administered on 08/15/16 10:13; Admin Dose 100 MLS/HR; Start 08/15/16 at 11:00 Miscellaneous Information 1 ea NOTE XX ; Start 08/14/16 at 14:30 Glucose (Glutose) 15 gm Q15M PRN PO DECREASED GLUCOSE; Start 08/14/16 at 14:30 Glucose (Glutose) 22.5 gm Q15M PRN PO DECREASED GLUCOSE; Start 08/14/16 at 14: 30 Dextrose (D50w Syringe) 25 ml Q15M PRN IV DECREASED GLUCOSE; Start 08/14/16 at 14:30 Dextrose (D50w Syringe) 50 ml Q15M PRN IV DECREASED GLUCOSE; Start 08/14/16 at 14:30 Glucagon (Glucagen) 1 mg Q15M PRN IM DECREASED GLUCOSE; Start 08/14/16 at 14:30 Glucose (Glutose) 15 gm Q15M PRN BUCCAL DECREASED GLUCOSE; Start 08/14/16 at 14 :30 MACIEJ VIDES MD August 15, 2016 13:48
[2016-08-15] MEDS: FLUCONAZOLE 100 MG TAB NGT SCH (14:20)
[2016-08-15 20:35] VITALS: BP 129/66; RESP 18
[2016-08-15] MEDS: INSULIN GLARGINE [LANtus] 3 ML PEN SC SCH (21:23)
[2016-08-16] MEDS: ACCU-CHEK XX SCH ×2 (02:00→23:42)
[2016-08-16] MEDS: INSULIN ASPART [NOVOLOG] 3 ML PEN SC SCH ×5 (06:00→23:42)
[2016-08-16] MEDS: metFORMIN 500 MG TAB GTB SCH ×2 (06:09→18:29)
[2016-08-16 07:45] VITALS: BP 126/64; RESP 18
[2016-08-16] MEDS: MULTIVITAMINS/MINERALS TAB PO SCH (09:13)
[2016-08-16] MEDS: MAGNESIUM OXIDE 400 MG TAB GTB SCH ×2 (09:13→21:07)
[2016-08-16] MEDS: LEVETIRACETAM 500 MG TAB GTB SCH ×2 (09:13→21:07)
[2016-08-16] MEDS: CHOLECALCIFEROL 2,000 UNIT CAP PO SCH (09:13)
[2016-08-16] MEDS: FLUCONAZOLE 100 MG TAB NGT SCH (09:13)
[2016-08-16] MEDS: ALLOPURINOL 100 MG TAB GTB SCH (09:13)
[2016-08-16] MEDS: AMLODIPINE 5 MG TAB GTB SCH (09:14)
[2016-08-16] MEDS: SPIRONOLACTONE 25 MG TAB GTB SCH (09:14)
[2016-08-16] MEDS: ESCITALOPRAM 10 MG TAB GTB SCH (09:14)
[2016-08-16] MEDS: CEFTRIAXONE 1 GM/50 ML (PMX) 50 ML IVPB SCH (11:25)
--- NOTE | 2016-08-16 13:33 | PN ---
Date/Time of Note Date/Time of Note DATE: 08/16/16 TIME: 13:27 Assessment/Plan VTE Prophylaxis VTE Prophylaxis Intervention: other Lines/Catheters [facility] Saline Lock Urinary Cath still in place: No Reason Cath still needed: urinary retention Assessment/Plan Chief Complaint/Hosp Course 1. Fall from bed with head trauma , CT of head , no change from previous CT scans .. 2. UTI , he is growing alison albicans , will start diflucan 3. DM on insulin 4. HTN 5. h/o bilateral subdural hematomas 6. dementia 7. h/o NHL , in remission . 8 D/C planning Problems: Subjective 24 Hr Interval Summary Free Text/Dictation He is awake and responsive . No complaints . Constitutional: improved, no complaints Respiratory: no complaints Cardiovascular: no complaints Gastrointestinal: no complaints Exam/Review of Systems Vital Signs Vitals Vital Signs Date Time Temp Pulse Resp B/P Pulse Ox O2 Delivery O2 Flow Rate FiO2 08/16/16 07:45 97.9 64 18 126/64 96 08/14/16 11:36 Room Air Intake and Output 08/15/16 08/15/16 08/16/16 15:00 23:00 07:00 Intake Total 50 ml 960 ml Output Total 400 ml Balance 50 ml 560 ml Exam Constitutional: alert, frail Respiratory: clear to auscultation, normal air movement Cardiovascular: regular rate and rhythm Gastrointestinal: soft Musculoskeletal: nl extremities to inspection Results Result Diagram: 08/15/16 1120 08/15/16 1120 Results 24 hrs Laboratory Tests Test 08/15/16 17:02 08/15/16 21:20 08/16/16 00:25 08/16/16 06:08 Bedside Glucose 158 135 137 129 Test 08/16/16 11:33 Bedside Glucose 109 Medications Medications Current Medications Ondansetron HCl (Zofran Inj) 4 mg Q6H PRN IV NAUSEA AND/OR VOMITING; Start 01/21 at 13:30 Allopurinol (Zyloprim) 100 mg DAILY GTB Last administered on 08/16/16 09:13; Admin Dose 100 MG; Start 08/15/16 at 09:00 Amlodipine Besylate (Norvasc) 5 mg DAILY GTB Last administered on 08/16/16 09: 14; Admin Dose 5 MG; Start 08/15/16 at 09:00 Clonidine (Catapres) 0.1 mg Q4H PRN GTB SBP GREATER THAN 160; Start 08/14/16 at 13:30 Escitalopram Oxalate (Lexapro) 10 mg DAILY GTB Last administered on 08/16/16 09:14; Admin Dose 10 MG; Start 08/15/16 at 09:00 Famotidine (Pepcid) 20 mg DAILY PRN GTB GASTROINTESTINAL UPSET; Start 08/14/16 at 13:30 Insulin Glargine (Lantus) 10 unit QHS SC Last administered on 08/15/16 21:23; Admin Dose 10 UNIT; Start 08/14/16 at 21:00 Levetiracetam (Keppra) 500 mg BID GTB Last administered on 08/16/16 09:13; Admin Dose 500 MG; Start 08/14/16 at 21:00 Magnesium Oxide (Mag-Ox 400) 400 mg BID GTB Last administered on 08/16/16 09: 13; Admin Dose 400 MG; Start 08/14/16 at 21:00 Spironolactone (Aldactone) 25 mg DAILY GTB Last administered on 08/16/16 09:14 ; Admin Dose 25 MG; Start 08/15/16 at 09:00 Cholecalciferol (Vitamin D) 2,000 unit DAILY PO Last administered on 08/16/16 09:13; Admin Dose 2,000 UNIT; Start 08/15/16 at 09:00 Multivitamins/ Minerals (Theragran-M) 1 tab DAILY PO Last administered on 09:13; Admin Dose 1 TAB; Start 08/15/16 at 09:00 Acetaminophen (Tylenol Liquid) 650 mg Q4H PRN GTB PAIN AND OR ELEVATED TEMP; Start 08/14/16 at 14:00 Insulin Aspart (Novolog Insulin Pen) NOVOLOG *MILD* ALGORITHM Q6 SC Last administered on 08/15/16 17:07; Admin Dose 1 UNIT; Start 08/14/16 at 18:00 Diagnostic Test (Pha) 1 ea 1 ea 02 XX ; Start 08/15/16 at 02:00 Ceftriaxone Sodium (Rocephin) 50 ml @ 100 mls/hr Q24H IVPB Last administered on 08/16/16 11:25; Admin Dose 100 MLS/HR; Start 08/15/16 at 11:00 Miscellaneous Information 1 ea NOTE XX ; Start 08/14/16 at 14:30 Glucose (Glutose) 15 gm Q15M PRN PO DECREASED GLUCOSE; Start 08/14/16 at 14:30 Glucose (Glutose) 22.5 gm Q15M PRN PO DECREASED GLUCOSE; Start 08/14/16 at 14: 30 Dextrose (D50w Syringe) 25 ml Q15M PRN IV DECREASED GLUCOSE; Start 08/14/16 at 14:30 Dextrose (D50w Syringe) 50 ml Q15M PRN IV DECREASED GLUCOSE; Start 08/14/16 at 14:30 Glucagon (Glucagen) 1 mg Q15M PRN IM DECREASED GLUCOSE; Start 08/14/16 at 14:30 Glucose (Glutose) 15 gm Q15M PRN BUCCAL DECREASED GLUCOSE; Start 08/14/16 at 14 :30 Fluconazole (Diflucan) 100 mg DAILY NGT Last administered on 08/16/16t 09:13; Admin Dose 100 MG; Start 08/15/16 at 14:00 MACIEJ VIDES MD August 16, 2016 13:33
[2016-08-16] MEDS ORDERED: MAGNESIUM SULFATE 2 GM/50 ML 50 ML IVPB ONE (14:30)
[2016-08-16 20:43] VITALS: BP 158/75; RESP 19
[2016-08-16] MEDS: INSULIN GLARGINE [LANtus] 3 ML PEN SC SCH (21:08)
[2016-08-17] MEDS: metFORMIN 500 MG TAB GTB SCH ×2 (05:56→18:00)
[2016-08-17] MEDS: INSULIN ASPART [NOVOLOG] 3 ML PEN SC SCH ×3 (05:56→18:00)
[2016-08-17 08:24] VITALS: BP 137/67; RESP 20
[2016-08-17 09:31] LABS: ADD SCAN DIFF NO
[2016-08-17 09:32] LABS: BASOPHIL # 0.1 10^3/ul (0.0-0.1); BASOPHILS % 0.6 % (0.0-2.0); EOSINOPHILS # 0.6 10^3/ul (0.0-0.5); EOSINOPHILS % 7.4 % (0.0-7.0); HEMATOCRIT 38.5 % (42.0-52.0); HEMOGLOBIN 13.2 g/dl (14.0-18.0); LYMPHOCYTES # 1.9 10^3/ul (0.8-2.9); LYMPHOCYTES % 22.8 % (15.0-51.0); MEAN CORPUSCULAR HEMOGLOBIN 28.8 pg (29.0-33.0); MEAN CORPUSCULAR HGB CONC 34.3 g/dl (32.0-37.0); MEAN CORPUSCULAR VOLUME 84.1 fl (82.0-101.0); MEAN PLATELET VOLUME 9.6 fl (7.4-10.4); MONOCYTE # 0.5 10^3/ul (0.3-0.9); MONOCYTES % 5.9 % (0.0-11.0); NEUTROPHIL # 5.1 10^3/ul (1.6-7.5); NEUTROPHILS % 61.8 % (39.0-77.0); PLATELET COUNT 251 10^3/UL (140-415); RED BLOOD COUNT 4.58 10^6/ul (4.70-6.10); RED CELL DISTRIBUTION WIDTH 14.5 % (11.5-14.5); WHITE BLOOD COUNT 8.3 10^3/ul (4.8-10.8)
[2016-08-17] MEDS: AMLODIPINE 5 MG TAB GTB SCH (09:32)
[2016-08-17] MEDS: MAGNESIUM OXIDE 400 MG TAB GTB SCH (09:32)
[2016-08-17] MEDS: LEVETIRACETAM 500 MG TAB GTB SCH (09:32)
[2016-08-17] MEDS: ESCITALOPRAM 10 MG TAB GTB SCH (09:32)
[2016-08-17] MEDS: SPIRONOLACTONE 25 MG TAB GTB SCH (09:32)
[2016-08-17] MEDS: ALLOPURINOL 100 MG TAB GTB SCH (09:32)
[2016-08-17] MEDS: MULTIVITAMINS/MINERALS TAB PO SCH (09:32)
[2016-08-17] MEDS: CHOLECALCIFEROL 2,000 UNIT CAP PO SCH (09:33)
[2016-08-17] MEDS: FLUCONAZOLE 100 MG TAB NGT SCH (09:33)
[2016-08-17 09:54] LABS: ALBUMIN 3.5 g/dl (3.3-4.9); CALCIUM 9.2 mg/dl (8.4-10.2); CREATININE 0.6 mg/dl (0.61-1.24); MAGNESIUM 1.9 mg/dl (1.7-2.5); POTASSIUM 4.2 mmol/L (3.5-5.1)
--- NOTE | 2016-08-17 16:04 | PN ---
Date/Time of Note Date/Time of Note DATE: 08/17/16 TIME: 16:03 Assessment/Plan VTE Prophylaxis VTE Prophylaxis Intervention: SCD's Lines/Catheters IV Catheter Type (from Nrs): Saline Lock Urinary Cath still in place: Yes Reason Cath still needed: urinary retention Assessment/Plan Assessment/Plan d/c dictation done [id number] Exam/Review of Systems Vital Signs Vitals Vital Signs Date Time Temp Pulse Resp B/P Pulse Ox O2 Delivery O2 Flow Rate FiO2 08/17/16 08:24 98.4 58 20 137/67 94 08/14/16 11:36 Room Air Intake and Output 08/16/16 08/16/16 08/17/16 15:00 23:00 07:00 Intake Total 950 ml 800 ml 800 ml Output Total 400 ml 600 ml 900 ml Balance 550 ml 200 ml -100 ml Results Result Diagram: 08/17/1615 08/17/1615 Results 24 hrs Laboratory Tests Test 08/16/16 18:06 08/16/16 21:06 08/16/16 23:41 08/17/16 05:55 Bedside Glucose 138 126 101 111 Test 08/17/16 09:15 08/17/16 12:23 White Blood Count 8.3 # Red Blood Count 4.58 L Hemoglobin 13.2 L Hematocrit 38.5 L Mean Corpuscular Volume 84.1 Mean Corpuscular Hemoglobin 28.8 L Mean Corpuscular Hemoglobin Concent 34.3 Red Cell Distribution Width 14.5 Platelet Count 251 Mean Platelet Volume 9.6 Neutrophils % 61.8 Lymphocytes % 22.8 Monocytes % 5.9 Eosinophils % 7.4 H Basophils % 0.6 Nucleated Red Blood Cells % 0.0 Neutrophils # 5.1 Lymphocytes # 1.9 Monocytes # 0.5 Eosinophils # 0.6 H Basophils # 0.1 Nucleated Red Blood Cells # 0.0 Sodium Level 132 L Potassium Level 4.2 Chloride Level 102 Carbon Dioxide Level 24 Anion Gap 10 # Blood Urea Nitrogen 20 Creatinine 0.60 L Glucose Level 119 Calcium Level 9.2 Magnesium Level 1.9 Total Bilirubin 0.0 L Direct Bilirubin 0.00 Indirect Bilirubin 0.0 Aspartate Amino Transf (AST/SGOT) 21 Alanine Aminotransferase (ALT/SGPT) 47 Alkaline Phosphatase 101 Total Protein 7.0 Albumin 3.5 Globulin 3.50 H Albumin/Globulin Ratio 1.00 Bedside Glucose 139 Medications Medications Current Medications Ondansetron HCl (Zofran Inj) 4 mg Q6H PRN IV NAUSEA AND/OR VOMITING; Start 01/21 at 13:30 Allopurinol (Zyloprim) 100 mg DAILY GTB Last administered on 08/17/16 09:32; Admin Dose 100 MG; Start 08/15/16 at 09:00 Amlodipine Besylate (Norvasc) 5 mg DAILY GTB Last administered on 08/17/16 09: 32; Admin Dose 5 MG; Start 08/15/16 at 09:00 Clonidine (Catapres) 0.1 mg Q4H PRN GTB SBP GREATER THAN 160; Start 08/14/16 at 13:30 Escitalopram Oxalate (Lexapro) 10 mg DAILY GTB Last administered on 08/17/16 09:32; Admin Dose 10 MG; Start 08/15/16 at 09:00 Famotidine (Pepcid) 20 mg DAILY PRN GTB GASTROINTESTINAL UPSET; Start 08/14/16 at 13:30 Insulin Glargine (Lantus) 10 unit QHS SC Last administered on 08/16/16 21:08; Admin Dose 10 UNIT; Start 08/14/16 at 21:00 Levetiracetam (Keppra) 500 mg BID GTB Last administered on 08/17/16 09:32; Admin Dose 500 MG; Start 08/14/16 at 21:00 Magnesium Oxide (Mag-Ox 400) 400 mg BID GTB Last administered on 08/17/16 09: 32; Admin Dose 400 MG; Start 08/14/16 at 21:00 Spironolactone (Aldactone) 25 mg DAILY GTB Last administered on 08/17/16 09:32 ; Admin Dose 25 MG; Start 08/15/16 at 09:00 Cholecalciferol (Vitamin D) 2,000 unit DAILY PO Last administered on 08/17/16 09:33; Admin Dose 2,000 UNIT; Start 08/15/16 at 09:00 Multivitamins/ Minerals (Theragran-M) 1 tab DAILY PO Last administered on 09:32; Admin Dose 1 TAB; Start 08/15/16 at 09:00 Acetaminophen (Tylenol Liquid) 650 mg Q4H PRN GTB PAIN AND OR ELEVATED TEMP; Start 08/14/16 at 14:00 Insulin Aspart (Novolog Insulin Pen) NOVOLOG *MILD* ALGORITHM Q6 SC Last administered on 08/15/16 17:07; Admin Dose 1 UNIT; Start 08/14/16 at 18:00 Diagnostic Test (Pha) (Accu-Chek) 1 ea 02 XX ; Start 08/15/16 at 02:00 Miscellaneous Information 1 ea NOTE XX ; Start 08/14/16 at 14:30 Glucose (Glutose) 15 gm Q15M PRN PO DECREASED GLUCOSE; Start 08/14/16 at 14:30 Glucose (Glutose) 22.5 gm Q15M PRN PO DECREASED GLUCOSE; Start 08/14/16 at 14: 30 Dextrose (D50w Syringe) 25 ml Q15M PRN IV DECREASED GLUCOSE; Start 08/14/16 at 14:30 Dextrose (D50w Syringe) 50 ml Q15M PRN IV DECREASED GLUCOSE; Start 08/14/16 at 14:30 Glucagon (Glucagen) 1 mg Q15M PRN IM DECREASED GLUCOSE; Start 08/14/16 at 14:30 Glucose (Glutose) 15 gm Q15M PRN BUCCAL DECREASED GLUCOSE; Start 08/14/16 at 14 :30 Fluconazole (Diflucan) 100 mg DAILY NGT Last administered on 08/17/16 09:33; Admin Dose 100 MG; Start 08/15/16 at 14:00 ALHAJI SALVADOR MD August 17, 2016 16:04
[2016-08-17 21:27] VITALS: BP 149/76; RESP 18
--- NOTE | 2016-08-18 03:34 | DS ---
DATE OF ADMISSION: 08/16/2016 DATE OF DISCHARGE: 08/17/2016 REASON FOR ADMISSION 1. Status post mechanical fall. 2. Toxic metabolic encephalopathy secondary to urinary tract infection. 3. Urinary tract infection. 4. Type 2 diabetes. 5. Debility with bedridden status. 6. Hypertension. 7. History of non-Hodgkin's lymphoma in remission. DISCHARGE DIAGNOSES: 1. Status post mechanical fall. 2. Toxic metabolic encephalopathy secondary to urinary tract infection. 3. Urinary tract infection. 4. Type 2 diabetes. 5. Debility with bedridden status. 6. Hypertension. 7. History of non-Hodgkin's lymphoma in remission. CONSULTANTS ON THE CASE: Dr. Gloria from emergency medicine. PERTINENT STUDIES PERFORMED DURING HOSPITALIZATION: 1. On 08/14/2016, the patient had a chest x-ray that shows scattered atelectasis throughout the right and left lung field. 2. On 08/14/2016, CT scan of the brain without contrast reveals no acute intracranial hemorrhage, mass effect or midline shift. There is generalized moderate atrophy. HISTORY OF PRESENT ILLNESS: The patient is an 85-year-old gentleman who has a mild cognitive impairment, bedbound status, has history of non-Hodgkin's lymphoma status post treatment, currently in remission, has history of mechanical fall with bilateral subdural hematomas and status post craniotomies 1 year prior presented to the ED with confusion, status post mechanical fall where he injured his face. History obtained through H and P. The patient was on the side rail, he leaned over and he fell onto the floor. The patient was seen and evaluated and was admitted to the hospital for further evaluation. The patient did have signs of sepsis with leukocytosis of 27,000. No fevers and no abnormalities. HOSPITAL COURSE: By problem list. 1. Status post mechanical fall with head injury. The patient had a CT scan that did not show any evidence of intracranial bleeding. Of note, the patient does have a history of subdural hematomas that were old status post craniotomy. The patient was considered stable for discharge. There is no evidence of increasing confusion or altered mental status. 2. Toxic metabolic encephalopathy, likely associated with urinary tract infection. The patient was found to have funguria and was treated with Diflucan and leukocytosis resolved. Mental status improved. The patient is currently at his baseline with moderate cognitive impairment. 3. Type 2 diabetes was given random blood sugar control during hospitalization. 4. Generalized debility, unable to ambulate on his own, have fall precaution. The patient's family is equipped to taking care of him, had a bed and equipment. 5. Hypertension. Continue home blood pressure medications. 6. History of non-Hodgkin lymphoma currently stabilized. The patient discharged with all previous medications. Please see admission medication list for further details. NEW MEDICATIONS: The patient discharged with Diflucan 100 mg via G-tube once a day. EDUCATION: When provided education, the patient's son, Sam, phone number [phone] over the phone regarding hospitalization, need for hospitalization and appropriateness of followup. FOLLOWUP: The patient will follow up with Dr. Ahn within 1 week for further evaluation and treatment. CONDITION ON DISCHARGE: Considered stable. CODE STATUS: The patient is DNR/DNI. Dictated By: ALHAJI JACOBSON/MARTINEZ Conf#: [id number] DID#: [id number]
== END 2016-08-17 20:40 | disposition home or self-care (01) | DRG 92 ==
LOC: FTE 07:44 → PP2 11:56 → OBSVTOIN 08-16 14:05
PROVIDERS: ADMIT Internal Medicine; ATTEND Internal Medicine
DX: G92 Toxic encephalopathy (principal); B37.49 Other urogenital candidiasis; Z93.1 Gastrostomy status; F03.90 Unspecified dementia, unspecified severity, without behavioral disturbance, psychotic disturbance, mood disturbance, and anxiety; E11.9 Type 2 diabetes mellitus without complications; I10 Essential (primary) hypertension; S00.83XA Contusion of other part of head, initial encounter; S00.81XA Abrasion of other part of head, initial encounter; M1A.9XX0 Chronic gout, unspecified, without tophus (tophi); W06.XXXA Fall from bed, initial encounter; W01.0XXA Fall on same level from slipping, tripping and stumbling without subsequent striking against object, initial encounter; Z79.4 Long term (current) use of insulin; Y92.013 Bedroom of single-family (private) house as the place of occurrence of the external cause; Y93.89 Activity, other specified; Y99.8 Other external cause status; Z91.81 History of falling; Z85.72 Personal history of non-Hodgkin lymphomas; Z74.01 Bed confinement status
CPT/HCPCS: 36415; 70450; 71010; 80048; 80053; 81001; 81003; 82550; 82553; 82962; 83036; 83605; 83735; 84484; 85025; 85610; 85730; 87040; 87075; 87086; 93005; 96365; G0378; J0696; J1815; J2405; J3475; J7030

== ENCOUNTER 2016-12-10 22:23 | Emergency (ER) | payer MEDICARE, OTHER ==
[~2016-12-10] VITALS: Ht 160 cm; Wt 58.0 kg
[~2016-12-10 22:23] MED LIST changes: +ESCI10TA GTB; +FAMO20TA18 GTB; +SODI1TAB2 GTB; -SPIR100T31 GTB; +SPIR25TA GTB
[2016-12-10 22:28] VITALS: Ht 160 cm; Wt 58.0 kg
--- NOTE | 2016-12-10 23:01 | ERD ---
ER Documentation Chief Complaint Date/Time DATE: 12/10/16 TIME: 22:56 Chief Complaint unable to cath for 12 hours HPI This 86-year-old male patient was brought into emergency department by son and [id number] for not being able to obtain urine from straight cath. Patient has a complex medical history including septic shock, and a prolonged hospitalization. Patient reports that he had a Shultz catheter in place for 12 months has just had catheter discharge family is doing a an in and out catheter every 12 hours. Patient has renal disease and is on a strict fluid restriction. Patient has history of chronic UTIs suspected colonization. Denies nausea, vomiting, fever, back pain or chest pain. ROS All systems reviewed and are negative except as per history of present illness. Medications Home Meds Active Scripts Ciprofloxacin Hcl* (Ciprofloxacin Hcl*) 500 Mg Tablet, 500 MG PO BID for 10 Days , TAB Prov:YINKA IBARRACooper 12/15/16 Reported Medications Sodium Chloride* (Sodium Chloride*) 1 Gm Tablet, 1 GM GTB TID, TAB 08/14/16 Famotidine* (Famotidine*) 20 Mg Tablet, 20 MG GTB BID Y for GASTROINTESTINAL UPSET, #60 TAB 08/14/16 Escitalopram Oxalate* (Lexapro*) 10 Mg Tablet, 10 MG GTB DAILY, #30 TAB 08/14/16 Spironolactone* (Aldactone*) 25 Mg Tablet, 25 MG GTB DAILY, #30 TAB 08/14/16 Insulin Glargine* (Lantus*) 100 Unit/Ml Soln, 10 UNIT SC QHS, #1 VIAL 08/14/16 Chlorpheniramine Maleate (CHLORPHENIRAMINE MALEATE) 12 Mg Tablet.er, 12 MG GTB for allergy relief, TAB 06/03/16 Lactobacillus Combination No.4 (SENIOR PROBIOTIC) 1 Each Capsule, 1 EACH GTB DAILY, CAP 06/03/16 Acetaminophen* (Tylophen*) 500 Mg Capsule, 500 MG GTB Q6H Y for PAIN LEVEL 4-6, TAB 06/03/16 Multivit with Iron-Minerals (Spectravite Senior) 1 Each Tablet, 1 EACH GTB DAILY , TAB 06/03/16 Clonidine Hcl* (Clonidine Hcl*) 0.1 Mg Tab, 0.1 MG GTB Q4H Y for ELEVATED BLOOD PRESSURE, TAB 06/03/16 Cholecalciferol (Vitamin D3) (Vitamin D3) 4,000 Unit Capsule, 2000 UNIT GTB DAILY, CAP 06/03/16 Amlodipine Besylate* (Amlodipine Besylate*) 5 Mg Tablet, 5 MG GTB DAILY, #30 TAB 06/03/16 Magnesium Oxide* (Mag-Oxide*) 400 Mg Tablet, 400 MG GTB BID, TAB 06/03/16 Levetiracetam* (Levetiracetam*) 500 Mg Tablet, 500 MG GTB BID, TAB 06/03/16 Allopurinol* (Allopurinol*) 100 Mg Tablet, 100 MG GTB DAILY, TAB 06/03/16 Metformin Hcl* (Metformin Hcl*) 500 Mg Tablet, 500 MG GTB BID, #30 TAB 06/03/16 Allergies Allergies: Coded Allergies: codeine (Verified Allergy, Severe, Vomitted, 12/15/16) PMhx/Soc History of Surgery: Yes (Extraction brain Hematoma, R knee, GTUBE) Anesthesia Reaction: No Hx Neurological Disorder: No Hx Respiratory Disorders: No Hx Cardiac Disorders: Yes (htn,hyperlipidemia) Hx Psychiatric Problems: No Hx Miscellaneous Medical Probl: No Hx Alcohol Use: Yes (occassional) Hx Substance Use: No Hx Tobacco Use: No Smoking Status: Never smoker Physical Exam Vitals Stable, triage notes reviewed Physical Exam Const: Well-nourished well-hydrated well-appearing no acute distress Head: Eyes: ENT: Normal External Ears, Nose and Mouth., Patient is hard of hearing Neck: Resp: Clear to auscultation bilaterally no rales wheezes or rhonchi, no respiratory distress Cardio: S1-S2, no S3-S4 regular rate and rhythm, no murmurs Abd: Soft, non tender, non distended. No bladder tenderness no epigastric tenderness no Ortega point tenderness no McBurney's point tenderness Skin: Back: No midline or flank tenderness Ext: No cyanosis, or edema Neur: Awake and alert Psych: Normal Mood and Affect Procedures/MDM This 86-year-old male patient presents to emergency department by family when evenings in and out catheter produced no urine. Patient has a history of one year of Shultz catheter treatment status post septic shock with multiorgan system failure. Patient is alert oriented hard of hearing but able to make all needs known. States he has not tried to urinate since catheter came out, family has not had him try to urinate on his own since catheter has been removed. Patient denies bladder pain, has not urinated or experienced incontinence today, last in and out cath was 12 hours ago. Patient is on a 400 cc daily fluid restriction. Encouraged to try to urinate. Patient was able to urinate with out catheterization 150 cc of urine. Urine will not be sent for culture and sensitivity or dipped for infection patient has no symptoms of infection, has a past medical history of chronic UTIs with suspected colonization is being followed by infectious disease. Patient was here today for evaluation of anuria. Patient is voiding without deficit I feel patient is stable to go home and follow-up with primary care physician week. Patient is stable with no new complaints during ER course, clinically there is no current evidence to suggest urosepsis, pyelonephritis, prostatitis, urinary tract infection. Or any other emergent condition appearing to require further evaluation or hospitalization. I feel the patient is stable for discharge at this time. I have discussed results, examination findings, the treatment plan with the patient and family present prior to discharge. Indications for emergent reevaluation, side effects of medication were also discussed. All questions were answered. Patient verbalizes understanding and agrees with plan of care. Departure Diagnosis: Primary Impression: Genitourinary symptoms Condition: Good Patient Instructions: Urinary Retention, Male Comments Thank you for for coming to the [facility] for your care today. Please ask your nurse or provider if you have questions about your care today and do not leave until all your questions have been answered. Please use any medications given as directed and follow-up with your doctor (or the doctor you were referred to) in the next 2-3 days. If you do not have a primary care doctor you may follow up at the [facility] (listed below). You may also use motrin and tylenol as needed for fever and/or pain unless instructed otherwise by your provider or nurse. Indications for more urgent follow-up have been discussed, but you may return to the Emergency Department at ANY time for any worrisome or worsening symptoms. If you have abdominal pain, please know that no test or exam you received is perfect and you should follow up within 8 hours for continued pain. If you had any imaging studies today, such as an X-Ray or CT Scan, these studies will be reviewed later by a radiologist. You will be called if there are important findings that were not identified today, so make sure the contact information you provided at registration is correct. If you received any narcotic pain control medicine today, such as Vicodin, Morphine or Dilaudid, your coordination and judgment may be affected for a number of hours. Please do not drive or operate heavy machinery, and you may want someone to assist you at home. If you were given a prescription for narcotic medication, be aware that it is very addictive- use sparingly and only if necessary. ROYAL SÁNCHEZ Dec 10, 2016 23:01
== END 2016-12-10 23:54 | disposition home or self-care (01) ==
LOC: FTE 22:23
DX: R39.89 Other symptoms and signs involving the genitourinary system (principal); I10 Essential (primary) hypertension; Z79.4 Long term (current) use of insulin; Z79.84 Long term (current) use of oral hypoglycemic drugs
CPT/HCPCS: 99283; P9612

== ENCOUNTER 2016-12-15 21:10 | Emergency (ER) | payer MEDICARE, OTHER ==
[~2016-12-15] VITALS: Ht 162.6 cm; Wt 56.8 kg
[2016-12-15 21:28] VITALS: Ht 162.6 cm; Wt 56.8 kg
[2016-12-15 23:24] LABS: BASOPHILS % 0.6 % (0.0-2.0); EOSINOPHILS # 0.2 10^3/ul (0.0-0.5); EOSINOPHILS % 3.2 % (0.0-7.0); HEMATOCRIT 38.6 % (42.0-52.0); HEMOGLOBIN 13.2 g/dl (14.0-18.0); LYMPHOCYTES # 2.2 10^3/ul (0.8-2.9); LYMPHOCYTES % 31.7 % (15.0-51.0); MEAN CORPUSCULAR HEMOGLOBIN 29.2 pg (29.0-33.0); MEAN CORPUSCULAR HGB CONC 34.2 g/dl (32.0-37.0); MEAN CORPUSCULAR VOLUME 85.4 fl (82.0-101.0); MEAN PLATELET VOLUME 9.3 fl (7.4-10.4); MONOCYTE # 0.6 10^3/ul (0.3-0.9); MONOCYTES % 8.3 % (0.0-11.0); NEUTROPHILS % 55.9 % (39.0-77.0); PLATELET COUNT 201 10^3/UL (140-415); RED BLOOD COUNT 4.52 10^6/ul (4.70-6.10); RED CELL DISTRIBUTION WIDTH 13.1 % (11.5-14.5)
[2016-12-15 23:29] LABS: ADD UMIC YES; UR AMORPHOUS CRYSTAL FEW /HPF (NONE SEEN); UR ASCORBIC ACID 40 mg/dL (NEGATIVE); UR BILIRUBIN (Dip) NEGATIVE (NEGATIVE); UR BLOOD (Dip) NEGATIVE (NEGATIVE); UR CLARITY SLIGHTLY CLOUDY (CLEAR); UR COLOR YELLOW (YELLOW); UR GLUCOSE (Dip) NEGATIVE (NEGATIVE); UR KETONES (Dip) NEGATIVE (NEGATIVE); UR LEUKOCYTE ESTERASE (Dip) TRACE Leu/ul (NEGATIVE); UR NITRITE (Dip) NEGATIVE (NEGATIVE); UR RBC 1 /HPF (0-5); UR SPECIFIC GRAVITY (Dip) 1.017 (1.003-1.030); UR TOTAL PROTEIN (Dip) NEGATIVE (NEGATIVE); UR UROBILINOGEN (Dip) NEGATIVE (NEGATIVE)
[2016-12-15 23:41] LABS: ALBUMIN 3.3 g/dl (3.3-4.9); ALBUMIN/GLOBULIN RATIO 1.1; BILIRUBIN,INDIRECT 0.2 mg/dl (0-1.1); BILIRUBIN,TOTAL 0.2 mg/dl (0.2-1.3); CALCIUM 9.2 mg/dl (8.4-10.2); CREATININE 0.79 mg/dl (0.61-1.24); MAGNESIUM 1.8 mg/dl (1.7-2.5); PHOSPHORUS 2.7 mg/dl (2.5-4.9); TOTAL PROTEIN 6.3 g/dl (6.1-8.1)
--- NOTE | 2016-12-15 23:57 | ERD ---
ER Documentation Chief Complaint Date/Time DATE: 12/15/16 TIME: 23:56 Chief Complaint unable to void x 12 hours. straight caths at home. HPI 86-year-old male comes in with complaints of urinary retention over the past 12 hours. No fevers no chills no nausea no vomiting. No other current complaints. History of straight cathing. No other current complaints ROS All systems reviewed and are negative except as per history of present illness. Medications Home Meds Reported Medications Sodium Chloride* (Sodium Chloride*) 1 Gm Tablet, 1 GM GTB TID, TAB 08/14/16 Famotidine* (Famotidine*) 20 Mg Tablet, 20 MG GTB BID Y for GASTROINTESTINAL UPSET, #60 TAB 08/14/16 Escitalopram Oxalate* (Lexapro*) 10 Mg Tablet, 10 MG GTB DAILY, #30 TAB 08/14/16 Spironolactone* (Aldactone*) 25 Mg Tablet, 25 MG GTB DAILY, #30 TAB 08/14/16 Insulin Glargine* (Lantus*) 100 Unit/Ml Soln, 10 UNIT SC QHS, #1 VIAL 08/14/16 Chlorpheniramine Maleate (CHLORPHENIRAMINE MALEATE) 12 Mg Tablet.er, 12 MG GTB for allergy relief, TAB 06/03/16 Lactobacillus Combination No.4 (SENIOR PROBIOTIC) 1 Each Capsule, 1 EACH GTB DAILY, CAP 06/03/16 Acetaminophen* (Tylophen*) 500 Mg Capsule, 500 MG GTB Q6H Y for PAIN LEVEL 4-6, TAB 06/03/16 Multivit with Iron-Minerals (Spectravite Senior) 1 Each Tablet, 1 EACH GTB DAILY , TAB 06/03/16 Clonidine Hcl* (Clonidine Hcl*) 0.1 Mg Tab, 0.1 MG GTB Q4H Y for ELEVATED BLOOD PRESSURE, TAB 06/03/16 Cholecalciferol (Vitamin D3) (Vitamin D3) 4,000 Unit Capsule, 2000 UNIT GTB DAILY, CAP 06/03/16 Amlodipine Besylate* (Amlodipine Besylate*) 5 Mg Tablet, 5 MG GTB DAILY, #30 TAB 06/03/16 Magnesium Oxide* (Mag-Oxide*) 400 Mg Tablet, 400 MG GTB BID, TAB 06/03/16 Levetiracetam* (Levetiracetam*) 500 Mg Tablet, 500 MG GTB BID, TAB 06/03/16 Allopurinol* (Allopurinol*) 100 Mg Tablet, 100 MG GTB DAILY, TAB 06/03/16 Metformin Hcl* (Metformin Hcl*) 500 Mg Tablet, 500 MG GTB BID, #30 TAB 06/03/16 Allergies Allergies: Coded Allergies: codeine (Verified Allergy, Severe, Vomitted, 12/15/16) PMhx/Soc History of Surgery: Yes (Extraction brain Hematoma, R knee, GTUBE) Anesthesia Reaction: No Hx Neurological Disorder: No Hx Respiratory Disorders: No Hx Cardiac Disorders: Yes (htn,hyperlipidemia) Hx Psychiatric Problems: No Hx Miscellaneous Medical Probl: No Hx Alcohol Use: Yes (occassional) Hx Substance Use: No Hx Tobacco Use: No Smoking Status: Never smoker Physical Exam Vitals Vital Signs Date Time Temp Pulse Resp B/P Pulse Ox O2 Delivery O2 Flow Rate FiO2 12/15/16 23:43 79 16 134/70 98 Room Air 12/15/16 21:28 97.8 58 18 124/65 98 Physical Exam Const: [] Head: Atraumatic Eyes: Normal Conjunctiva ENT: Normal External Ears, Nose and Mouth. Neck: Full range of motion..~ No meningismus. Resp: Clear to auscultation bilaterally Cardio: Regular rate and rhythm, no murmurs Abd: Soft, non tender, non distended. Normal bowel sounds Skin: No petechiae or rashes Back: No midline or flank tenderness Ext: No cyanosis, or edema Neur: Awake and alert Psych: Normal Mood and Affect Result Diagram: 12/15/165 12/15/162314 Results 24 hrs Laboratory Tests Test 12/15/16 23:00 12/15/16 23:15 Urine Color YELLOW Urine Clarity SLIGHTLY CLOUDY Urine pH 7.0 Urine Specific [place] 1.017 Urine Ketones NEGATIVEmg/dL Urine Nitrite NEGATIVEmg/dL Urine Bilirubin NEGATIVEmg/dL Urine Urobilinogen NEGATIVEmg/dL Urine Leukocyte Esterase TRACELeu/ul Urine Microscopic RBC 1/HPF Urine Microscopic WBC 7/HPF Urine Amorphous Crystals FEW/HPF Urine Hemoglobin NEGATIVEmg/dL Urine Glucose NEGATIVEmg/dL Urine Total Protein NEGATIVEmg/dl White Blood Count 7.010^3/ul Red Blood Count 4.5210^6/ul Hemoglobin 13.2g/dl Hematocrit 38.6% Mean Corpuscular Volume 85.4fl Mean Corpuscular Hemoglobin 29.2pg Mean Corpuscular Hemoglobin Concent 34.2g/dl Red Cell Distribution Width 13.1% Platelet Count 16063^3/UL Mean Platelet Volume 9.3fl Neutrophils % 55.9% Lymphocytes % 31.7% Monocytes % 8.3% Eosinophils % 3.2% Basophils % 0.6% Nucleated Red Blood Cells % 0.0/100WBC Neutrophils # (Manual) 3.910^3/ul Lymphocytes # 2.210^3/ul Monocytes # 0.610^3/ul Eosinophils # 0.210^3/ul Basophils # 0.010^3/ul Nucleated Red Blood Cells # 0.010^3/ul Sodium Level 134mmol/L Potassium Level 4.0mmol/L Chloride Level 103mmol/L Carbon Dioxide Level 25mmol/L Anion Gap 10 Blood Urea Nitrogen 30mg/dl Creatinine 0.79mg/dl Glucose Level 73mg/dl Calcium Level 9.2mg/dl Phosphorus Level 2.7mg/dl Magnesium Level 1.8mg/dl Total Bilirubin 0.2mg/dl Direct Bilirubin 0.00mg/dl Indirect Bilirubin 0.2mg/dl Aspartate Amino Transf (AST/SGOT) 18IU/L Alanine Aminotransferase (ALT/SGPT) 31IU/L Alkaline Phosphatase 92IU/L Total Protein 6.3g/dl Albumin 3.3g/dl Globulin 3.00g/dl Albumin/Globulin Ratio 1.10 Lipase 160U/L Procedures/MDM Medical decision-makin-year-old male comes in with urinary retention. Shultz catheter placed good diuresis. Discharged home with leg bag. Started on ciprofloxacin. Follow-up with PCP. Departure Diagnosis: Primary Impression: Retention of urine Condition: Stable YINKA IBARRA Dec 15, 2016 23:57
[2016-12-15] MEDS ORDERED: CIPR500T4 PO (23:58)
[2016-12-16 00:17] VITALS: BP 139/71; PULSE 82; RESP 20; TEMP 97.7
== END 2016-12-16 00:17 | disposition home or self-care (01) ==
LOC: E/R 21:10
DX: R33.9 Retention of urine, unspecified (principal); I10 Essential (primary) hypertension; E11.9 Type 2 diabetes mellitus without complications; Z79.4 Long term (current) use of insulin; Z79.84 Long term (current) use of oral hypoglycemic drugs
CPT/HCPCS: 80053; 81001; 83690; 83735; 84100; 85025; 87086

== ENCOUNTER → 2016-12-26 | Outpatient (CLI) | payer MEDICARE, OTHER ==
[~2016-12-26] MED LIST changes: +CIPR500T4 PO
== END | disposition home or self-care (01) ==
LOC: C/S 10:57
PROVIDERS: ATTEND Internal Medicine
DX: R51 Headache (principal)
CPT/HCPCS: 70450

== ENCOUNTER → 2017-03-26 | Outpatient (CLI) | END | disposition home or self-care (01) ==